=== PATIENT | male | born 1935 | race Caucasian/White ===

== ENCOUNTER → 2016-11-07 | Outpatient (CLI) | payer MEDICARE, OTHER ==
[~2016-11-07] MED LIST: APIX5TAB PO; CHOL5000 PO; CHRO1TAB7 PO; CINN500C2 PO; CINNAMON PO; COCO1000 PO; ESCT10T PO; FAMO-119 PO; FISH1CAP15 PO; FLUT10SP NS; FLUT1DIS26 IH; GABA600T2 PO; GARLIC PO; GBPN300C PO; GLUC500C2 PO; HYDR-757 PO; LEVO5TAB2 PO; LISI10TA PO; LORA0.5T PO; LUTE10TA PO; MELO-195 PO; MNTL10T PO; MULT-608 PO; NEBI5TAB8 PO; PARSLEY PO; ROYAL JELLY PO; TAMS0.4C2 PO
--- NOTE | 2016-11-07 18:15 | Diagnostic Imaging Report ---
PA and lateral views of the chest. INDICATION: Shortness of breath. FINDINGS: The lungs are clear. There is mild hyperinflation, however. No effusion or pneumothorax. The heart size is normal. The mediastinum and maritza appear unremarkable. IMPRESSION: Hyperinflated clear lungs. Dictated by: Dictated on workstation # [id number]
== END ==
LOC: RAD 11:17
PROVIDERS: ATTEND Internal Medicine Critical Care Medicine
DX: G47.30 Sleep apnea, unspecified (principal); J44.9 Chronic obstructive pulmonary disease, unspecified; F41.9 Anxiety disorder, unspecified; R06.00 Dyspnea, unspecified
CPT/HCPCS: 71020

== ENCOUNTER → 2016-11-15 | Outpatient (CLI) | payer MEDICARE, OTHER | LOC: RT 12:44 | PROVIDERS: ATTEND Internal Medicine Critical Care Medicine | DX: R06.00 Dyspnea, unspecified (principal); J44.9 Chronic obstructive pulmonary disease, unspecified; G47.30 Sleep apnea, unspecified; F41.9 Anxiety disorder, unspecified | CPT/HCPCS: 94060; 94726; 94729 ==

== ENCOUNTER 2016-11-20 20:00 | Outpatient (CLI) | payer MEDICARE, OTHER | END 2016-11-21 06:55 | disposition home or self-care (01) | LOC: SLEEP 20:00 | PROVIDERS: ATTEND Internal Medicine Critical Care Medicine | DX: G47.30 Sleep apnea, unspecified (principal); R06.00 Dyspnea, unspecified; J44.9 Chronic obstructive pulmonary disease, unspecified; F41.9 Anxiety disorder, unspecified | CPT/HCPCS: 95811 ==

== ENCOUNTER → 2017-01-01 | Outpatient (CLI) | payer MEDICARE, OTHER ==
--- NOTE | 2017-01-03 08:37 | ECHOCARDIOGRAPHY REPORT ---
DATE OF SERVICE: 01/01/2017 REFERRING PHYSICIAN: Dr. Quintero MEASUREMENT: LVID end diastolic 5.0. IVS thickness 1.0. LVPW thickness 1.0. Left atrial diameter 3.3. Ejection fraction 60%. FINDINGS: 1. Technical quality is good. 2. The left ventricle is normal in size with normal contractility, systolic function appears to be normal. Estimated ejection fraction is 60%. 3. The left atrium is normal in size. No clot or thrombus was seen within the left atrium. 4. The right atrium and right ventricle are normal in size. No clot or thrombus were seen within the right side. 5. Mitral valve is normal in morphology with mild mitral regurgitation noted by color Doppler flow. No mitral valve prolapse. No mitral valve stenosis. 6. Aortic valve is trileaflet with normal opening and closing pattern, no significant aortic stenosis or regurgitation was seen. 7. Tricuspid valve is normal in morphology with mild tricuspid regurgitation noted by color Doppler flow, Doppler across tricuspid valve estimated pulmonary artery pressure of 9 + right atrial pressure. 8. Pulmonic valve is functioning normally. 9. No pericardial effusion. CONCLUSION: 1. Normal left ventricular size and systolic function. Estimated ejection fraction 60%. 2. Mild mitral regurgitation. Mild tricuspid regurgitation. 3. Estimated pulmonary artery pressure of 15 mmHg. Job ID: [id number] DocumentID: [id number] Dictated Date: 01/02/2017 15:01:29 Baggage Inspector Date: 01/03/2017 07:09:24 Dictated By: PANTERA MCDUFFIE MD
== END ==
LOC: CARD 12:00
PROVIDERS: ATTEND Internal Medicine Cardiovascular Disease
DX: R07.9 Chest pain, unspecified (principal); R06.00 Dyspnea, unspecified; I63.9 Cerebral infarction, unspecified; I26.99 Other pulmonary embolism without acute cor pulmonale; J44.9 Chronic obstructive pulmonary disease, unspecified; F17.201 Nicotine dependence, unspecified, in remission
CPT/HCPCS: 93306

== ENCOUNTER → 2017-01-02 | Outpatient (CLI) | payer MEDICARE, OTHER ==
[2017-01-02 09:29] LABS: ALBUMIN 4.1 G/DL (3.2-4.5); BILIRUBIN,TOTAL 0.4 MG/DL (0.1-1.0); CALCIUM 9.3 MG/DL (8.5-10.1); CREATININE SERUM 1.22 MG/DL (0.60-1.30)
[2017-01-03 07:22] LABS: HOMOCYSTEINE 18.6 umol/L (<=10.3)
[2017-01-04 08:02] LABS: LUPUS ANTICOAGULANT PTT 36.1 Seconds (24.4-41.7)
[2017-01-04 08:03] LABS: DIL RUSSELL VIPER VENOM SCREEN 1.25 ratio (0.00-1.20)
[2017-01-04 08:04] LABS: DRVVT SCREEN 1:1 MIX 1.08 ratio (0.00-1.20)
[2017-01-04 08:12] LABS: INR REF RML 1.2 (0.7-1.3); PT REF RML 14.9 SEC (10.5-15.7)
[2017-01-04 08:13] LABS: PTT LUPUS 34.6 SEC (20.6-39.2)
[2017-01-05 08:06] LABS: FACTOR 8 (VIII) ASSAY C 331 % (60-150)
[2017-01-08 07:56] LABS: FACTOR II 20210 MUTATIONC HET MUT (NEG)
[2017-01-08 07:57] LABS: FACTOR II 20210 MUTATION INT SEE FOOTNOTE
[2017-01-09 10:16] LABS: CLIN PATHOLOGY REPORT FOOTNOTE
== END ==
LOC: LAB 08:15
PROVIDERS: ATTEND Internal Medicine Cardiovascular Disease
DX: R07.9 Chest pain, unspecified (principal); R06.00 Dyspnea, unspecified; I63.9 Cerebral infarction, unspecified; F17.201 Nicotine dependence, unspecified, in remission; I26.99 Other pulmonary embolism without acute cor pulmonale; J44.9 Chronic obstructive pulmonary disease, unspecified
CPT/HCPCS: 36415; 80053; 80061; 81240; 83090; 85240; 85307; 85610; 85613; 85705; 85730; 86146; 86147

== ENCOUNTER → 2017-01-03 | Outpatient (CLI) | payer MEDICARE, OTHER ==
[~2017-01-03] VITALS: Ht 172.7 cm; Wt 121.6 kg
[~2017-01-03] MED LIST changes: +CATHETER FLUSH 10 ML SYR IV PRN; +REGADENOSON 0.4 MG/5 ML SYR (LEXISCAN) IV ONE
[2017-01-03 09:22] VITALS: BP 130/61
[2017-01-03 09:28] VITALS: BP 151/56
[2017-01-03 09:41] VITALS: BP 130/58
[2017-01-03 09:43] VITALS: BP 129/68
--- NOTE | 2017-01-05 06:37 | STRESS TEST ---
DATE OF SERVICE: 01/03/2017 PROCEDURE: LEXISCAN MYOVIEW STRESS TEST REFERRING PHYSICIAN: Dr. Quintero FINDINGS: Baseline heart rate is 60. Baseline blood pressure 130/61. Baseline EKG is sinus rhythm with no ischemic changes. SUMMARY: The patient was injected with 10.31 millicurie of technetium-99 Myoview. The resting images were obtained. Then the patient started exercising with baseline heart rate, blood pressure and EKG as mentioned above. After 3 minutes and 35 seconds the patient was unable to exercise any further. Heart rate was 104. No ischemic changes were noted. There were nondiagnostic changes with [address] depression in lead II, [address] depression in aVF. Blood pressure was 161/56. The patient was given 0.4 mg of Lexiscan, followed by 29.6 millicurie of technetium-99 Myoview. Throughout the test there were no EKG changes. The resting and stress images were reviewed and compared in the short axis, horizontal long axis and vertical long axis views. Review of the images showed diaphragmatic attenuation which is affecting the quality of the images. There is mild decreased uptake at the mid to apical inferior wall and inferolateral wall with subtle reversibility. SSS is 8. SVS is 8. TID value 1.01. On the Gated images the left ventricle appeared to be normal size with normal contractility. Calculated ejection fraction 74%. CONCLUSIONS: 1. Poor exercise tolerance. The patient was able to exercise for 3 minutes 35 seconds on Terrence protocol. He did not achieve his target heart rate. Test was converted to Lexiscan Myoview stress test. 2. Nondiagnostic EKG changes with exercise returned to baseline during recovery. 3. No EKG changes with Lexiscan injection. 4. Diaphragmatic attenuation affecting the quality of the images with mild decreased uptake at the mid to apical inferior wall and inferolateral wall with subtle reversibility. No significant ischemia or infarction was noted. 5. Normal left ventricular size with normal contractility. Calculated ejection fraction 74%. Job ID: [id number] DocumentID: [id number] Dictated Date: 01/03/2017 14:04:49 Buggy Operator Date: 01/04/2017 02:07:39 Dictated By: PANTERA MCDUFFIE MD
== END ==
LOC: CARD 06:54
PROVIDERS: ATTEND Internal Medicine Cardiovascular Disease
DX: R07.9 Chest pain, unspecified (principal); R06.02 Shortness of breath; I63.9 Cerebral infarction, unspecified; I26.99 Other pulmonary embolism without acute cor pulmonale; J44.9 Chronic obstructive pulmonary disease, unspecified; F17.201 Nicotine dependence, unspecified, in remission
CPT/HCPCS: 78452; 93017

== ENCOUNTER → 2017-01-09 | Outpatient (CLI) | payer MEDICARE, OTHER ==
[~2017-01-09] MED LIST changes: -CATHETER FLUSH 10 ML SYR IV PRN; -REGADENOSON 0.4 MG/5 ML SYR (LEXISCAN) IV ONE
[2017-01-12 14:14] LABS: FACTOR 5 (LEIDEN) MUTATION Negative (Negative)
[2017-01-15 07:58] LABS: FACTOR 5 LEIDEN INTERP See Footnote
== END ==
LOC: LAB 10:47
PROVIDERS: ATTEND Internal Medicine Cardiovascular Disease
DX: I82.409 Acute embolism and thrombosis of unspecified deep veins of unspecified lower extremity (principal)
CPT/HCPCS: 36415; 81241

== ENCOUNTER 2017-01-31 19:50 | Outpatient (CLI) | payer MEDICARE, OTHER | END 2017-02-01 06:55 | disposition home or self-care (01) | LOC: SLEEP 19:50 | PROVIDERS: ATTEND Internal Medicine Critical Care Medicine | DX: G47.33 Obstructive sleep apnea (adult) (pediatric) (principal) | CPT/HCPCS: 95811 ==

== ENCOUNTER 2017-02-18 03:28 | Emergency (ER) | payer MEDICARE, OTHER ==
[~2017-02-18] VITALS: Ht 172.7 cm; Wt 116.1 kg
--- NOTE | 2017-02-18 04:20 | ED EENT ---
History of Present Illness General Chief Complaint: Oral/Throat Problems Stated Complaint: SORE THROAT Nursing Triage Note: PT AMBULATED TO ROOM. PT STATES HE HAS BEEN HAVING A SORE THROAT SINCE SUNDAY. COUGHING FOR ABOUT A WEEK. SPUTUM PRESENT SOMETIMES. Source: patient Exam Limitations: no limitations History of Present Illness Time seen by provider: 04:10 Initial Comments Here with report of sore throat, cough, runny nose and facial pain/congestion it 's been going on for a week. Does note sputum production. Denies fevers. He has had increasing steroid recently and is tapering and this has not helped. Cough medicines and cough drops are not helping. Denies chest pain. Main complaint is throat pain, facial fullness and ear pain. Timing/Duration: gradual, last week Severity: moderate Location: nose, throat, facial Prearrival Treatment: over the counter meds, prescription meds Modifying Factors: Worse With Coughing, Improves With Rest Associated Symptoms: cough, facial pain/swelling, No fever, nasal congestion/ drainage, sinus infection, sore throat, No tooth pain, No voice change Allergies and Home Medications Allergies Uncoded Allergies: ENVIRONMENTAL (Allergy, Unknown, 11/02/15) Home Medications Apixaban 5 Mg Tablet, 10 MG PO BID, #14 Ref 0 Prescribed by: SIMONE MILES on 10/30/15 0935 Cholecalciferol (Vitamin D3) 5,000 Unit Capsule, 5,000 UNIT PO DAILY, (Reported) Escitalopram Oxalate 10 Mg Tablet, 1 EACH PO DAILY, (Reported) Famotidine 20 Mg Tablet, 20 MG PO BID, #30 Ref 0 Prescribed by: CARMEL FELTON on 11/01/15 2336 Fluticasone Furoate 10 Gm [place].susp, 10 GM NS Q8 PRN, (Reported) USES FOR NASAL CONGESTION Fluticasone/Salmeterol 1 Each Blst.w.dev, 1 PUFF IH BID, (Reported) Gabapentin 600 Mg Tablet, 1,200 MG PO HS, (Reported) Hydrocodone/Acetaminophen 1 Each Tablet, 1 TAB PO DAILY, (Reported) Levocetirizine Dihydrochloride 5 Mg Tablet, 5 MG PO DAILY, (Reported) Levofloxacin 500 Mg Tablet, 500 MG PO DAILY, #7 Ref 0 Prescribed by: BRANDEN ROSAS on 02/18/17 0542 Lisinopril 10 Mg Tablet, 10 MG PO DAILY, (Reported) Lorazepam 0.5 Mg Tablet, 0.5 MG PO HS, (Reported) Meloxicam 15 Mg Tablet, 15 MG PO DAILY, (Reported) Montelukast Sodium 10 Mg Tablet, 1 TAB PO DAILY, (Reported) Tamsulosin HCl 0.4 Mg Cap.er.24h, 0.4 MG PO DAILY, (Reported) Review of Systems Constitutional: see HPI, No chills, No fever Eyes: No Symptoms Reported Ears: See HPI, Pain Nose: purulent discharge Mouth: no symptoms reported Throat: see HPI, pain, denies swelling, denies neck stiffness, denies aphonia Respiratory: see HPI, cough, No short of breath Cardiovascular: no symptoms reported Gastrointestinal: no symptoms reported All Other Systems Reviewed Negative Unless Noted: Yes Past Sononoy-Qkgqsw-Jfooes Hx Patient Social History Alcohol Use: Denies Use Recreational Drug Use: No Smoking Status: Former Smoker Type Used: Cigarettes Former Smoker/When Quit: Oct 29, 1989 2nd Hand Smoke Exposure: Yes Recent Foreign Travel: No Contact w/Someone Who Travel: No Recent Infectious Disease Expo: No Recent Hopitalizations: No Immunizations Up To Date Tetanus Booster (TDap): Less than 5yrs PED Vaccines UTD: Yes Date of Pneumonia Vaccine: Jun 28, 2009 Date of Influenza Vaccine: Jun 28, 2015 Seasonal Allergies Seasonal Allergies: Yes Surgeries HX Surgeries: Yes Surgeries: Appendectomy, Gallbladder Respiratory Hx Respiratory Disorders: Yes (WEARS CPAP AT NITE) Cardiovascular Hx Cardiac Disorders: No Neurological Hx Neurological Disorders: No Reproductive System Hx Reproductive Disorders: No Sexually Transmitted Disease: No Genitourinary Hx Genitourinary Disorders: Yes (KIDNEY STONE) Gastrointestinal Hx Gastrointestinal Disorders: Yes (POLYPS REMOVED FROM COLON) Musculoskeletal Hx Musculoskeletal Disorders: Yes (ARTHRITIS/BULGING DISC/SCIATIC NERVE PROBLEMS) Endocrine Hx Endocrine Disorders: No HEENT HX ENT Disorders: No HEENT Disorders: Cataract Cancer Hx Cancer: Yes Cancer: Skin Psychosocial Hx Psychiatric Problems: No Integumentary HX Skin/Integumentary Disorder: No Blood Transfusions Hx Blood Disorders: No Adverse Reaction to a Blood Tr: No Reviewed Nursing Assessment Reviewed/Agree w Nursing PMH: Yes Family Medical History Significant Family History: No Pertinent Family Hx Physical Exam Vital Signs Vital Sign - Last 12Hours 02/18/17 03:41 Temp 97.8 Pulse 62 Resp 20 B/P (MAP) 116/62 Pulse Ox 95 O2 Delivery Room Air General Appearance: WD/WN, no apparent distress Eyes: bilateral eye EOMI, bilateral eye PERRL, bilateral eye normal inspection Ears: bilateral ear TM normal, bilateral ear auricle normal, bilateral ear canal normal Nose: No active bleeding, discharge, sinus tenderness Mouth/Throat: pharynx tenderness, No trismus, No voice changes Neck: full range of motion, supple, normal inspection Cardiovascular: regular rate, rhythm, no murmur Respiratory: lungs clear, normal breath sounds Gastrointestinal: non tender, soft Neurologic/Psychiatric: alert, oriented x 3 Skin: normal color, warm/dry Progress/Results/Core Measures Results/Orders My Orders Orders - BRANDEN ROSAS MD Chest Pa/Lat (2 View) (02/18/17 04:19) Albuterol/Ipra Inhalation Soln (Duoneb I (02/18/17 04:30) Svn Sm Volume Nebulizer Rt-Rfs (02/18/17 04:19) Dexamethasone Pf Injection (Decadron Pf (02/18/17 05:29) Levofloxacin Tablet (Levaquin Tablet) (02/18/17 05:32) Medications Given in ED Current Medications Medications Dose Ordered Sig/Erica Route Start Time Stop Time Status Last Admin Dose Admin Albuterol/ Ipratropium 3 ml ONCE ONCE INH 02/18/17 04:30 02/18/17 04:31 DC 02/18/17 04:29 3 ML Vital Signs/I&O Vital Sign - Last 12Hours 02/18/17 02/18/17 03:41 04:30 Temp 97.8 Pulse 62 Resp 20 B/P (MAP) 116/62 Pulse Ox 95 95 O2 Delivery Room Air Room Air Blood Pressure Mean: 80 Progress Note : Progress Note Seen and evaluated. Chest x-ray ordered. Duo neb ordered. This did not significantly help. Patient does have anterior sinus tenderness with complaint of ear fullness and nasal congestion. He has persistent cough. No indication of pneumonia. Does have concerning findings for sinusitis. Decadron 10 mg IM. Levaquin 500 mg by mouth initiated. Discharged home with return precautions. Patient verbalize understanding instructions and agreement with plan. He is to follow-up with Dr. Quintero earlier this week for recheck and further evaluation. Departure Impression Impression: Primary Impression: Sinusitis Qualified Codes: J01.90 - Acute sinusitis, unspecified Disposition: HOME, SELF-CARE Condition: Stable Departure-Patient Inst. Decision time for Depature: 05:38 Referrals: JENNA QUINTERO MD (PCP/Family) Primary Care Physician Patient Instructions: Sinusitis, Adult (DC) Add. Discharge Instructions: All discharge instructions reviewed with patient and/or family. Voiced understanding. Take medications as directed. Follow-up with Dr. Quintero early this week for recheck and further evaluation. You may use Afrin nasal spray or the generic, 12 hour relief, 2 sprays to each nostril twice daily for 3 days only and then stop. Do not use more than 3 days. Scripts Levofloxacin (Levofloxacin) 500 Mg Tablet 500 MG PO DAILY, #7 TAB 0 Refills Prov: BRANDEN ROSAS MD 02/18/17 Copy Copies To 1: JENNA QUINTERO MD, TIMOTHY D MD Feb 18, 2017 04:20
[2017-02-18] MEDS ORDERED: RT-ALBUTEROL/IPRATROPIUM 3 ML (DUONEB) VIAL INH ONE (04:30)
[2017-02-18] MEDS ORDERED: DEXAMETHASONE PF 10 MG/ML (DECADRON) VIAL IM STA (05:29)
[2017-02-18] MEDS ORDERED: LEVOFLOXACIN 500 MG TAB (LEVAQUIN) PO STA (05:32)
[2017-02-18] MEDS ORDERED: LEVO500T80 PO (05:42)
[2017-02-18 05:50] VITALS: BP 116/62
--- NOTE | 2017-02-18 10:19 | Diagnostic Imaging Report ---
COMPARISON: 11/07/16 Pulmonary vasculature slightly prominent but stable from previous imaging. Heart unremarkable. No infiltrates, effusions or pneumothorax. IMPRESSION: 1. Stable chest with minimal prominence of the pulmonary vasculature. Dictated by: Dictated on workstation # [id number]
== END 2017-02-18 05:50 | disposition home or self-care (01) ==
LOC: EDUNIT# 03:28 → ER 03:31
DX: J32.9 Chronic sinusitis, unspecified (principal); Z79.01 Long term (current) use of anticoagulants; Z87.891 Personal history of nicotine dependence
CPT/HCPCS: 71020; 94640; 99282

== ENCOUNTER → 2017-04-04 | Outpatient (CLI) | payer MEDICARE, OTHER ==
[~2017-04-04] MED LIST changes: +LEVO500T80 PO
[2017-04-04 10:09] LABS: ALBUMIN 3.8 GM/DL (3.2-4.5); BILIRUBIN,DIRECT 0.3 MG/DL (0.0-0.3); BILIRUBIN,INDIRECT 0.3 MG/DL; BILIRUBIN,TOTAL 0.6 MG/DL (0.1-1.0); TOTAL PROTEIN 6.6 GM/DL (6.4-8.2)
== END ==
LOC: LAB 09:20
PROVIDERS: ATTEND Physician Assistant
DX: E78.2 Mixed hyperlipidemia (principal)
CPT/HCPCS: 36415; 80061; 80076

== ENCOUNTER → 2018-02-12 | Outpatient (CLI) | payer MEDICARE, OTHER ==
[2018-02-12 08:59] LABS: BILIRUBIN,TOTAL 0.6 MG/DL (0.1-1.0); CALCIUM 9.3 MG/DL (8.5-10.1); CREATININE SERUM 1.43 MG/DL (0.60-1.30); POTASSIUM 4.1 MMOL/L (3.6-5.0); TOTAL PROTEIN 7.1 GM/DL (6.4-8.2)
== END ==
LOC: LAB 08:18
PROVIDERS: ATTEND Internal Medicine Cardiovascular Disease
DX: R07.9 Chest pain, unspecified (principal); R06.00 Dyspnea, unspecified; I63.9 Cerebral infarction, unspecified; F17.201 Nicotine dependence, unspecified, in remission; M54.5 Low back pain; R09.89 Other specified symptoms and signs involving the circulatory and respiratory systems
CPT/HCPCS: 36415; 80053; 80061; 84443

== ENCOUNTER → 2018-02-12 | Outpatient (CLI) | payer MEDICARE, OTHER ==
[~2018-02-12] MED LIST changes: +IOHEXOL 350 MG/ML 100 ML (OMNIPAQUE 350) VIAL IV ONE; +NS 250 ML (IVPB) BAG IV ONE
[2018-02-12 09:31] LABS: CREATININE SERUM 1.43 MG/DL (0.60-1.30)
--- NOTE | 2018-02-12 09:46 | Diagnostic Imaging Report ---
PROCEDURE: CT angiography of the chest with contrast. TECHNIQUE: Multiple contiguous axial images were obtained through the chest after uneventful bolus administration of intravenous contrast. Reconstructed CTA MIP acquisitions were also performed. INDICATION: Shortness of breath and hypoxia. Comparison made with prior examination 11/01/2015. FINDINGS: There are no discrete pulmonary nodules, masses or infiltrates. There is some COPD with mild bibasilar interstitial scarring. There is no pathologically enlarged adenopathy in the chest. No pleural or pericardial fluid. There is no pneumothorax. Heart size is normal. Thoracic aorta is normal in caliber without evidence of dissection. There are no filling defects seen within the pulmonary arteries to suggest pulmonary embolism. The visualized intra-abdominal structures are unremarkable apart from a left renal cyst. There are mild degenerative changes in the spine. IMPRESSION: Unremarkable CTA chest. Specifically, there is no evidence of pulmonary embolism or aortic dissection. COPD with mild bibasilar interstitial scarring. Left renal cyst. Thoracic spondylosis. Dictated by: Dictated on workstation # [id number]
== END ==
LOC: RAD 08:14
PROVIDERS: ATTEND Nurse Practitioner Family
DX: J98.4 Other disorders of lung (principal); J30.9 Allergic rhinitis, unspecified; M79.89 Other specified soft tissue disorders
CPT/HCPCS: 36415; 71275; 82565; 84520

== ENCOUNTER → 2018-02-25 | Outpatient (CLI) | payer MEDICARE, OTHER ==
[~2018-02-25] MED LIST changes: -IOHEXOL 350 MG/ML 100 ML (OMNIPAQUE 350) VIAL IV ONE; -NS 250 ML (IVPB) BAG IV ONE
== END ==
LOC: CARD 12:45
PROVIDERS: ATTEND Internal Medicine Cardiovascular Disease
DX: R07.9 Chest pain, unspecified (principal); R06.00 Dyspnea, unspecified; I07.1 Rheumatic tricuspid insufficiency; I63.9 Cerebral infarction, unspecified; R09.89 Other specified symptoms and signs involving the circulatory and respiratory systems; M54.5 Low back pain; F17.201 Nicotine dependence, unspecified, in remission
CPT/HCPCS: 93306

== ENCOUNTER → 2018-08-21 | Outpatient (CLI) | payer MEDICARE, OTHER ==
[~2018-08-21] VITALS: Ht 172.7 cm; Wt 122.0 kg
[~2018-08-21] MED LIST changes: +CATHETER FLUSH 10 ML SYR IV PRN; +HYDR-4226 PO; -HYDR-757 PO; +REGADENOSON 0.4 MG/5 ML SYR (LEXISCAN) IV ONE
[2018-08-21 09:22] VITALS: BP 157/86
[2018-08-21 09:25] VITALS: BP 155/82
--- NOTE | 2018-08-21 11:43 | STRESS TEST ---
DATE OF SERVICE: 08/21/2018 LEXISCAN MYOVIEW STRESS TEST REPORT REFERRING PHYSICIAN: Dr. Quintero. Baseline heart rate 66, baseline blood pressure 137/70. Baseline EKG is sinus rhythm with no ischemic changes. In summary, the patient was injected with 10.55 mCi of technetium-99 Myoview and the resting images were obtained. Then, the patient received 0.4 mg of Lexiscan followed by 29.0 mCi of technetium-99 Myoview. Throughout the test, there were no EKG changes. The resting and stress images were reviewed and compared in the short axis, horizontal long axis, and vertical long axis views. Review of the images showed good radiotracer uptake with mild apical thinning, no significant ischemia or infarction was seen. SSS is 3, SDS 3, TID value 1.09. On the gated images, the left ventricle appeared to be normal size with normal contractility. Calculated ejection fraction 67%. CONCLUSION: 1. The patient tolerated Lexiscan well. 2. Diaphragmatic attenuation with no significant ischemia or infarction on SPECT images. 3. Normal left ventricular size with normal contractility. Calculated ejection fraction 67%. Job ID: [id number] DocumentID: [id number] Dictated Date: 08/21/2018 11:26:38 Bench Manager Date: 08/21/2018 11:43:07 Dictated By: PANTERA MCDUFFIE MD
== END ==
LOC: CARD 07:21
PROVIDERS: ATTEND Internal Medicine Cardiovascular Disease
DX: R07.9 Chest pain, unspecified (principal); E78.2 Mixed hyperlipidemia; R06.02 Shortness of breath; K21.9 Gastro-esophageal reflux disease without esophagitis; J44.9 Chronic obstructive pulmonary disease, unspecified
CPT/HCPCS: 78452; 93017

== ENCOUNTER → 2018-10-17 | Outpatient (CLI) | payer MEDICARE, OTHER ==
[~2018-10-17] MED LIST changes: -CATHETER FLUSH 10 ML SYR IV PRN; -GABA600T2 PO; +GBPN600T PO; -REGADENOSON 0.4 MG/5 ML SYR (LEXISCAN) IV ONE
--- NOTE | 2018-10-17 12:49 | Diagnostic Imaging Report ---
TIME OF EXAM: 10/17/2018 12:39 PM REASON FOR EXAM: Back pain with radiculopathy. TECHNIQUE: Three views of the lumbar spine. COMPARISON: 03/30/2014. FINDINGS: There is mild right convex curvature of the lumbar spine centered at L1-L2. There is mild rightward translation of L2 on L3. There is grade 1 anterolisthesis of L5 on S1. There is mild diffuse osteopenia. Mild height loss of the lumbar spine at multiple levels appears to be chronic. No acute compression deformity is seen. There is moderate multilevel degenerative change throughout the lumbar spine, and marked at L5-S1. There is facet arthropathy in the lower lumbar spine. There is aortic atherosclerosis. IMPRESSION: 1. Grade 1 anterolisthesis and marked degenerative change at L5-S1 moderate degenerative changes elsewhere in the lumbar spine. No acute fractures seen. Dictated by: Dictated on workstation # [id number]
== END ==
LOC: RAD 11:58
PROVIDERS: ATTEND Student in an Organized Health Care Education/Training Program
DX: M47.817 Spondylosis without myelopathy or radiculopathy, lumbosacral region (principal); M54.16 Radiculopathy, lumbar region; M47.816 Spondylosis without myelopathy or radiculopathy, lumbar region; M70.62 Trochanteric bursitis, left hip
CPT/HCPCS: 72100

== ENCOUNTER → 2019-03-28 | Outpatient (CLI) | payer MEDICARE, OTHER ==
[2019-03-28 12:14] LABS: CREATININE SERUM 1.48 MG/DL (0.60-1.30)
== END ==
LOC: LAB 11:30
PROVIDERS: ATTEND Internal Medicine Cardiovascular Disease
DX: I65.23 Occlusion and stenosis of bilateral carotid arteries (principal)
CPT/HCPCS: 36415; 82565; 84520

== ENCOUNTER → 2019-04-11 | Outpatient (CLI) | payer MEDICARE, OTHER ==
[2019-03-28 12:14] LABS: CREATININE SERUM 1.48 MG/DL (0.60-1.30)
[~2019-04-11] MED LIST changes: +HOLD METFORMIN - RECEIVED CONTRAST 20 ML VIAL IV SCH; +IOHEXOL 350 MG/ML 100 ML (OMNIPAQUE 350) VIAL IV ONE; +NS 100 ML (IVPB) BAG IV ONE
[2019-04-11 12:18] LABS: CREATININE SERUM 1.29 MG/DL (0.60-1.30)
--- NOTE | 2019-04-11 13:44 | Diagnostic Imaging Report ---
REASON FOR EXAM: Bilateral carotid artery stenosis. TIME OF EXAM: 04/11/2019 1:31 PM COMPARISON: CTA chest on 02/12/2018. TECHNIQUE: Contrast-enhanced thin section helical images were obtained from the mediastinum to the sella with the bolus of contrast timed for the optimal opacification of the arterial structures of the neck per departmental CTA protocol. Postprocessing and retro-reconstruction with coronal and sagittal reformatted images of the angiographic views of the vessels were obtained and were reviewed. 3D reformatted images were reviewed. FINDINGS: The visualized portions of the aortic arch demonstrate no evidence of aneurysm or dissection. The origin of the arch vessels is unremarkable. The brachiocephalic artery is normal in course and caliber. The left common carotid origin is unremarkable. The right subclavian artery is normal in course and caliber. Both common carotid arteries are normal in course and caliber. Atherosclerotic plaque is seen in the bilateral carotid bulbs and proximal internal carotid arteries. There is approximately 70% stenosis of the proximal left ICA based on NASCET criteria (image 150, series 601). The left vertebral artery is dominant. The origin of the right vertebral artery is seen and is unremarkable. The origin of the left vertebral artery is seen and is unremarkable. There is no focal stenosis seen within the neck. There is no dissection. The vertebral arteries are well visualized to up to the level of the basilar artery. The osseous structures of the cervical spine demonstrate degenerative changes without acute abnormality. Included views through the lung apices demonstrate no focal consolidation. Included views through the intracranial structures demonstrate no acute abnormalities. Left mastoidectomy changes are noted with left-sided cochlear implant. IMPRESSION: 1. Approximately 70% stenosis in the proximal left ICA secondary to atherosclerotic plaque. Dictated by: Dictated on workstation # [id number]
== END ==
LOC: RAD 03-28 11:33
PROVIDERS: ATTEND Internal Medicine Cardiovascular Disease
DX: I65.23 Occlusion and stenosis of bilateral carotid arteries (principal)
CPT/HCPCS: 36415; 70498; 82565; 84520

== ENCOUNTER → 2019-06-20 | Outpatient (CLI) | payer MEDICARE, OTHER ==
[~2019-06-20] MED LIST changes: -HOLD METFORMIN - RECEIVED CONTRAST 20 ML VIAL IV SCH; -IOHEXOL 350 MG/ML 100 ML (OMNIPAQUE 350) VIAL IV ONE; -NS 100 ML (IVPB) BAG IV ONE; +RT-ALBUTEROL SULF 2.5 MG/3 ML PRE-MIX VIAL INH ONE; +RT-ALBUTEROL SULF 2.5 MG/3 ML PRE-MIX VIAL ONE
== END ==
LOC: RT 07:36
PROVIDERS: ATTEND Nurse Practitioner Family
DX: J30.9 Allergic rhinitis, unspecified (principal); J98.4 Other disorders of lung; G47.33 Obstructive sleep apnea (adult) (pediatric); G47.36 Sleep related hypoventilation in conditions classified elsewhere
CPT/HCPCS: 94060; 94726; 94729

== ENCOUNTER → 2019-07-04 | Outpatient (CLI) | payer MEDICARE, OTHER ==
[~2019-07-04] MED LIST changes: -RT-ALBUTEROL SULF 2.5 MG/3 ML PRE-MIX VIAL INH ONE; -RT-ALBUTEROL SULF 2.5 MG/3 ML PRE-MIX VIAL ONE
--- NOTE | 2019-07-04 09:25 | Diagnostic Imaging Report ---
PROCEDURE: CT chest without contrast. TECHNIQUE: Multiple contiguous axial images were obtained through the chest without the use of intravenous contrast. Auto Exposure Controls were utilized during the CT exam to meet ALARA standards for radiation dose reduction. INDICATION: Shortness of breath. Patient with history of melanoma. COMPARISON: Multiple priors, most recently CT angiography chest performed on 02/12/2018. FINDINGS: TRACHEA AND MAIN BRONCHI: Patent without evidence of tracheal or endobronchial lesion. LUNGS AND PLEURA: Mild dependent subsegmental atelectasis. No consolidation or pulmonary mass. No pleural effusion or pneumothorax. MEDIASTINUM AND JACKLYN: Visualized thyroid gland is normal. No mediastinal or hilar lymphadenopathy. Esophagus is nondistended. HEART AND VESSELS: Heart is normal in size. No pericardial effusion. Atherosclerotic calcification involves the aorta and its branches, including the coronary arteries. Thoracic aorta is nonaneurysmal. DIAPHRAGM AND UPPER ABDOMEN: The gallbladder is surgically absent. There is an unchanged cyst in the left hepatic dome. Unchanged exophytic cyst in the upper pole left kidney. The diaphragm and visualized upper abdomen are otherwise unremarkable. CHEST WALL: Unremarkable. BONES: Mild degenerative changes involve the spine. No acute osseous abnormality. Fracture deformities involving the left 5th through 9th anterior and anterolateral ribs are new since the prior exam, however, demonstrate periosteal reaction and are subacute to chronic in nature. IMPRESSION: 1. No acute chest disease. 2. Fracture deformities involving the left 5th through 9th anterior and anterolateral ribs are new since the prior exam, however, demonstrate periosteal reaction and are subacute to chronic in nature. Recommend correlation with history and physical exam. 3. Other chronic and incidental findings are detailed above. Dictated by: Dictated on workstation # [id number]
== END ==
LOC: RAD 08:52
PROVIDERS: ATTEND Nurse Practitioner Family
DX: J98.11 Atelectasis (principal); N28.1 Cyst of kidney, acquired; S22.42XA Multiple fractures of ribs, left side, initial encounter for closed fracture; M47.9 Spondylosis, unspecified; Z90.49 Acquired absence of other specified parts of digestive tract; J30.9 Allergic rhinitis, unspecified; G47.33 Obstructive sleep apnea (adult) (pediatric); R09.02 Hypoxemia
CPT/HCPCS: 71250

== ENCOUNTER → 2019-10-22 | Outpatient (CLI) | payer MEDICARE, OTHER ==
[2019-10-22 11:20] LABS: ALBUMIN 3.9 GM/DL (3.2-4.5); BILIRUBIN,TOTAL 0.4 MG/DL (0.1-1.0); CALCIUM 9.4 MG/DL (8.5-10.1); CREATININE SERUM 1.49 MG/DL (0.60-1.30); POTASSIUM 3.9 MMOL/L (3.6-5.0); TOTAL PROTEIN 6.9 GM/DL (6.4-8.2)
== END ==
LOC: LAB 10:31
PROVIDERS: ATTEND Internal Medicine Cardiovascular Disease
DX: E78.2 Mixed hyperlipidemia (principal); I10 Essential (primary) hypertension; R07.9 Chest pain, unspecified; R06.09 Other forms of dyspnea
CPT/HCPCS: 36415; 80053; 80061

== ENCOUNTER 2019-11-18 05:45 | Outpatient (CLI) | payer MEDICARE, OTHER ==
[~2019-11-18] VITALS: Ht 172.7 cm; Wt 126.4 kg
[2019-11-18] MEDS ORDERED: LEVO5TAB12 PO (15:46)
[2019-11-18] MEDS ORDERED: CHOL500061 PO (15:46)
[2019-11-18] MEDS ORDERED: LORA-404 PO (15:46)
[2019-11-18] MEDS ORDERED: MONT10TA26 PO (15:46)
[2019-11-18] MEDS ORDERED: ESCI20TA45 PO (15:46)
[2019-11-18] MEDS ORDERED: MELO15TA39 PO (15:46)
[2019-11-18] MEDS ORDERED: RT-ALBUINH IH (15:51)
[2019-11-18] MEDS ORDERED: MELA1TAB15 PO (15:51)
[2019-11-18] MEDS ORDERED: ATOR20TA66 PO (15:51)
[2019-11-18] MEDS ORDERED: FAMO-119 PO (15:51)
[2019-11-18] MEDS ORDERED: APIX5TAB PO (15:51)
[2019-11-18] MEDS ORDERED: GLUC100016 PO (15:51)
[2019-11-18] MEDS ORDERED: MULT-1056 PO (15:51)
[2019-11-18] MEDS ORDERED: HYDR25TA4 PO (15:51)
[2019-11-18] MEDS ORDERED: PRAM1TAB5 PO (15:51)
[2019-11-18] MEDS ORDERED: CINN500C2 PO (15:51)
[2019-11-18] MEDS ORDERED: GARL500C11 PO (15:51)
== END 2019-11-18 15:52 | disposition home or self-care (01) ==
LOC: PREOP 05:45
PROVIDERS: ATTEND Internal Medicine
DX: Z01.818 Encounter for other preprocedural examination (principal)

== ENCOUNTER 2019-11-21 06:45 | Day surgery (SDC) | payer MEDICARE, OTHER ==
--- NOTE | 2019-11-18 10:41 | HISTORY AND PHYSICAL ---
DATE OF SERVICE: PANENDOSCOPY SUMMARY HISTORY OF PRESENT ILLNESS: The patient is an 83-year-old white male seen in the office on 11/13/2019 for followup of past pulmonary embolism and restless leg syndrome. The patient also has a history of allergic asthma and rhinitis with the rhinitis being much worse than the asthma. He states that he has been having increased problems with choking sensation with intermittent dysphagia over the past month or 2 predominantly to solids, but occasionally to liquids. Will get a brackish taste in the back of his throat and when he coughs and chokes. Bleeds to emesis at times. He has noted no hematemesis and denies melena or bright red blood per rectum. He is obese, has had difficulty with weight loss and his weight was up another 5.8 pounds over the past four months. It has been over 10 years since his last colonoscopy as well. He is not aware of any family history for GI tract malignancy. He is not aware of it but his states that his restless legs symptoms have still been significant throughout the night despite ropinirole 0.5 mg. He also takes gabapentin 1200 mg at bedtime. He reports he has not had as much energy, so he has not been walking as much. PHYSICAL EXAMINATION: GENERAL: Reveals a pleasant overweight white male who appears younger than his stated age. VITAL SIGNS: Weight 278.8 pounds, blood pressure 134/76. CHEST: Clear. CARDIOVASCULAR: Reveals regular rate and rhythm without murmur, S3 or S4. ABDOMEN: Soft, supple. Mild epigastric discomfort to palpation is present with no evidence for rebound or guarding. EXTREMITIES: Reveal no cyanosis, clubbing or edema. ASSESSMENT AND PLAN: 1. The patient was set up for screening colonoscopy and diagnostic EGD on 11/21/2019. Prep instructions with the Suprep kit were given and questions were answered. The patient was sent for a basic metabolic panel and a CBC as well as ferritin levels. This did not reveal any evidence for iron deficiency anemia. CBC was essentially normal with hemoglobin of 14.4 and a ferritin level of 137.7. We will double his ropinirole to 1 mg. 2. 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 Continue Eliquis, but hold it 48 hours prior to endoscopy. Job ID: [id number] DocumentID: [id number] Dictated Date: 11/13/2019 16:05:35 Apprentice Embalmer Date: 11/13/2019 16:25:30 Dictated By: JENNA SÁNCHEZ MD MTDD
[~2019-11-21] VITALS: Ht 172.7 cm; Wt 126.4 kg
[2019-11-21] VITALS (11 sets, daily range): BP systolic 111–146; BP diastolic 67–79
[~2019-11-21 06:45] MED LIST changes: +ATOR20TA66 PO; +CHOL500061 PO; +ESCI20TA45 PO; +GARL500C11 PO; +GLUC100016 PO; +HYDR25TA4 PO; +LEVO5TAB12 PO; +LORA-404 PO; +MELA1TAB15 PO; +MELO15TA39 PO; +MONT10TA26 PO; +MULT-1056 PO; +PRAM1TAB5 PO; +RT-ALBUINH IH
[2019-11-21] MEDS ORDERED: D5 LR IV SOLUTION 1,000 ML IV ONE (07:05)
[2019-11-21] MEDS ORDERED: D5 LR IV SOLUTION 1,000 ML IV STA (07:17)
[2019-11-21] MEDS ORDERED: LIDOCAINE JELLY 2% 6 ML SYRINGE MM PRN (07:30)
[2019-11-21] MEDS ORDERED: HURRICAINE EXT TUBE (BENZOCAINE) XX PRN (07:30)
[2019-11-21] MEDS ORDERED: fentaNYL INJECTION 100 MCG/2 ML AMP IVP ONE (07:30)
[2019-11-21] MEDS ORDERED: LIDOCAINE JELLY 2% 6 ML SYRINGE ONE (07:42)
[2019-11-21] MEDS ORDERED: HURRICAINE EXT TUBE (BENZOCAINE) ONE (07:43)
[2019-11-21] MEDS ORDERED: fentaNYL INJECTION 100 MCG/2 ML AMP ONE (07:43)
[2019-11-21] MEDS ORDERED: MIDAZOLAM 5 MG/5 ML (VERSED) VIAL ONE (07:43)
[2019-11-21] MEDS: MIDAZOLAM 5 MG/5 ML (VERSED) VIAL IV PRN ×3 (07:58→08:04)
--- NOTE | 2019-11-21 09:45 | NUR ---
PT C/O NAUSEA WITH SMALL AMT OF EMESIS, UP TO BR AND PASSED AIR, FEELING BETTER NOW.
--- NOTE | 2019-11-21 12:02 | Pre-Op Note & Conscious Sedat ---
Pre-Operative Progress Note H&P Reviewed The H&P was reviewed, patient examined and no changes noted. Date H&P Reviewed: Nov 21, 2019 Time H&P Reviewed: 07:40 Conscious Sedation Pre-Proced ASA Score 3 For ASA 3 and 4: Consider anesthesia and medical clearance. Also, for patients with a history of failed moderate sedation consider anesthesia. Airway Lungs Heart ASA score ASA 1: a normal healthy patient ASA 2: a patient with a mild systemic disease (mid diabetes, controlled hypertension, obesity ASA 3: a patient with a severe systemic disease that limits activity (angina, COPD, prior Myocardial infarction) ASA 4: a patient with an incapacitating disease that is a constant threat to life (CHF, renal failure) ASA 5: a moribund patient not expected to survive 24 hrs. (ruptured aneurysm) ASA 6: a declared brain- patient whose organs are being harvested. For emergent operations, add the letter E after the classification Mallampati Classification Grade 2 Sedation Plan Analgesia, Amnesia, Plan communicated to team members, Discussed options with patient/fam, Discussed risks with patient/fam The patient is an appropriate candidate to undergo the planned procedure, sedation, and anesthesia. The patient immediately re-assessed prior to indication. JENNA SÁNCHEZ MD Nov 21, 2019 12:01
--- NOTE | 2019-11-21 17:09 | OPERATIVE REPORT ---
DATE OF SERVICE: PANENDOSCOPY SUMMARY Colonoscopy is done for screening purposes. EGD was performed for evaluation of intermittent dysphagia. DESCRIPTION OF PROCEDURE: The patient was placed in the left lateral decubitus position. Prior to undergoing colonoscopy, digital rectal evaluation was performed. Anal sphincter tone was normal and the perianal reflexes intact. There is shallow depression with margins beginning just above the anal verge and extending about 2 cm proximally. The colonic wall was not fixed. There was some minimal induration noted. No other abnormalities were noted. Digital inspection of the anal canal overriding the prostate, which made it rather difficult to appreciate prostatic tissue. Clearly, there was no evidence for any significant BPH. The colonoscope was then inserted into the rectum under direct visualization advanced to the cecum. The cecum was identified by identification of ileocecal strap. Photographic documentation was obtained. Careful inspection was made as possible. It was withdrawn. The patient tolerated the procedure well. FINDINGS: Present just above the anal verge was a shallow area of polyp type tissue with some heaping of the border. There was a questionable small central area of ulceration. It was slightly indurated on biopsies which were obtained and highly suspicious for underlying adenocarcinoma, squamous cell would be much less likely, but as it appears to be just above the anal verge. The one diminutive 2 mm sessile rectal polyp was noted. Photographs were obtained. The patient had moderate to severe sigmoid and descending colonic diverticular disease without evidence for diverticulitis. No evidence for neoplasia were noted in these areas. The splenic flexure and transverse colon as well as hepatic flexure were unremarkable. There was a diminutive 5 mm sessile proximal ascending colonic polyp with adenomatous features without ulceration. It was biopsied and ablated and submitted for histopathology after a photograph was obtained. The cecum and the colon was unremarkable. ASSESSMENT: Small, approximately 2 cm area of depression with questionable small ulceration with heaped borders was noted in the distal rectum just above the anal verge along the anterior rectal wall suspicious for adenocarcinoma is present. Biopsies were obtained and pending. The patient had moderate to severe diverticular disease confined to the sigmoid and descending colon without evidence for diverticulitis. One diminutive adenomatous appearing polyp was removed from the proximal ascending colon via hot forceps with no blood loss. We then proceeded with EGD evaluation. The upper endoscope was inserted in the oral cavity and under direct visualization, the esophagus was intubated. The scope was passed down the esophagus through the stomach and the second portion of the duodenum. A careful inspection was made as the endoscope was withdrawn. The patient tolerated the procedure well. FINDINGS: The proximal, mid and distal esophagus was unremarkable. There was no evidence of rings, webs, strictures, Bravo's change or erosive esophagitis. The cardia of the stomach was unremarkable. There was hemosiderin stranding throughout the cardia and to a lesser extent the antrum of the stomach without evidence for ulceration. Findings were highly suggestive of hemorrhagic gastritis. Biopsies were obtained and submitted for histopathology and Helicobacter evaluation. There was some mild erythema in the duodenal bulb as well as the second portion of the duodenum without evidence for ulceration. Villous architecture was unremarkable otherwise. ASSESSMENT: No evidence for mechanical obstruction of the esophagus was noted. Findings present in the fundus and antrum of the stomach were suspicious for underlying hemorrhagic gastritis. There also appeared to be some mild duodenitis involving the first and second portion of the duodenum without evidence for peptic ulcer disease. We will await histopathology report. In regards to colonoscopic findings suggesting possibility of adenocarcinoma of the distal rectum, he would likely be a good candidate for transanal resection considering location. If there is evidence for carcinoma, we will be discussing with oncology the utility of an endoscopic ultrasound for staging purposes first and the obligate CT abdomen and pelvis. Job ID: [id number] DocumentID: [id number] Dictated Date: 11/21/2019 12:33:27 Political Science Professor Date: 11/21/2019 17:08:50 Dictated By: JENNA SÁNCHEZ MD MTDD
== END 2019-11-21 10:15 | disposition home or self-care (01) ==
LOC: ENDO 06:45
PROVIDERS: ATTEND Internal Medicine
DX: Z12.11 Encounter for screening for malignant neoplasm of colon (principal); C20 Malignant neoplasm of rectum; D12.2 Benign neoplasm of ascending colon; D12.8 Benign neoplasm of rectum; K57.30 Diverticulosis of large intestine without perforation or abscess without bleeding; K29.70 Gastritis, unspecified, without bleeding; K29.80 Duodenitis without bleeding; J45.909 Unspecified asthma, uncomplicated; G25.81 Restless legs syndrome; E66.9 Obesity, unspecified; Z86.711 Personal history of pulmonary embolism; Z86.718 Personal history of other venous thrombosis and embolism; Z79.01 Long term (current) use of anticoagulants

== ENCOUNTER → 2019-12-02 | Outpatient (CLI) | payer MEDICARE, OTHER ==
[~2019-12-02] MED LIST changes: +HOLD METFORMIN - RECEIVED CONTRAST 20 ML VIAL IV SCH; +IOHEXOL 350 MG/ML 100 ML (OMNIPAQUE 350) VIAL IV ONE; +NS 100 ML (IVPB) BAG IV ONE
--- NOTE | 2019-12-02 09:54 | Diagnostic Imaging Report ---
PROCEDURE: CT chest and abdomen with contrast. TECHNIQUE: Multiple contiguous axial images were obtained through the chest and abdomen after the administration of intravenous contrast. Auto Exposure Controls were utilized during the CT exam to meet ALARA standards for radiation dose reduction. INDICATION: Recent diagnosis of anal cancer. Dysphagia. COMPARISON: CT chest on 07/04/2019. FINDINGS: CT CHEST: The heart size is within normal limits. No pericardial effusion is present. There is calcified aortic and coronary atherosclerotic plaque without aneurysm. There is no mediastinal, hilar, or axillary lymphadenopathy. The lungs demonstrate no pulmonary nodules or masses. There are no focal areas of consolidation. Minimal dependent atelectasis is seen in the lungs bilaterally. No pneumothoraces are present. No central endobronchial obstructing lesions are identified. There are no pleural effusions. The osseous structures demonstrate degenerative changes without focal lytic or blastic lesions. Old left-sided rib fractures are noted. CT ABDOMEN: An exophytic cortical cyst is noted in the superior pole of the left kidney. No suspicious renal masses are seen. No evidence of hydronephrosis or obstructing calculi. There is hepatic steatosis. A small hypoattenuating focus is seen in the left hepatic lobe measuring 1.7 cm, likely a cyst. No suspicious hepatic lesions are seen. The portal vein is patent. The spleen, pancreas, and adrenal glands have a normal appearance. The gallbladder is surgically absent. There is no pathologically enlarged mesenteric or retroperitoneal adenopathy. The included bowel loops are nondistended. There is no free fluid or free air. Prior kyphoplasty changes are visualized at the L2 and L3 levels. No acute fracture or dislocation is seen in the included osseous structures. IMPRESSION: 1. No acute abnormalities are visualized in the chest. No focal consolidation or pulmonary mass. 2. Hepatic steatosis. No suspicious hepatic lesions. No ascites. 3. No pathologically enlarged lymphadenopathy in the chest or abdomen. No findings to suggest metastatic disease. Dictated by: Dictated on workstation # [id number]
== END ==
LOC: RAD 09:06
PROVIDERS: ATTEND Internal Medicine Hematology & Oncology
DX: C21.0 Malignant neoplasm of anus, unspecified (principal); K76.0 Fatty (change of) liver, not elsewhere classified; R13.10 Dysphagia, unspecified; Z90.49 Acquired absence of other specified parts of digestive tract
CPT/HCPCS: 71260; 74160

== ENCOUNTER → 2019-12-03 | Outpatient (CLI) | payer MEDICARE, OTHER ==
--- NOTE | 2019-12-03 08:37 | Diagnostic Imaging Report ---
EXAMINATION: CT Pelvis with intravenous contrast. TECHNIQUE: Multiple contiguous axial images were obtained through the pelvis after the uneventful administration of intravenous contrast. All CT scans use one or more of the following dose optimizing techniques: automated exposure control, MA and/or KvP adjustment based on a patient size and exam type, or iterative reconstruction. HISTORY: ANAL CA. COMPARISON: None available. FINDINGS: No CT correlate is seen for the history of anal cancer. Soft tissue contrast is quite poor on CT and reportedly the patient cannot receive MRI; however, no distinct measurable tumor can be seen on CT as the tumor is of the same attenuation as the surrounding soft tissues. It is difficult to separate the fascial planes of the external sphincter from the distal rectum and anus. Evaluation of local invasion is also not possible. No lymphadenopathy is seen in the pelvis. The prostate gland has a normal CT appearance with the exception of some calcifications within the transition zone. Visualized portions of the kidneys are normal. There is no hydronephrosis. Urinary bladder is normal. Visualized bowel is normal in caliber without obstruction or inflammation. No free fluid or air. No pelvic lymphadenopathy. Aorta is normal in caliber without aneurysm. There are no suspicious osseus lesions. IMPRESSION: 1. The known anal cancer cannot be visualized on CT due to intrinsic low contrast between the tumor and surrounding tissues. Evaluation for local extent is not possible. 2. No lymphadenopathy or metastatic disease identified in the pelvis. Dictated by: Dictated on workstation # [id number]
== END ==
LOC: RAD 07:23
PROVIDERS: ATTEND Nurse Practitioner Adult Health
DX: C21.1 Malignant neoplasm of anal canal (principal)
CPT/HCPCS: 72193

== ENCOUNTER → 2019-12-03 | Outpatient (CLI) | payer MEDICARE, OTHER ==
[~2019-12-03] MED LIST changes: -HOLD METFORMIN - RECEIVED CONTRAST 20 ML VIAL IV SCH; -IOHEXOL 350 MG/ML 100 ML (OMNIPAQUE 350) VIAL IV ONE; -NS 100 ML (IVPB) BAG IV ONE
== END | disposition home or self-care (01) ==
LOC: PREOP 05:28
PROVIDERS: ATTEND Surgery
DX: Z01.818 Encounter for other preprocedural examination (principal)

== ENCOUNTER 2019-12-04 07:10 | Day surgery (SDC) | payer MEDICARE, OTHER ==
[2019-12-04] VITALS (7 sets, daily range): BP systolic 104–143; BP diastolic 60–80
[~2019-12-04] VITALS: Ht 172 cm; Wt 125.5 kg
[2019-12-04] MEDS ORDERED: HEParin (CENTRAL IV FLUSH) 500 UNIT/5 ML SYR ONE (07:12)
[2019-12-04] MEDS ORDERED: 0.9% SODIUM CHLORIDE PF INJ 20 ML VIAL ONE (07:13)
[2019-12-04] MEDS ORDERED: BUP/EPI 0.5% 1:200,000 (SENSORCAINE) 30 ML VIAL ONE (07:13)
[2019-12-04] MEDS ORDERED: ceFAZolin 2 GM IV Premixed 50 ML IV ONE (07:30)
[2019-12-04] MEDS ORDERED: KETAMINE/NaCl 50 MG/5 ML SYRINGE (ED ONLY) ONE (08:09)
--- NOTE | 2019-12-04 08:14 | Progress Note-Pre Operative ---
Pre-Operative Progress Note H&P Reviewed The H&P was reviewed, patient examined and no changes noted. Time Seen by Provider: 08:11 Date H&P Reviewed: Dec 04, 2019 Time H&P Reviewed: 08:12 Pre-Operative Diagnosis: Anal CA, Venous Insufficiency ZEKE CARTWRIGHT DO Dec 04, 2019 08:14
[2019-12-04] MEDS ORDERED: proPOfol 200 MG/20 ML (DIPRIVAN) VIAL IV ONE (08:43)
[2019-12-04] MEDS ORDERED: ONDANSETRON 4 MG/2 ML (SDV) Z0FRAN IVP PRN (09:15)
[2019-12-04] MEDS ORDERED: morphine INJ 10 MG/ML 1ML (SYR OR VIAL) IVP ONE (09:15)
--- NOTE | 2019-12-04 09:20 | Progress Note-Post Operative ---
Post-Operative Progess Note Surgeon (s)/Lithograph Press Feeder (s) Surgeon ZEKE CARTWRIGHT DO Lithograph Press Feeder: none Pre-Operative Diagnosis Anal CA, Venous Insufficiency Post-Operative Diagnosis same Procedure & Operative Findings Date of Procedure 12/04/19 Procedure Performed/Findings PROCEDURE: [Right] subclavian port placement. COMPLICATIONS: None. INDICATIONS: The patient is a 84 year old male []. Patient understands the risks and benefits of port placement and wished to proceed with the procedure. Consent was signed on the chart. PROCEDURE: The patient was taken to the operating suite, was prepped and draped in the sterile fashion. A surgical pause was performed. Pt was placed slightly trendelenberg and then anesthetic was infiltrated towards the clavicle and the right anterior chest where the port would be placed. The subclavian vein was accessed. Dark nonpulsatile blood was withdrawn. The wire was inserted. Fluoroscopy assured proper placement. The needle was removed. The wire was then secured. Local anesthetic was used. A [#11] blade scalpel was used to make a stab incision at the guidewire insertion site and then over the [right anterior] chest for pocket creation. Cautery was used to dissect down to the pectoral fascia. A pocket was created with blunt dissection. The dilator sheath was then advanced over the wire under fluoroscopy and the dilator and wire were removed. The Groshong catheter was inserted through the sheath and the sheath was then removed. The Groshong wire was removed. The catheter was then tunneled to the right chest pocket. Fluoroscopy was used to cut to length and this was then attached to the port which was then placed within the pocket. The port was then accessed without difficulty. It was then flushed with saline and then heparin. The port was sutured down to the pectoralis fascia with 3-0 Prolene. The subcutaneous tissues were then reapproximated using 3-0 Vicryl. The areas were then washed and dried. Skin Affix was placed over incision. The insertion point of the guidewire also had Skin Affix placed over the incision. The patient tolerated the procedure well without complication and was taken to recovery room in stable condition. Anesthesia Type IV sedation by PERSONAL INJURY LEGAL ASSISTANT Estimated Blood Loss Estimated blood loss (mL): less than 5ml Specimens/Packing Specimens Removed none ZEKE CARTWRIGHT DO Dec 04, 2019 09:20
--- NOTE | 2019-12-04 09:43 | Anesthesia-General Post-Op ---
MAC Patient Condition Mental Status/LOC: Same as Preop Cardiovascular: Satisfactory Nausea/Vomiting: Absent Respiratory: Satisfactory Pain: Controlled Complications: Absent Post Op Complications Complications None Follow Up Care/Instructions Patient Instructions None needed. Anesthesiology Discharge Order Discharge Order Patient is doing well, no complaints, stable vital signs, no apparent adverse anesthesia problems. No complications reported per nursing. GARFIELD ROCHE CRNA Dec 04, 2019 09:43
--- NOTE | 2019-12-04 10:03 | Discharge Inst-Surgical ---
Discharge Inst-Surgical Depart Medication/Instructions New, Converted or Re-Newed RX: Other (Take home meds) Patient Instructions Follow up Appt: Make appointment for 2 weeks. [phone] Instructions: No lifting greater than 20 pounds. No strenuous activity. May shower in 24 hours, no tub bath or soaking. Use incentive spirometer at home as directed. No Smoking Skin/Wound Care: May remove bandages in am. You need to leave the Dermabond on incision it will fall off on it's own. Symptoms to Report: Appetite Changes, Extremity Discoloration, Numbness/Tingling, Swelling Increased, Bleeding Excessive, Eyesight Changes, Pain Increased, Urine Color Change, Constipation(Persistent), Fever over 101 degree F, Pain/Pressure in chest, Urinating Difficulty, Cough Up/Vomit Blood, Heart Beat Irreg/Pounding, Pain/Pressure in jaw, Cramps in feet or legs, Lightheadedness, Pain/Pressure in shoulder, Diarrhea(Persistent), Memory Changes Suddenly, Questions/Concerns, Weight gain consecutive days, Dizziness/Fainting, Nausea/Vomiting, Shortness of Breath, Weight gain over 2 pounds If questions or concerns contact your physician Or seek help at emergency department. Activity Activity as Tolerated: Yes Activity Instructions: Avoid Stress to Incision Driving Instructions: No Driving/Refer to Dr. Benitez Discharge Diet: No Restrictions Diet After 24 Hours: Clear Liquid if Nauseous If Any Problems/Questions/Issu: Contact Your Physician, Go to Emergency Room Skin/Wound Care Infection Signs and Symptoms: Increased Redness, Foul Odor of Wound, Increased Drainage, Skin Itchy or Has a Rash, Increased Swelling, Temperature Above 101 F Bathing Instructions: Shower Stitches/[place]/Dermabond Dis: Dermabond Ice Pack: Ice On and Off Site ZEKE CARTWRIGHT DO Dec 04, 2019 10:03
--- NOTE | 2019-12-04 13:47 | Diagnostic Imaging Report ---
INDICATION: Fluoroscopy for port placement. Fluoroscopy was provided in the OR during right chest wall port placement. 4 seconds of fluoroscopic time was utilized. A single image was obtained demonstrating a right chest wall port with tip overlying the SVC. IMPRESSION: Fluoroscopy for port placement. Dictated by: Dictated on workstation # [id number]
== END 2019-12-04 11:10 | disposition home or self-care (01) ==
LOC: SDC 07:10
PROVIDERS: ATTEND Surgery
DX: C21.1 Malignant neoplasm of anal canal (principal); I87.2 Venous insufficiency (chronic) (peripheral); Z11.2 Encounter for screening for other bacterial diseases; J44.9 Chronic obstructive pulmonary disease, unspecified; K21.9 Gastro-esophageal reflux disease without esophagitis; G47.33 Obstructive sleep apnea (adult) (pediatric); Z79.899 Other long term (current) drug therapy; Z88.8 Allergy status to other drugs, medicaments and biological substances; Z79.01 Long term (current) use of anticoagulants; F41.9 Anxiety disorder, unspecified; F32.9 Major depressive disorder, single episode, unspecified; M47.816 Spondylosis without myelopathy or radiculopathy, lumbar region; R09.02 Hypoxemia; I10 Essential (primary) hypertension; E78.2 Mixed hyperlipidemia; Z86.718 Personal history of other venous thrombosis and embolism; I65.23 Occlusion and stenosis of bilateral carotid arteries; Z87.891 Personal history of nicotine dependence; Z86.73 Personal history of transient ischemic attack (TIA), and cerebral infarction without residual deficits; E66.9 Obesity, unspecified; Z68.41 Body mass index [BMI] 40.0-44.9, adult
CPT/HCPCS: 82962; 87081

== ENCOUNTER → 2019-12-09 | Outpatient (CLI) | payer MEDICARE, OTHER ==
--- NOTE | 2019-12-09 13:30 | Diagnostic Imaging Report ---
INDICATION: Anal carcinoma, initial staging. Serum blood glucose level at time of injection was 95 mg/dL. The patient was administered 15.1 mCi F-18 FDG intravenously and PET imaging was performed from the top of skull to mid thighs. Noncontrast CT was also performed for attenuation correction and anatomic correlation. No prior PET studies are available for comparison. Comparison is made with prior CT from 12/02/2019 and 12/03/2019. There is normal symmetric activity throughout the brain. The soft tissues of the neck are unremarkable. No hypermetabolic mediastinal or hilar lymphadenopathy is detected. No hypermetabolic foci within the pulmonary parenchyma is identified. There is physiologic activity within the gastrointestinal and genitourinary tracts. No suspicious hypermetabolism in the abdomen or pelvis is identified. While there is some minimal uptake in the region of the anus, this could be owing to patient's known neoplasm versus physiologic activity. No hypermetabolic lymphadenopathy in the pelvis is identified. IMPRESSION: Essentially unremarkable PET/CT study, as described. Dictated by: Dictated on workstation # [id number]
== END ==
LOC: RAD 10:34
PROVIDERS: ATTEND Nurse Practitioner Adult Health
DX: C21.1 Malignant neoplasm of anal canal (principal)

== ENCOUNTER → 2020-02-23 | Outpatient (RCR) | payer MEDICARE, OTHER ==
[2019-12-01 11:33] LABS: BASOPHILS # (AUTO) 0.1 10^3/uL (0.0-0.1); BASOPHILS % (AUTO) 1 % (0-10); EOSINOPHILS # (AUTO) 0.4 10^3/uL (0.0-0.3); EOSINOPHILS % (AUTO) 4 % (0-10); HEMATOCRIT 44 % (40-54); HEMOGLOBIN 14.3 G/DL (13.3-17.7); LYMPHOCYTES # (AUTO) 2.5 X 10^3 (1.0-4.0); LYMPHOCYTES % (AUTO) 29 % (12-44); MEAN CORPUSCULAR HEMOGLOBIN 30 PG (25-34); MEAN CORPUSCULAR HGB CONC 32 G/DL (32-36); MEAN CORPUSCULAR VOLUME 93 FL (80-99); MEAN PLATELET VOLUME 9.8 FL (7.4-10.4); MONOCYTES # (AUTO) 1.3 X 10^3 (0.0-1.0); MONOCYTES % (AUTO) 15 % (0-12); NEUTROPHILS # (AUTO) 4.3 X 10^3 (1.8-7.8); NEUTROPHILS % (AUTO) 51 % (42-75); PLATELET COUNT 246 10^3/uL (130-400); RED CELL DISTRIBUTION WIDTH 13.3 % (10.0-14.5); WHITE BLOOD COUNT 8.5 10^3/uL (4.3-11.0)
[2019-12-01 11:58] LABS: BILIRUBIN,TOTAL 0.4 MG/DL (0.1-1.0); CALCIUM 9.1 MG/DL (8.5-10.1); CREATININE SERUM 1.38 MG/DL (0.60-1.30); TOTAL PROTEIN 6.9 GM/DL (6.4-8.2)
[2019-12-22 13:53] LABS: BASOPHILS # (AUTO) 0.1 10^3/uL (0.0-0.1); BASOPHILS % (AUTO) 1 % (0-10); EOSINOPHILS # (AUTO) 0.5 10^3/uL (0.0-0.3); EOSINOPHILS % (AUTO) 6 % (0-10); HEMATOCRIT 42 % (40-54); HEMOGLOBIN 13.8 G/DL (13.3-17.7); LYMPHOCYTES # (AUTO) 1.4 X 10^3 (1.0-4.0); LYMPHOCYTES % (AUTO) 19 % (12-44); MEAN CORPUSCULAR HEMOGLOBIN 30 PG (25-34); MEAN CORPUSCULAR HGB CONC 33 G/DL (32-36); MEAN CORPUSCULAR VOLUME 92 FL (80-99); MEAN PLATELET VOLUME 9.5 FL (7.4-10.4); MONOCYTES # (AUTO) 0.3 X 10^3 (0.0-1.0); MONOCYTES % (AUTO) 4 % (0-12); NEUTROPHILS # (AUTO) 5.4 X 10^3 (1.8-7.8); NEUTROPHILS % (AUTO) 70 % (42-75); PLATELET COUNT 182 10^3/uL (130-400); RED CELL DISTRIBUTION WIDTH 13.1 % (10.0-14.5); WHITE BLOOD COUNT 7.6 10^3/uL (4.3-11.0)
[2019-12-22 14:04] LABS: POTASSIUM 3.9 MMOL/L (3.6-5.0)
[2019-12-22 14:05] LABS: CALCIUM 8.9 MG/DL (8.5-10.1)
[2019-12-22 14:10] LABS: CREATININE SERUM 1.27 MG/DL (0.60-1.30)
[2020-01-07 13:45] LABS: BASOPHILS % (AUTO) 0 % (0-10); EOSINOPHILS # (AUTO) 0.1 10^3/uL (0.0-0.3); EOSINOPHILS % (AUTO) 1 % (0-10); HEMATOCRIT 38 % (40-54); HEMOGLOBIN 12.1 G/DL (13.3-17.7); LYMPHOCYTES # (AUTO) 0.5 X 10^3 (1.0-4.0); LYMPHOCYTES % (AUTO) 7 % (12-44); MEAN CORPUSCULAR HEMOGLOBIN 31 PG (25-34); MEAN CORPUSCULAR HGB CONC 32 G/DL (32-36); MEAN CORPUSCULAR VOLUME 96 FL (80-99); MEAN PLATELET VOLUME 9.4 FL (7.4-10.4); MONOCYTES # (AUTO) 1.5 X 10^3 (0.0-1.0); MONOCYTES % (AUTO) 21 % (0-12); NEUTROPHILS # (AUTO) 5.1 X 10^3 (1.8-7.8); NEUTROPHILS % (AUTO) 70 % (42-75); PLATELET COUNT 132 10^3/uL (130-400); RED CELL DISTRIBUTION WIDTH 14.1 % (10.0-14.5); WHITE BLOOD COUNT 7.3 10^3/uL (4.3-11.0)
[2020-01-07 14:07] LABS: ALBUMIN 3.6 GM/DL (3.2-4.5); BILIRUBIN,TOTAL 0.4 MG/DL (0.1-1.0); CALCIUM 8.9 MG/DL (8.5-10.1); CREATININE SERUM 1.39 MG/DL (0.60-1.30); POTASSIUM 3.7 MMOL/L (3.6-5.0); TOTAL PROTEIN 6.8 GM/DL (6.4-8.2)
[2020-01-12 13:28] LABS: BASOPHILS % (AUTO) 0 % (0-10); EOSINOPHILS # (AUTO) 0.1 10^3/uL (0.0-0.3); EOSINOPHILS % (AUTO) 1 % (0-10); HEMATOCRIT 37 % (40-54); HEMOGLOBIN 11.8 G/DL (13.3-17.7); LYMPHOCYTES # (AUTO) 0.5 X 10^3 (1.0-4.0); LYMPHOCYTES % (AUTO) 6 % (12-44); MEAN CORPUSCULAR HEMOGLOBIN 31 PG (25-34); MEAN CORPUSCULAR HGB CONC 32 G/DL (32-36); MEAN CORPUSCULAR VOLUME 95 FL (80-99); MEAN PLATELET VOLUME 9.9 FL (7.4-10.4); MONOCYTES # (AUTO) 1.4 X 10^3 (0.0-1.0); MONOCYTES % (AUTO) 15 % (0-12); NEUTROPHILS # (AUTO) 7.7 X 10^3 (1.8-7.8); NEUTROPHILS % (AUTO) 79 % (42-75); PLATELET COUNT 169 10^3/uL (130-400); RED CELL DISTRIBUTION WIDTH 14.3 % (10.0-14.5); WHITE BLOOD COUNT 9.9 10^3/uL (4.3-11.0)
[2020-01-12 13:47] LABS: ALBUMIN 3.5 GM/DL (3.2-4.5); BILIRUBIN,TOTAL 0.4 MG/DL (0.1-1.0); CALCIUM 8.6 MG/DL (8.5-10.1); CREATININE SERUM 1.37 MG/DL (0.60-1.30); POTASSIUM 4.1 MMOL/L (3.6-5.0); TOTAL PROTEIN 6.6 GM/DL (6.4-8.2)
[2020-01-19 11:20] LABS: BASOPHILS % (AUTO) 0 % (0-10); EOSINOPHILS # (AUTO) 0.3 10^3/uL (0.0-0.3); EOSINOPHILS % (AUTO) 6 % (0-10); HEMATOCRIT 37 % (40-54); HEMOGLOBIN 11.9 G/DL (13.3-17.7); LYMPHOCYTES # (AUTO) 0.2 X 10^3 (1.0-4.0); LYMPHOCYTES % (AUTO) 4 % (12-44); MEAN CORPUSCULAR HEMOGLOBIN 31 PG (25-34); MEAN CORPUSCULAR HGB CONC 33 G/DL (32-36); MEAN CORPUSCULAR VOLUME 96 FL (80-99); MEAN PLATELET VOLUME 9.4 FL (7.4-10.4); MONOCYTES # (AUTO) 0.2 X 10^3 (0.0-1.0); MONOCYTES % (AUTO) 4 % (0-12); NEUTROPHILS # (AUTO) 4.5 X 10^3 (1.8-7.8); NEUTROPHILS % (AUTO) 86 % (42-75); PLATELET COUNT 169 10^3/uL (130-400); RED CELL DISTRIBUTION WIDTH 14.5 % (10.0-14.5); WHITE BLOOD COUNT 5.2 10^3/uL (4.3-11.0)
[2020-01-19 11:45] LABS: CALCIUM 8.7 MG/DL (8.5-10.1); CREATININE SERUM 1.35 MG/DL (0.60-1.30); POTASSIUM 4.1 MMOL/L (3.6-5.0)
[2020-01-27 11:20] LABS: BASOPHILS % (AUTO) 0 % (0-10); EOSINOPHILS # (AUTO) 0.1 10^3/uL (0.0-0.3); EOSINOPHILS % (AUTO) 3 % (0-10); HEMATOCRIT 33 % (40-54); HEMOGLOBIN 10.8 G/DL (13.3-17.7); LYMPHOCYTES # (AUTO) 0.4 X 10^3 (1.0-4.0); LYMPHOCYTES % (AUTO) 10 % (12-44); MEAN CORPUSCULAR HEMOGLOBIN 31 PG (25-34); MEAN CORPUSCULAR HGB CONC 32 G/DL (32-36); MEAN CORPUSCULAR VOLUME 96 FL (80-99); MEAN PLATELET VOLUME 10.2 FL (7.4-10.4); MONOCYTES # (AUTO) 1.4 X 10^3 (0.0-1.0); MONOCYTES % (AUTO) 36 % (0-12); NEUTROPHILS % (AUTO) 52 % (42-75); PLATELET COUNT 147 10^3/uL (130-400); RED CELL DISTRIBUTION WIDTH 15.1 % (10.0-14.5); WHITE BLOOD COUNT 3.8 10^3/uL (4.3-11.0)
[2020-01-27 11:45] LABS: ALBUMIN 3.1 GM/DL (3.2-4.5); BILIRUBIN,TOTAL 0.7 MG/DL (0.1-1.0); CALCIUM 8.8 MG/DL (8.5-10.1); CREATININE SERUM 1.41 MG/DL (0.60-1.30); MAGNESIUM 2.3 MG/DL (1.6-2.4); POTASSIUM 3.5 MMOL/L (3.6-5.0); TOTAL PROTEIN 6.4 GM/DL (6.4-8.2)
[2020-02-04 10:14] LABS: BASOPHILS % (AUTO) 1 % (0-10); EOSINOPHILS % (AUTO) 1 % (0-10); HEMATOCRIT 35 % (40-54); LYMPHOCYTES # (AUTO) 0.7 X 10^3 (1.0-4.0); LYMPHOCYTES % (AUTO) 20 % (12-44); MEAN CORPUSCULAR HGB CONC 32 G/DL (32-36); MEAN CORPUSCULAR VOLUME 96 FL (80-99); MEAN PLATELET VOLUME 9.8 FL (7.4-10.4); MONOCYTES # (AUTO) 0.8 X 10^3 (0.0-1.0); MONOCYTES % (AUTO) 23 % (0-12); NEUTROPHILS # (AUTO) 1.9 X 10^3 (1.8-7.8); NEUTROPHILS % (AUTO) 55 % (42-75); PLATELET COUNT 160 10^3/uL (130-400); RED CELL DISTRIBUTION WIDTH 15.5 % (10.0-14.5); WHITE BLOOD COUNT 3.4 10^3/uL (4.3-11.0)
[2020-02-04 10:15] LABS: MEAN CORPUSCULAR HEMOGLOBIN 30 PG (25-34)
[2020-02-04 10:38] LABS: ALBUMIN 3.1 GM/DL (3.2-4.5); BILIRUBIN,TOTAL 0.6 MG/DL (0.1-1.0); CALCIUM 8.4 MG/DL (8.5-10.1); CREATININE SERUM 1.19 MG/DL (0.60-1.30); POTASSIUM 3.4 MMOL/L (3.6-5.0); TOTAL PROTEIN 6.4 GM/DL (6.4-8.2)
[2020-02-10 11:34] LABS: BILIRUBIN,URINE NEGATIVE (NEGATIVE); CLARITY,URINE CLEAR; COLOR,URINE YELLOW; GLUCOSE, URINE (UA) NEGATIVE (NEGATIVE); KETONES,URINE NEGATIVE (NEGATIVE); LEUKOCYTE ESTERASE ,URINE NEGATIVE (NEGATIVE); NITRITE,URINE NEGATIVE (NEGATIVE); PH,URINE 5.5 (5-9); PROTEIN,URINE TRACE (NEGATIVE)
[2020-02-10 11:44] LABS: AMORPHOUS SEDIMENT,UR MOD AMOR URATES /LPF; BACTERIA,URINE NEGATIVE /HPF
[2020-02-16 09:05] LABS: BASOPHILS % (AUTO) 1 % (0-10); EOSINOPHILS # (AUTO) 0.2 10^3/uL (0.0-0.3); EOSINOPHILS % (AUTO) 5 % (0-10); HEMATOCRIT 34 % (40-54); HEMOGLOBIN 10.7 G/DL (13.3-17.7); LYMPHOCYTES # (AUTO) 0.7 X 10^3 (1.0-4.0); LYMPHOCYTES % (AUTO) 18 % (12-44); MEAN CORPUSCULAR HEMOGLOBIN 31 PG (25-34); MEAN CORPUSCULAR HGB CONC 32 G/DL (32-36); MEAN CORPUSCULAR VOLUME 96 FL (80-99); MEAN PLATELET VOLUME 13.6 FL (7.4-10.4); MONOCYTES % (AUTO) 25 % (0-12); NEUTROPHILS % (AUTO) 52 % (42-75); RED CELL DISTRIBUTION WIDTH 15.1 % (10.0-14.5); WHITE BLOOD COUNT 3.9 10^3/uL (4.3-11.0)
[2020-02-16 09:15] LABS: PLATELET COUNT 10 10^3/uL (130-400)
[2020-02-16 09:31] LABS: ALANINE AMINOTRANSFERASE 28 U/L (0-55); ALBUMIN 3.2 GM/DL (3.2-4.5); ALKALINE PHOSPHATASE 78 U/L (40-136); BILIRUBIN,TOTAL 0.6 MG/DL (0.1-1.0); BUN/CREATININE RATIO 7; CALCIUM 8.9 MG/DL (8.5-10.1); CARBON DIOXIDE 24 MMOL/L (21-32); CHLORIDE 109 MMOL/L (98-107); CREATININE SERUM 1.15 MG/DL (0.60-1.30); GFR ESTIMATED > 60; GLUCOSE 104 MG/DL (70-105); MAGNESIUM 2.1 MG/DL (1.6-2.4); POTASSIUM 3.5 MMOL/L (3.6-5.0); SODIUM 141 MMOL/L (135-145); TOTAL PROTEIN 5.6 GM/DL (6.4-8.2)
[2020-02-16 09:49] LABS: BASOPHILS % (AUTO) 0 % (0-10); EOSINOPHILS # (AUTO) 0.3 10^3/uL (0.0-0.3); EOSINOPHILS % (AUTO) 7 % (0-10); HEMATOCRIT 33 % (40-54); HEMOGLOBIN 10.4 G/DL (13.3-17.7); LYMPHOCYTES # (AUTO) 0.6 X 10^3 (1.0-4.0); LYMPHOCYTES % (AUTO) 16 % (12-44); MEAN CORPUSCULAR HEMOGLOBIN 31 PG (25-34); MEAN CORPUSCULAR HGB CONC 32 G/DL (32-36); MEAN CORPUSCULAR VOLUME 96 FL (80-99); MONOCYTES # (AUTO) 0.8 X 10^3 (0.0-1.0); MONOCYTES % (AUTO) 23 % (0-12); NEUTROPHILS # (AUTO) 1.9 X 10^3 (1.8-7.8); NEUTROPHILS % (AUTO) 53 % (42-75); RED CELL DISTRIBUTION WIDTH 15.1 % (10.0-14.5); WHITE BLOOD COUNT 3.5 10^3/uL (4.3-11.0)
[2020-02-16 09:53] LABS: PLATELET COUNT 11 10^3/uL (130-400)
[2020-02-19 12:49] LABS: BASOPHILS % (AUTO) 0 % (0-10); EOSINOPHILS % (AUTO) 1 % (0-10); HEMATOCRIT 34 % (40-54); HEMOGLOBIN 10.9 G/DL (13.3-17.7); LYMPHOCYTES # (AUTO) 0.4 X 10^3 (1.0-4.0); LYMPHOCYTES % (AUTO) 9 % (12-44); MEAN CORPUSCULAR HEMOGLOBIN 31 PG (25-34); MEAN CORPUSCULAR HGB CONC 32 G/DL (32-36); MEAN CORPUSCULAR VOLUME 97 FL (80-99); MONOCYTES # (AUTO) 0.2 X 10^3 (0.0-1.0); MONOCYTES % (AUTO) 5 % (0-12); NEUTROPHILS # (AUTO) 3.4 X 10^3 (1.8-7.8); NEUTROPHILS % (AUTO) 85 % (42-75); RED CELL DISTRIBUTION WIDTH 15.4 % (10.0-14.5)
[2020-02-19 12:53] LABS: PLATELET COUNT 13 10^3/uL (130-400)
[~2020-02-23] VITALS: Ht 172.7 cm; Wt 125.6 kg
[~2020-02-23] MED LIST changes: +FLUOROURACIL IV SCH; -GARL500C11 PO; +GARL500C2 PO; +MITOMYCIN INJECTION 20 MG in NS (IVPB) CANCER CENTER 50 ML IV SCH; +NS IV 1000 ML (CANCER CTR) IV SCH; +NS IV SCH; +ONDANSETRON MDV (CANCER CENTER 16 MG, DEXAMETHASONE INJECTION 10 MG in NS (IVPB) CANCER... IV SCH
[2020-02-23 12:46] LABS: BASOPHILS % (AUTO) 0 % (0-10); EOSINOPHILS # (AUTO) 0.1 10^3/uL (0.0-0.3); EOSINOPHILS % (AUTO) 1 % (0-10); HEMATOCRIT 39 % (40-54); HEMOGLOBIN 12.6 G/DL (13.3-17.7); LYMPHOCYTES # (AUTO) 0.6 X 10^3 (1.0-4.0); LYMPHOCYTES % (AUTO) 7 % (12-44); MEAN CORPUSCULAR HEMOGLOBIN 31 PG (25-34); MEAN CORPUSCULAR HGB CONC 32 G/DL (32-36); MEAN CORPUSCULAR VOLUME 97 FL (80-99); MONOCYTES # (AUTO) 0.5 X 10^3 (0.0-1.0); MONOCYTES % (AUTO) 6 % (0-12); NEUTROPHILS # (AUTO) 6.8 X 10^3 (1.8-7.8); NEUTROPHILS % (AUTO) 86 % (42-75); PLATELET COUNT 44 10^3/uL (130-400); RED CELL DISTRIBUTION WIDTH 15.6 % (10.0-14.5)
[2020-02-23 13:13] LABS: CALCIUM 9.3 MG/DL (8.5-10.1); CREATININE SERUM 1.28 MG/DL (0.60-1.30); POTASSIUM 4.5 MMOL/L (3.6-5.0)
== END | disposition home or self-care (01) ==
LOC: ONC 11-25 10:45
PROVIDERS: ATTEND Internal Medicine Hematology & Oncology
DX: Z51.0 Encounter for antineoplastic radiation therapy (principal); C21.1 Malignant neoplasm of anal canal; E78.2 Mixed hyperlipidemia; I10 Essential (primary) hypertension; R07.9 Chest pain, unspecified; Z90.49 Acquired absence of other specified parts of digestive tract; Z98.890 Other specified postprocedural states
CPT/HCPCS: 36591; 77300; 77301; 77334; 77336; 77338; 77386; 77470; 80048; 80053; 81000; 83735; 85025; 87070; 87077; 87186; 87205; 87324; 87449; 96360; 96361; 96375; 96409; 96416; 99204; 99212; 99213; 99214; J9290

== ENCOUNTER → 2020-04-30 | Outpatient (CLI) | payer MEDICARE, OTHER ==
[~2020-04-30] MED LIST changes: +CATHETER FLUSH 10 ML SYR IV PRN; -FLUOROURACIL IV SCH; -MITOMYCIN INJECTION 20 MG in NS (IVPB) CANCER CENTER 50 ML IV SCH; -NS IV 1000 ML (CANCER CTR) IV SCH; -NS IV SCH; -ONDANSETRON MDV (CANCER CENTER 16 MG, DEXAMETHASONE INJECTION 10 MG in NS (IVPB) CANCER... IV SCH
--- NOTE | 2020-04-30 14:28 | Diagnostic Imaging Report ---
INDICATION: Right hip pain. Patient was administered 26.7 mCi technetium 99m MDP and dynamic blood flow, blood pool and delayed imaging over the pelvis and proximal femora was performed. There is some symmetric perfusion bilaterally. Blood pool images are unremarkable. Delayed images are without an area of focal tracer accumulation. There is physiologic activity in the urinary bladder. Bilateral hips are unremarkable. IMPRESSION: Unremarkable 3 phase bone scan of the pelvis and bilateral hips. Dictated by: Dictated on workstation # [id number]
== END ==
LOC: CARD 10:23
PROVIDERS: ATTEND Internal Medicine Hematology & Oncology
DX: C21.1 Malignant neoplasm of anal canal (principal); M25.551 Pain in right hip; Z92.241 Personal history of systemic steroid therapy
CPT/HCPCS: 78315; A9503

== ENCOUNTER 2020-05-24 13:13 | Outpatient (RCR) | payer MEDICARE, OTHER ==
[2020-02-26 09:54] LABS: BASOPHILS % (AUTO) 0 % (0-10); EOSINOPHILS # (AUTO) 0.1 10^3/uL (0.0-0.3); EOSINOPHILS % (AUTO) 1 % (0-10); HEMATOCRIT 39 % (40-54); HEMOGLOBIN 12.6 G/DL (13.3-17.7); LYMPHOCYTES # (AUTO) 0.9 X 10^3 (1.0-4.0); LYMPHOCYTES % (AUTO) 13 % (12-44); MEAN CORPUSCULAR HEMOGLOBIN 31 PG (25-34); MEAN CORPUSCULAR HGB CONC 32 G/DL (32-36); MEAN CORPUSCULAR VOLUME 97 FL (80-99); MONOCYTES # (AUTO) 1.1 X 10^3 (0.0-1.0); MONOCYTES % (AUTO) 15 % (0-12); NEUTROPHILS # (AUTO) 5.2 X 10^3 (1.8-7.8); NEUTROPHILS % (AUTO) 71 % (42-75); PLATELET COUNT 50 10^3/uL (130-400); WHITE BLOOD COUNT 7.3 10^3/uL (4.3-11.0)
[2020-02-26 10:09] LABS: CALCIUM 9.1 MG/DL (8.5-10.1); CREATININE SERUM 1.22 MG/DL (0.60-1.30); POTASSIUM 3.9 MMOL/L (3.6-5.0)
[2020-03-01 15:48] LABS: BASOPHILS % (AUTO) 0 % (0-10); EOSINOPHILS % (AUTO) 0 % (0-10); HEMATOCRIT 43 % (40-54); HEMOGLOBIN 13.7 G/DL (13.3-17.7); LYMPHOCYTES # (AUTO) 0.4 X 10^3 (1.0-4.0); LYMPHOCYTES % (AUTO) 4 % (12-44); MEAN CORPUSCULAR HEMOGLOBIN 31 PG (25-34); MEAN CORPUSCULAR HGB CONC 32 G/DL (32-36); MEAN CORPUSCULAR VOLUME 96 FL (80-99); MEAN PLATELET VOLUME 11.5 FL (7.4-10.4); MONOCYTES % (AUTO) 9 % (0-12); NEUTROPHILS # (AUTO) 10.1 X 10^3 (1.8-7.8); NEUTROPHILS % (AUTO) 88 % (42-75); PLATELET COUNT 95 10^3/uL (130-400); WHITE BLOOD COUNT 11.5 10^3/uL (4.3-11.0)
[2020-03-01 16:07] LABS: ALBUMIN 3.8 GM/DL (3.2-4.5); BILIRUBIN,TOTAL 0.4 MG/DL (0.1-1.0); CALCIUM 9.3 MG/DL (8.5-10.1); CREATININE SERUM 1.16 MG/DL (0.60-1.30); POTASSIUM 4.8 MMOL/L (3.6-5.0); TOTAL PROTEIN 6.9 GM/DL (6.4-8.2)
[2020-03-04 09:49] LABS: BASOPHILS % (AUTO) 0 % (0-10); EOSINOPHILS % (AUTO) 0 % (0-10); HEMATOCRIT 41 % (40-54); HEMOGLOBIN 13.1 G/DL (13.3-17.7); LYMPHOCYTES # (AUTO) 0.6 X 10^3 (1.0-4.0); LYMPHOCYTES % (AUTO) 7 % (12-44); MEAN CORPUSCULAR HEMOGLOBIN 31 PG (25-34); MEAN CORPUSCULAR HGB CONC 32 G/DL (32-36); MEAN CORPUSCULAR VOLUME 98 FL (80-99); MEAN PLATELET VOLUME 11.2 FL (7.4-10.4); MONOCYTES # (AUTO) 0.6 X 10^3 (0.0-1.0); MONOCYTES % (AUTO) 8 % (0-12); NEUTROPHILS # (AUTO) 6.8 X 10^3 (1.8-7.8); NEUTROPHILS % (AUTO) 85 % (42-75); PLATELET COUNT 89 10^3/uL (130-400)
[2020-03-10 13:23] LABS: BASOPHILS % (AUTO) 0 % (0-10); EOSINOPHILS % (AUTO) 0 % (0-10); HEMATOCRIT 42 % (40-54); HEMOGLOBIN 13.3 G/DL (13.3-17.7); LYMPHOCYTES # (AUTO) 0.4 X 10^3 (1.0-4.0); LYMPHOCYTES % (AUTO) 6 % (12-44); MEAN CORPUSCULAR HEMOGLOBIN 31 PG (25-34); MEAN CORPUSCULAR HGB CONC 32 G/DL (32-36); MEAN CORPUSCULAR VOLUME 97 FL (80-99); MEAN PLATELET VOLUME 10.3 FL (7.4-10.4); MONOCYTES # (AUTO) 0.1 X 10^3 (0.0-1.0); MONOCYTES % (AUTO) 1 % (0-12); NEUTROPHILS # (AUTO) 6.6 X 10^3 (1.8-7.8); NEUTROPHILS % (AUTO) 93 % (42-75); PLATELET COUNT 123 10^3/uL (130-400); WHITE BLOOD COUNT 7.2 10^3/uL (4.3-11.0)
[2020-03-10 13:41] LABS: ALBUMIN 3.8 GM/DL (3.2-4.5); BILIRUBIN,TOTAL 0.4 MG/DL (0.1-1.0); CALCIUM 9.2 MG/DL (8.5-10.1); CREATININE SERUM 1.3 MG/DL (0.60-1.30); POTASSIUM 4.4 MMOL/L (3.6-5.0); TOTAL PROTEIN 6.8 GM/DL (6.4-8.2)
[2020-03-15 12:01] LABS: BASOPHILS % (AUTO) 0 % (0-10); EOSINOPHILS % (AUTO) 0 % (0-10); HEMATOCRIT 41 % (40-54); HEMOGLOBIN 13.1 G/DL (13.3-17.7); LYMPHOCYTES # (AUTO) 0.5 X 10^3 (1.0-4.0); LYMPHOCYTES % (AUTO) 7 % (12-44); MEAN CORPUSCULAR HEMOGLOBIN 31 PG (25-34); MEAN CORPUSCULAR HGB CONC 32 G/DL (32-36); MEAN CORPUSCULAR VOLUME 97 FL (80-99); MONOCYTES # (AUTO) 0.4 X 10^3 (0.0-1.0); MONOCYTES % (AUTO) 6 % (0-12); NEUTROPHILS # (AUTO) 6.1 X 10^3 (1.8-7.8); NEUTROPHILS % (AUTO) 88 % (42-75); PLATELET COUNT 127 10^3/uL (130-400)
[2020-03-22 10:18] LABS: BASOPHILS % (AUTO) 0 % (0-10); EOSINOPHILS # (AUTO) 0.2 10^3/uL (0.0-0.3); EOSINOPHILS % (AUTO) 2 % (0-10); HEMATOCRIT 44 % (40-54); HEMOGLOBIN 14.4 G/DL (13.3-17.7); LYMPHOCYTES # (AUTO) 0.8 X 10^3 (1.0-4.0); LYMPHOCYTES % (AUTO) 9 % (12-44); MEAN CORPUSCULAR HEMOGLOBIN 31 PG (25-34); MEAN CORPUSCULAR HGB CONC 33 G/DL (32-36); MEAN CORPUSCULAR VOLUME 95 FL (80-99); MEAN PLATELET VOLUME 9.5 FL (7.4-10.4); MONOCYTES % (AUTO) 11 % (0-12); NEUTROPHILS # (AUTO) 7.1 X 10^3 (1.8-7.8); NEUTROPHILS % (AUTO) 78 % (42-75); PLATELET COUNT 209 10^3/uL (130-400); WHITE BLOOD COUNT 9.1 10^3/uL (4.3-11.0)
[2020-03-29 10:50] LABS: BASOPHILS % (AUTO) 0 % (0-10); EOSINOPHILS # (AUTO) 0.1 10^3/uL (0.0-0.3); EOSINOPHILS % (AUTO) 1 % (0-10); HEMATOCRIT 42 % (40-54); HEMOGLOBIN 13.8 G/DL (13.3-17.7); LYMPHOCYTES # (AUTO) 0.8 X 10^3 (1.0-4.0); LYMPHOCYTES % (AUTO) 9 % (12-44); MEAN CORPUSCULAR HEMOGLOBIN 31 PG (25-34); MEAN CORPUSCULAR HGB CONC 33 G/DL (32-36); MEAN CORPUSCULAR VOLUME 95 FL (80-99); MEAN PLATELET VOLUME 9.2 FL (7.4-10.4); MONOCYTES # (AUTO) 0.9 X 10^3 (0.0-1.0); MONOCYTES % (AUTO) 10 % (0-12); NEUTROPHILS # (AUTO) 7.2 X 10^3 (1.8-7.8); NEUTROPHILS % (AUTO) 80 % (42-75); PLATELET COUNT 175 10^3/uL (130-400)
[2020-04-05 12:23] LABS: BASOPHILS % (AUTO) 0 % (0-10); EOSINOPHILS % (AUTO) 0 % (0-10); HEMATOCRIT 43 % (40-54); HEMOGLOBIN 13.9 G/DL (13.3-17.7); LYMPHOCYTES # (AUTO) 0.7 X 10^3 (1.0-4.0); LYMPHOCYTES % (AUTO) 8 % (12-44); MEAN CORPUSCULAR HEMOGLOBIN 31 PG (25-34); MEAN CORPUSCULAR HGB CONC 32 G/DL (32-36); MEAN CORPUSCULAR VOLUME 95 FL (80-99); MEAN PLATELET VOLUME 9.1 FL (7.4-10.4); MONOCYTES # (AUTO) 0.8 X 10^3 (0.0-1.0); MONOCYTES % (AUTO) 10 % (0-12); NEUTROPHILS # (AUTO) 7.3 X 10^3 (1.8-7.8); NEUTROPHILS % (AUTO) 82 % (42-75); PLATELET COUNT 190 10^3/uL (130-400); WHITE BLOOD COUNT 8.9 10^3/uL (4.3-11.0)
[2020-04-16 13:58] LABS: BASOPHILS % (AUTO) 0 % (0-10); EOSINOPHILS # (AUTO) 0.1 10^3/uL (0.0-0.3); EOSINOPHILS % (AUTO) 1 % (0-10); HEMATOCRIT 40 % (40-54); LYMPHOCYTES % (AUTO) 12 % (12-44); MEAN CORPUSCULAR HEMOGLOBIN 31 PG (25-34); MEAN CORPUSCULAR HGB CONC 33 G/DL (32-36); MEAN CORPUSCULAR VOLUME 95 FL (80-99); MEAN PLATELET VOLUME 9.3 FL (7.4-10.4); MONOCYTES # (AUTO) 1.1 X 10^3 (0.0-1.0); MONOCYTES % (AUTO) 13 % (0-12); NEUTROPHILS # (AUTO) 6.4 X 10^3 (1.8-7.8); NEUTROPHILS % (AUTO) 74 % (42-75); PLATELET COUNT 221 10^3/uL (130-400); WHITE BLOOD COUNT 8.7 10^3/uL (4.3-11.0)
[2020-04-20 13:11] LABS: BASOPHILS % (AUTO) 0 % (0-10); EOSINOPHILS # (AUTO) 0.1 10^3/uL (0.0-0.3); EOSINOPHILS % (AUTO) 1 % (0-10); HEMATOCRIT 37 % (40-54); HEMOGLOBIN 12.3 G/DL (13.3-17.7); LYMPHOCYTES # (AUTO) 1.1 X 10^3 (1.0-4.0); LYMPHOCYTES % (AUTO) 16 % (12-44); MEAN CORPUSCULAR HEMOGLOBIN 31 PG (25-34); MEAN CORPUSCULAR HGB CONC 33 G/DL (32-36); MEAN CORPUSCULAR VOLUME 95 FL (80-99); MEAN PLATELET VOLUME 9.4 FL (7.4-10.4); MONOCYTES % (AUTO) 15 % (0-12); NEUTROPHILS # (AUTO) 4.8 X 10^3 (1.8-7.8); NEUTROPHILS % (AUTO) 68 % (42-75); PLATELET COUNT 210 10^3/uL (130-400); WHITE BLOOD COUNT 7.1 10^3/uL (4.3-11.0)
[2020-04-20 13:23] LABS: ALBUMIN 3.7 GM/DL (3.2-4.5); BILIRUBIN,TOTAL 0.3 MG/DL (0.1-1.0); CALCIUM 9.2 MG/DL (8.5-10.1); CREATININE SERUM 1.37 MG/DL (0.60-1.30); POTASSIUM 3.3 MMOL/L (3.6-5.0); TOTAL PROTEIN 6.7 GM/DL (6.4-8.2)
[~2020-05-24 13:13] MED LIST changes: -CATHETER FLUSH 10 ML SYR IV PRN
[2020-05-24 13:26] LABS: BASOPHILS % (AUTO) 1 % (0-10); EOSINOPHILS # (AUTO) 0.2 10^3/uL (0.0-0.3); EOSINOPHILS % (AUTO) 3 % (0-10); HEMATOCRIT 37 % (40-54); HEMOGLOBIN 12.1 G/DL (13.3-17.7); LYMPHOCYTES # (AUTO) 0.9 X 10^3 (1.0-4.0); LYMPHOCYTES % (AUTO) 15 % (12-44); MEAN CORPUSCULAR HEMOGLOBIN 32 PG (25-34); MEAN CORPUSCULAR HGB CONC 32 G/DL (32-36); MEAN CORPUSCULAR VOLUME 98 FL (80-99); MEAN PLATELET VOLUME 9.3 FL (7.4-10.4); MONOCYTES # (AUTO) 0.7 X 10^3 (0.0-1.0); MONOCYTES % (AUTO) 12 % (0-12); NEUTROPHILS % (AUTO) 70 % (42-75); PLATELET COUNT 192 10^3/uL (130-400); WHITE BLOOD COUNT 5.7 10^3/uL (4.3-11.0)
[2020-05-24 13:48] LABS: ALBUMIN 3.6 GM/DL (3.2-4.5); BILIRUBIN,TOTAL 0.3 MG/DL (0.1-1.0); CALCIUM 9.1 MG/DL (8.5-10.1); CREATININE SERUM 1.2 MG/DL (0.60-1.30); POTASSIUM 3.9 MMOL/L (3.6-5.0); TOTAL PROTEIN 6.4 GM/DL (6.4-8.2)
== END 2020-05-26 | disposition home or self-care (01) ==
LOC: ONC 13:13
PROVIDERS: ATTEND Internal Medicine Hematology & Oncology
DX: C21.1 Malignant neoplasm of anal canal (principal); E78.2 Mixed hyperlipidemia; I10 Essential (primary) hypertension; R07.9 Chest pain, unspecified; Z90.49 Acquired absence of other specified parts of digestive tract; Z98.890 Other specified postprocedural states; Z45.2 Encounter for adjustment and management of vascular access device
CPT/HCPCS: 80048; 80053; 85025; 96523; 99213

== ENCOUNTER 2020-07-13 05:36 | Outpatient (RCR) | payer MEDICARE, OTHER ==
[~2020-07-13] VITALS: Ht 172 cm; Wt 114.1 kg
== END 2020-07-13 10:06 | disposition home or self-care (01) ==
LOC: PREOP 05:36
PROVIDERS: ATTEND Internal Medicine
DX: Z01.812 Encounter for preprocedural laboratory examination (principal); Z20.828 Contact with and (suspected) exposure to other viral communicable diseases
CPT/HCPCS: 87635

== ENCOUNTER 2020-07-16 08:04 | Day surgery (SDC) | payer MEDICARE, OTHER ==
--- NOTE | 2020-07-09 06:31 | HISTORY AND PHYSICAL ---
DATE OF SERVICE: FLEXIBLE SIGMOIDOSCOPY HISTORY AND PHYSICAL DATE OF ADMISSION: . 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 He reports that he still has numbness in his hands and feet and is little less stable than he used to be. He still has some occasional fecal incontinence with urgency. Generally, his stools are formed, but during periods of urgency, they will be looser. He denies rectal pain and has noted no bleeding. He has had no chest pain or shortness of breath at rest with stable dyspnea on exertion. 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 PAST SURGICAL HISTORY: Significant for traumatic related kyphoplasty of L2 and L3. He has had left cochlear implant. Also significant for asthma controlled well on Advair; he has a predominant allergic component. PHYSICAL EXAMINATION: GENERAL: Reveals an overweight white male in no acute distress. Weight was up 13.8 pounds over the past two months. VITAL SIGNS: Blood pressure 148/80 at the beginning of the interview and 142/80 at the end. NECK: Revealed no JVD, adenopathy or bruits. CHEST: Clear. CARDIOVASCULAR: Revealed irregular rate and rhythm without significant murmur, S3 or S4. ABDOMEN: Soft, supple without mass, organomegaly or tenderness. EXTREMITIES: Reveal 1+ edema to the mid tibia bilaterally. Last oncology notes medical and radiation reviewed. The patient now four months out from his last radiation therapy. He is being set up for flexible sigmoidoscopy with anoscopy next Sunday. He was counseled to hold Eliquis for 48 hours prior. He will self-administer Fleet's enema the morning of flexible sigmoidoscopy. Job ID: [id number] DocumentID: [id number] Dictated Date: 07/07/2020 16:05:22 Tin Recovery Worker Date: 07/07/2020 17:22:16 Dictated By: JENNA SÁNCHEZ MD
[2020-07-16] VITALS (7 sets, daily range): BP systolic 129–146; BP diastolic 67–83
[~2020-07-16] VITALS: Ht 172 cm; Wt 114.1 kg
[2020-07-16] MEDS ORDERED: D5 LR IV SOLUTION 1,000 ML IV STA (08:07)
[2020-07-16] MEDS ORDERED: D5 LR IV SOLUTION 1,000 ML IV ONE (08:07)
[2020-07-16] MEDS ORDERED: MIDAZOLAM 5 MG/5 ML (VERSED) VIAL IV ONE (08:15)
[2020-07-16] MEDS ORDERED: fentaNYL INJECTION 100 MCG/2 ML AMP IVP ONE (08:15)
[2020-07-16] MEDS ORDERED: LIDOCAINE JELLY 2% 6 ML SYRINGE MM PRN (08:15)
[2020-07-16] MEDS ORDERED: MIDAZOLAM 5 MG/5 ML (VERSED) VIAL ONE (08:27)
[2020-07-16] MEDS ORDERED: LIDOCAINE JELLY 2% 6 ML SYRINGE ONE (08:27)
[2020-07-16] MEDS ORDERED: fentaNYL INJECTION 100 MCG/2 ML AMP ONE (08:28)
--- NOTE | 2020-07-16 08:38 | Pre-Op Note & Conscious Sedat ---
Pre-Operative Progress Note H&P Reviewed The H&P was reviewed, patient examined and no changes noted. Date H&P Reviewed: Jul 16, 2020 Time H&P Reviewed: 08:10 Conscious Sedation Pre-Proced ASA Score 2 For ASA 3 and 4: Consider anesthesia and medical clearance. Also, for patients with a history of failed moderate sedation consider anesthesia. Airway Lungs Heart ASA score ASA 1: a normal healthy patient ASA 2: a patient with a mild systemic disease (mid diabetes, controlled hypertension, obesity ASA 3: a patient with a severe systemic disease that limits activity (angina, COPD, prior Myocardial infarction) ASA 4: a patient with an incapacitating disease that is a constant threat to life (CHF, renal failure) ASA 5: a moribund patient not expected to survive 24 hrs. (ruptured aneurysm) ASA 6: a declared brain- patient whose organs are being harvested. For emergent operations, add the letter E after the classification Mallampati Classification Grade 3 Sedation Plan Analgesia, Amnesia, Plan communicated to team members, Discussed options with patient/fam, Discussed risks with patient/fam The patient is an appropriate candidate to undergo the planned procedure, sedation, and anesthesia. The patient immediately re-assessed prior to indication. JENNA SÁNCHEZ MD Jul 16, 2020 08:38
--- NOTE | 2020-07-16 21:15 | OPERATIVE REPORT ---
DATE OF SERVICE: 07/16/2020 FLEXIBLE SIGMOIDOSCOPY SUMMARY INDICATION FOR THE PROCEDURE: Surveillance, status post radiation and chemotherapy for squamous cell carcinoma of the anal canal. DESCRIPTION OF PROCEDURE: The patient was placed in the left lateral decubitus position. Prior to doing colonoscopy, digital rectal evaluation was performed. Anal sphincter tone was normal and the perianal reflexes intact. Prostate is anodular, nontender and not significantly enlarged in size. No palpable abnormalities of the anal canal or distal rectal vault were noted and nothing to suggest with no induration being appreciated and nothing on digital examination to suggest any recurrent anal squamous cell carcinoma. Flexible sigmoidoscopy was performed with an unremarkable anal canal. There was some mild erythema of the rectum compatible with mild radiation proctitis without evidence for ulceration. No other rectal abnormalities were noted. The sigmoid colon was unremarkable. ASSESSMENT: No endoscopic evidence for residual squamous cell carcinoma of the anal canal or rectum with mild rectal erythema. No ulceration was noted findings compatible with mild residual radiation proctitis. Job ID: [id number] DocumentID: [id number] Dictated Date: 07/16/2020 11:11:16 [facility] Office Supervisor Date: 07/16/2020 21:14:02 Dictated By: JENNA SÁNCHEZ MD [facility] [place]
== END 2020-07-16 09:25 | disposition home or self-care (01) ==
LOC: ENDO 08:04
PROVIDERS: ATTEND Internal Medicine
DX: Z12.11 Encounter for screening for malignant neoplasm of colon (principal); I82.409 Acute embolism and thrombosis of unspecified deep veins of unspecified lower extremity; I26.99 Other pulmonary embolism without acute cor pulmonale; I65.22 Occlusion and stenosis of left carotid artery; E66.9 Obesity, unspecified; Z68.38 Body mass index [BMI] 38.0-38.9, adult; Z79.01 Long term (current) use of anticoagulants; Z88.8 Allergy status to other drugs, medicaments and biological substances; Z92.3 Personal history of irradiation; Z92.21 Personal history of antineoplastic chemotherapy; Z85.048 Personal history of other malignant neoplasm of rectum, rectosigmoid junction, and anus

== ENCOUNTER 2020-08-30 13:10 | Outpatient (RCR) | payer MEDICARE, OTHER ==
[~2020-08-30 13:10] MED LIST changes: -ESCI20TA45 PO; +ESCI20TA56 PO; -MONT10TA26 PO; +MONT10TA97 PO
[2020-08-30 13:24] LABS: BASOPHILS # (AUTO) 0.1 10^3/uL (0.0-0.1); BASOPHILS % (AUTO) 1 % (0-10); EOSINOPHILS # (AUTO) 0.2 10^3/uL (0.0-0.3); EOSINOPHILS % (AUTO) 4 % (0-10); HEMATOCRIT 41 % (40-54); LYMPHOCYTES % (AUTO) 16 % (12-44); MEAN CORPUSCULAR HEMOGLOBIN 31 pg (25-34); MEAN CORPUSCULAR HGB CONC 32 g/dL (32-36); MEAN CORPUSCULAR VOLUME 97 fL (80-99); MEAN PLATELET VOLUME 9.6 fL (9.0-12.2); MONOCYTES % (AUTO) 16 % (0-12); NEUTROPHILS # (AUTO) 3.8 10^3/uL (1.8-7.8); NEUTROPHILS % (AUTO) 63 % (42-75); PLATELET COUNT 197 10^3/uL (130-400); WHITE BLOOD COUNT 6.1 10^3/uL (4.3-11.0)
[2020-08-30 13:51] LABS: ALBUMIN 3.9 GM/DL (3.2-4.5); BILIRUBIN,TOTAL 0.3 MG/DL (0.1-1.0); CALCIUM 9.1 MG/DL (8.5-10.1); CREATININE SERUM 1.26 MG/DL (0.60-1.30); POTASSIUM 3.8 MMOL/L (3.6-5.0); TOTAL PROTEIN 6.7 GM/DL (6.4-8.2)
== END 2020-10-14 13:50 | disposition home or self-care (01) ==
LOC: ONC 13:10
PROVIDERS: ATTEND Internal Medicine Hematology & Oncology
DX: C21.1 Malignant neoplasm of anal canal (principal); E78.2 Mixed hyperlipidemia; D69.3 Immune thrombocytopenic purpura; I10 Essential (primary) hypertension; R07.9 Chest pain, unspecified; Z90.49 Acquired absence of other specified parts of digestive tract; Z98.890 Other specified postprocedural states
CPT/HCPCS: 80053; 85025; G0463; 36591

== ENCOUNTER → 2020-11-25 | Outpatient (CLI) | payer MEDICARE, OTHER ==
[~2020-11-25] MED LIST changes: +BARIUM SUSPENSION 2.1% (VANILLA SILQ) 450 ML PO ONE; +CATHETER FLUSH 10 ML SYR IV PRN; +ESCI20TA39 PO; -ESCI20TA56 PO; +HOLD METFORMIN - RECEIVED CONTRAST 20 ML VIAL IV SCH; +IOHEXOL 350 MG/ML 100 ML (OMNIPAQUE 350) VIAL IV ONE; +MONT10TA32 PO; -MONT10TA97 PO; +NS 100 ML (IVPB) BAG IV ONE
[2020-11-25] MEDS: CATHETER FLUSH 10 ML SYR IV PRN ×2 (10:00→10:59)
--- NOTE | 2020-11-25 12:37 | Diagnostic Imaging Report ---
PROCEDURE: CT chest with contrast, CT abdomen and pelvis with and without contrast. TECHNIQUE: Pre and post intravenous contrast axial imaging of the abdomen and pelvis and post contrast axial imaging of the chest were performed. Auto Exposure Controls were utilized during the CT exam to meet ALARA standards for radiation dose reduction. INDICATION: Malignant neoplasm of the anus. Correlation is made with prior CT from 12/02/2019 and 12/03/2019. CT CHEST: A right chest wall port has tip at the SVC right atrial junction. No axillary lymphadenopathy is identified. No mediastinal or hilar lymphadenopathy is detected. No pericardial or pleural fluid is identified. No pulmonary infiltrates, nodules or masses are seen. The bony structures are nonacute. IMPRESSION: Stable CT chest. No thoracic lymphadenopathy or evidence of pulmonary metastatic disease is detected. CT abdomen and pelvis: Low-density lesion left lobe of liver appears to be stable. No new liver mass is detected. Gallbladder is surgically absent. There is no biliary ductal dilatation. Pancreas and spleen are unremarkable. No adrenal mass is detected. Kidneys appear stable. Exophytic cortical low attenuation lesion upper pole left kidney appears stable. Aorta is calcified but nonaneurysmal. No central retroperitoneal or mesenteric lymphadenopathy is seen. Small and large bowel loops are normal caliber. There is diverticulosis of the descending colon and sigmoid but no evidence of acute diverticulitis. Bladder is unremarkable. No definite pelvic lymphadenopathy is seen. Prostate is unremarkable. The bony structures are nonacute. IMPRESSION: Stable CT abdomen and pelvis since exam from 12/02/2019. No abdominal or pelvic lymphadenopathy or evidence of metastatic disease is detected. Dictated by: Dictated on workstation # [id number]
--- NOTE | 2020-11-25 14:27 | Diagnostic Imaging Report ---
INDICATION: Malignant neoplasm of the anus.. TECHNIQUE: The patient was administered 27.3 mCi technetium 99m MDP intravenously. Anterior and posterior whole-body planar images are obtained. CORRELATION STUDY: None FINDINGS: There is no abnormal areas of radiotracer accumulation that would suggest osseous blastic metastasis. There is multifocal areas of uptake along the lateral aspect of the left mid to lower ribs. There does appear to be very mild degenerative-type uptake about the the lower lumbar spine, bilateral shoulder girdles as well as knees. There is physiologic uptake by the kidneys with excretion into the urinary bladder. IMPRESSION: 1. Multifocal uptake about mid to lower left ribs. Given the distribution favors likely posttraumatic change. Correlation with patient's clinical history is recommended. 2. Otherwise no abnormal areas of uptake suggest presence of osseous metastatic disease. Dictated by: Dictated on workstation # [id number]
== END ==
LOC: CARD 09:43
PROVIDERS: ATTEND Nurse Practitioner Adult Health
DX: C21.0 Malignant neoplasm of anus, unspecified (principal)
CPT/HCPCS: 71260; 74178; 78306; A9503

== ENCOUNTER 2020-11-29 10:24 | Outpatient (RCR) | payer MEDICARE, OTHER ==
[2020-11-25 09:48] LABS: BASOPHILS # (AUTO) 0.1 10^3/uL (0.0-0.1); BASOPHILS % (AUTO) 1 % (0-10); EOSINOPHILS # (AUTO) 0.3 10^3/uL (0.0-0.3); EOSINOPHILS % (AUTO) 4 % (0-10); HEMATOCRIT 42 % (40-54); HEMOGLOBIN 13.5 g/dL (13.3-17.7); LYMPHOCYTES # (AUTO) 0.9 10^3/uL (1.0-4.0); LYMPHOCYTES % (AUTO) 14 % (12-44); MEAN CORPUSCULAR HEMOGLOBIN 30 pg (25-34); MEAN CORPUSCULAR HGB CONC 32 g/dL (32-36); MEAN CORPUSCULAR VOLUME 95 fL (80-99); MEAN PLATELET VOLUME 9.6 fL (9.0-12.2); MONOCYTES # (AUTO) 1.1 10^3/uL (0.0-1.0); MONOCYTES % (AUTO) 17 % (0-12); NEUTROPHILS # (AUTO) 4.1 10^3/uL (1.8-7.8); NEUTROPHILS % (AUTO) 63 % (42-75); PLATELET COUNT 203 10^3/uL (130-400); WHITE BLOOD COUNT 6.5 10^3/uL (4.3-11.0)
[2020-11-25 10:09] LABS: ALBUMIN 3.9 GM/DL (3.2-4.5); BILIRUBIN,TOTAL 0.4 MG/DL (0.1-1.0); CALCIUM 9.1 MG/DL (8.5-10.1); CREATININE SERUM 1.25 MG/DL (0.60-1.30); POTASSIUM 4.2 MMOL/L (3.6-5.0); TOTAL PROTEIN 6.8 GM/DL (6.4-8.2)
[~2020-11-29 10:24] MED LIST changes: -BARIUM SUSPENSION 2.1% (VANILLA SILQ) 450 ML PO ONE; -CATHETER FLUSH 10 ML SYR IV PRN; -HOLD METFORMIN - RECEIVED CONTRAST 20 ML VIAL IV SCH; -IOHEXOL 350 MG/ML 100 ML (OMNIPAQUE 350) VIAL IV ONE; -NS 100 ML (IVPB) BAG IV ONE
== END 2021-01-12 | disposition home or self-care (01) ==
LOC: ONC 10:24
PROVIDERS: ATTEND Internal Medicine Hematology & Oncology
DX: C21.1 Malignant neoplasm of anal canal (principal); D69.3 Immune thrombocytopenic purpura; E78.2 Mixed hyperlipidemia; I10 Essential (primary) hypertension; J44.9 Chronic obstructive pulmonary disease, unspecified; Z90.49 Acquired absence of other specified parts of digestive tract; Z98.890 Other specified postprocedural states; Z92.21 Personal history of antineoplastic chemotherapy; Z92.3 Personal history of irradiation
CPT/HCPCS: 36591; 80053; 85025; 99213

== ENCOUNTER 2021-02-14 13:15 | Outpatient (RCR) | payer MEDICARE, OTHER ==
[2021-02-17] MEDS ORDERED: GABA-490 PO (09:08)
== END 2021-05-11 | disposition home or self-care (01) ==
LOC: ONC 13:15
PROVIDERS: ATTEND Internal Medicine Hematology & Oncology
DX: C21.1 Malignant neoplasm of anal canal (principal); D69.3 Immune thrombocytopenic purpura; E78.2 Mixed hyperlipidemia; I10 Essential (primary) hypertension; J44.9 Chronic obstructive pulmonary disease, unspecified; F41.8 Other specified anxiety disorders; Z90.49 Acquired absence of other specified parts of digestive tract; Z98.890 Other specified postprocedural states; Z92.21 Personal history of antineoplastic chemotherapy; Z92.3 Personal history of irradiation
CPT/HCPCS: 99213

== ENCOUNTER 2021-02-17 05:39 | Outpatient (CLI) | payer MEDICARE, OTHER ==
[~2021-02-17] VITALS: Ht 172.7 cm; Wt 114.1 kg
[2021-02-17] MEDS ORDERED: GABA-490 PO (09:08)
== END 2021-02-17 13:32 | disposition home or self-care (01) ==
LOC: PREOP 05:39
PROVIDERS: ATTEND Internal Medicine
DX: Z01.818 Encounter for other preprocedural examination (principal)

== ENCOUNTER 2021-02-25 07:02 | Day surgery (SDC) | payer MEDICARE, OTHER ==
--- NOTE | 2021-02-14 07:14 | HISTORY AND PHYSICAL ---
DATE OF SERVICE: COLONOSCOPY HISTORY AND PHYSICAL HISTORY OF PRESENT ILLNESS: The patient is an 85-year-old white male being referred by Dr. Otero for surveillance colonoscopy. 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 He reports he is still having intermittent diarrhea with intermittent fecal incontinence for which he wears adult undergarments. It is unpredictable. He will have a mild sense of urgency when it happens and then will have a slightly loose stool, but he cannot control. He has noted no blood, bright red or melena, goes on average several times per day, reporting stools typically soft, slightly loose. He denies any associated pain. He does have a history of lumbar radiculopathy, right worse than left, which has been relatively stable. Lastly, he has past history of pulmonary embolism and is on anticoagulant therapy with no reported bleeding problems. PHYSICAL EXAMINATION: GENERAL: Reveals a white male, appears to be in no acute distress. VITAL SIGNS: His weight was up 11 pounds from 6 months ago, blood pressure 130/74. CHEST: Clear to auscultation. CARDIOVASCULAR: Reveals a regular rate and rhythm with soft 1 to 2/6 systolic ejection murmur heard best at left lower sternal border without evidence for pulsus, parvus or tardus. No S3 or S4 noted. ABDOMEN: Soft, supple without mass, organomegaly or tenderness. EXTREMITIES: Reveal no cyanosis or clubbing with trace edema. ASSESSMENT AND PLAN: 1. Squamous cell carcinoma of the anal canal. The patient is set up for surveillance colonoscopy. Prep instructions with Suprep kit were given and questions were answered. 2. Fecal incontinence, history suggesting a component of anal sphincter laxity, but will also need to be evaluating for more chronic radiation proctitis. Advised fiber supplementation daily in the form of Metamucil. 3. Past history of pulmonary embolism, no recurrence on Eliquis, continue. I will have the patient hold Eliquis for 24 hours prior to colonoscopy. Job ID: [id number] DocumentID: [id number] Dictated Date: 01/27/2021 17:00:13 Career Technical Education Teacher Date: 01/27/2021 17:17:39 Dictated By: JENNA SÁNCHEZ MD [facility], [place]
[~2021-02-25] VITALS: Ht 172.7 cm; Wt 114.1 kg
[2021-02-25] VITALS (7 sets, daily range): BP systolic 104–138; BP diastolic 58–88
[~2021-02-25 07:02] MED LIST changes: +GABA-490 PO
[2021-02-25] MEDS ORDERED: LACTATED RINGERS 1,000 ML IV STA (07:29)
[2021-02-25] MEDS ORDERED: LIDOCAINE JELLY 2% 6 ML SYRINGE MM PRN (07:30)
[2021-02-25] MEDS ORDERED: LACTATED RINGERS 1,000 ML IV ONE (07:33)
[2021-02-25] MEDS ORDERED: PROPOFOL INJECTION 50 ML IV ONE (07:39)
--- NOTE | 2021-02-25 07:57 | Pre-Op Note & Conscious Sedat ---
Pre-Operative Progress Note H&P Reviewed The H&P was reviewed, patient examined and no changes noted. Date H&P Reviewed: Feb 25, 2021 Time H&P Reviewed: 07:56 Conscious Sedation Pre-Proced ASA Score 3 For ASA 3 and 4: Consider anesthesia and medical clearance. Also, for patients with a history of failed moderate sedation consider anesthesia. Airway Lungs Heart ASA score ASA 1: a normal healthy patient ASA 2: a patient with a mild systemic disease (mid diabetes, controlled hypertension, obesity ASA 3: a patient with a severe systemic disease that limits activity (angina, COPD, prior Myocardial infarction) ASA 4: a patient with an incapacitating disease that is a constant threat to life (CHF, renal failure) ASA 5: a moribund patient not expected to survive 24 hrs. (ruptured aneurysm) ASA 6: a declared brain- patient whose organs are being harvested. For emergent operations, add the letter E after the classification Mallampati Classification Grade 3 Sedation Plan Analgesia, Amnesia, Plan communicated to team members, Discussed options with patient/fam, Discussed risks with patient/fam The patient is an appropriate candidate to undergo the planned procedure, sedation, and anesthesia. The patient immediately re-assessed prior to indication. JENNA SÁNCHEZ MD Feb 25, 2021 07:57
--- NOTE | 2021-02-25 14:47 | OPERATIVE REPORT ---
DATE OF SERVICE: COLONOSCOPY SUMMARY INDICATION FOR THE PROCEDURE: Fecal incontinence and surveillance for squamous cell carcinoma of the anal canal. DESCRIPTION OF PROCEDURE: The patient was placed in the left lateral decubitus position. Prior to undergoing colonoscopy, digital rectal evaluation was performed. Anal sphincter tone was normal and no abnormalities were noted on digital inspection of the anal canal or distal rectal vault. Prostate is small in size and anodular. The colonoscope was then inserted into the rectum and under direct visualization advanced to the cecum. The cecum was identified by identification of the ileocecal valve and cecal strap. Photographic documentation was obtained. Quality of prep was good. FINDINGS: There were some telangiectatic blood vessels in the anal canal as well as distal rectum. No other rectal abnormalities were appreciated. No evidence for recurrence of squamous cell was noted. 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 No other sigmoid colonic abnormalities were appreciated other than one distal sigmoid area of previous Eileen ink tattoo. No evidence for polyposis was noted in this area or elsewhere throughout the remainder of the colon. The descending colon, splenic flexure, transverse colon, hepatic flexure and ascending colon and cecum was unremarkable. IMPRESSION: No evidence for recurrence of squamous cell carcinoma of the anal canal was present and no evidence for neoplasia was identified on today's procedure. 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 Anal sphincter tone was normal and the prostate was small and anodular on digital inspection. Job ID: [id number] DocumentID: [id number] Dictated Date: 02/25/2021 08:57:58 Lumber Carrier Date: 02/25/2021 14:46:54 Dictated By: JENNA SÁNCHEZ MD
--- NOTE | 2021-02-25 15:05 | Anesthesia-General Post-Op ---
MAC Patient Condition Mental Status/LOC: Same as Preop Cardiovascular: Satisfactory Nausea/Vomiting: Absent Respiratory: Satisfactory Pain: Controlled Complications: Absent Post Op Complications Complications None Follow Up Care/Instructions Patient Instructions None needed. Anesthesiology Discharge Order Discharge Order Patient is doing well, no complaints, stable vital signs, no apparent adverse anesthesia problems. No complications reported per nursing. EMILIA WHYTE CRNA Feb 25, 2021 15:05
== END 2021-02-25 09:40 | disposition home or self-care (01) ==
LOC: ENDO 07:02
PROVIDERS: ATTEND Internal Medicine
DX: R15.9 Full incontinence of feces (principal); C21.0 Malignant neoplasm of anus, unspecified; K57.30 Diverticulosis of large intestine without perforation or abscess without bleeding; I10 Essential (primary) hypertension; J44.9 Chronic obstructive pulmonary disease, unspecified; G47.33 Obstructive sleep apnea (adult) (pediatric); Z79.01 Long term (current) use of anticoagulants; Z79.51 Long term (current) use of inhaled steroids; Z79.899 Other long term (current) drug therapy

== ENCOUNTER 2021-03-07 10:30 | Outpatient (RCR) | payer MEDICARE, OTHER | END 2021-03-30 16:07 | disposition home or self-care (01) | PROVIDERS: ATTEND Pain Medicine Interventional Pain Medicine | DX: M25.551 Pain in right hip (principal); M54.9 Dorsalgia, unspecified ==

== ENCOUNTER 2021-05-27 14:05 | Outpatient (RCR) | payer MEDICARE, OTHER | END 2021-05-27 16:01 | disposition home or self-care (01) | PROVIDERS: ATTEND Orthopaedic Surgery | DX: M70.61 Trochanteric bursitis, right hip (principal); M76.31 Iliotibial band syndrome, right leg; Z98.890 Other specified postprocedural states; Z85.038 Personal history of other malignant neoplasm of large intestine; Z92.3 Personal history of irradiation; Z92.21 Personal history of antineoplastic chemotherapy ==

== ENCOUNTER → 2021-08-03 | Outpatient (CLI) | payer MEDICARE, OTHER ==
[~2021-08-03] VITALS: Ht 172 cm; Wt 126.0 kg
[~2021-08-03] MED LIST changes: +CATHETER FLUSH 10 ML SYR IV PRN; -LEVO500T80 PO; +LEVO500T81 PO; +MONT-40 PO; -MONT10TA32 PO; +REGADENOSON 0.4 MG/5 ML SYR (LEXISCAN) IV ONE
[2021-08-03 13:12] VITALS: BP 144/77
--- NOTE | 2021-08-03 14:34 | Cardiology Stress Test Report ---
Stress Test Report Date of Procedure/Referring: Date of Procedure: Aug 03, 2021 PCP Pantera Bhatt MD Admitting Physician Holland Reich III, MD Indications: HTN Baseline Heart Rate: 62 Baseline Blood Pressure: Blood Pressure Systolic: 144 Blood Pressure Diastolic: 77 Baseline Vitals Vital Signs Date Time Temp Pulse Resp B/P (MAP) Pulse Ox O2 Delivery O2 Flow Rate FiO2 08/03/21 13:12 62 144/77 (99) 96 Baseline EKG: Baseline EKG: NSR Summary After explaining the procedure to the patient, he signed a consent and then brought to the stress nuclear laboratory. Patient received 0.4 mg Lexiscan for stress test, ECG, heart rate and blood pressure were monitored continuously. Resting and stress dose of radio tracer were injected, imaging was acquired and reviewed in short axis, horizontal long axis and vertical long axis views. TID: 1.05 SSS: 6 SDS: 4 EF: 60 1. Patient tolerated Lexiscan well 2. Diaphragmatic attenuation with mild reversible ischemia involving the mid to apical inferior wall and inferolateral wall 3. Normal left ventricular size, EF 60% PANTERA BHATT MD Aug 03, 2021 14:34
== END ==
LOC: CARD 11:50
PROVIDERS: ATTEND Internal Medicine Cardiovascular Disease
DX: I11.9 Hypertensive heart disease without heart failure (principal); I34.0 Nonrheumatic mitral (valve) insufficiency; I25.10 Atherosclerotic heart disease of native coronary artery without angina pectoris
CPT/HCPCS: 78452; 93017; 93306; A9502

== ENCOUNTER 2021-08-11 12:59 | Outpatient (RCR) | payer MEDICARE, OTHER ==
[2021-05-25 13:32] LABS: BASOPHILS # (AUTO) 0.1 10^3/uL (0.0-0.1); BASOPHILS % (AUTO) 1 % (0-10); EOSINOPHILS # (AUTO) 0.3 10^3/uL (0.0-0.3); EOSINOPHILS % (AUTO) 4 % (0-10); HEMATOCRIT 39 % (40-54); HEMOGLOBIN 12.2 g/dL (13.3-17.7); LYMPHOCYTES # (AUTO) 1.3 10^3/uL (1.0-4.0); LYMPHOCYTES % (AUTO) 19 % (12-44); MEAN CORPUSCULAR HEMOGLOBIN 31 pg (25-34); MEAN CORPUSCULAR HGB CONC 31 g/dL (32-36); MEAN CORPUSCULAR VOLUME 98 fL (80-99); MEAN PLATELET VOLUME 9.5 fL (9.0-12.2); MONOCYTES % (AUTO) 15 % (0-12); NEUTROPHILS # (AUTO) 4.1 10^3/uL (1.8-7.8); NEUTROPHILS % (AUTO) 60 % (42-75); PLATELET COUNT 205 10^3/uL (130-400); WHITE BLOOD COUNT 6.8 10^3/uL (4.3-11.0)
[2021-05-25 13:52] LABS: ALBUMIN 3.8 GM/DL (3.2-4.5); BILIRUBIN,TOTAL 0.3 MG/DL (0.1-1.0); CALCIUM 9.6 MG/DL (8.5-10.1); CREATININE SERUM 1.3 MG/DL (0.60-1.30); TOTAL PROTEIN 6.7 GM/DL (6.4-8.2)
[~2021-08-11 12:59] MED LIST changes: -CATHETER FLUSH 10 ML SYR IV PRN; -REGADENOSON 0.4 MG/5 ML SYR (LEXISCAN) IV ONE
[2021-08-24] MEDS ORDERED: APIX5TAB PO (10:58)
[2021-08-24] MEDS ORDERED: TMSL.4C PO (10:58)
[2021-08-24] MEDS ORDERED: MELO15TA39 PO (10:58)
[2021-08-24] MEDS ORDERED: GARL1TAB2 PO (10:58)
[2021-08-24] MEDS ORDERED: ESCI10TA PO (10:58)
[2021-08-24] MEDS ORDERED: PRAM1TAB2 PO (10:58)
[2021-08-24] MEDS ORDERED: HYDR25TA4 PO (10:58)
[2021-08-24] MEDS ORDERED: ACET-3075 PO (10:58)
[2021-08-24] MEDS ORDERED: FLUT9.9S NS (10:58)
[2021-08-24] MEDS ORDERED: MONT-40 PO (10:58)
[2021-08-24] MEDS ORDERED: ACET-2267 PO (10:58)
[2021-08-24] MEDS ORDERED: GABA300C PO (10:58)
[2021-08-24] MEDS ORDERED: RT-ALBUINH IH (10:58)
[2021-08-24] MEDS ORDERED: CETI10TA17 PO (10:58)
[2021-08-24] MEDS ORDERED: MTP25TSR PO (10:58)
[2021-08-24] MEDS ORDERED: FLUT1DIS26 IH (10:58)
[2021-08-24] MEDS ORDERED: ATOR10TA66 PO (10:58)
[2021-08-24] MEDS ORDERED: MELA10TA2 PO (10:58)
[2021-08-24] MEDS ORDERED: LORA-405 PO (11:02)
== END 2021-08-23 | disposition home or self-care (01) ==
LOC: ONC 12:59
PROVIDERS: ATTEND Internal Medicine Hematology & Oncology
DX: C21.1 Malignant neoplasm of anal canal (principal); D69.3 Immune thrombocytopenic purpura; E78.2 Mixed hyperlipidemia; I10 Essential (primary) hypertension; Z90.49 Acquired absence of other specified parts of digestive tract; Z98.890 Other specified postprocedural states; Z92.21 Personal history of antineoplastic chemotherapy; Z92.3 Personal history of irradiation
CPT/HCPCS: 80053; 85025; G0463; 36591

== ENCOUNTER 2021-08-24 11:00 | Day surgery (SDC) | payer MEDICARE, OTHER ==
[2021-08-24] VITALS (10 sets, daily range): BP systolic 96–162; BP diastolic 59–83
[~2021-08-24] VITALS: Ht 172.7 cm; Wt 128.0 kg
[2021-08-24 09:27] LABS: HEMATOCRIT 40 % (40-54); HEMOGLOBIN 12.6 g/dL (13.3-17.7); MEAN CORPUSCULAR HEMOGLOBIN 30 pg (25-34); MEAN CORPUSCULAR HGB CONC 32 g/dL (32-36); MEAN CORPUSCULAR VOLUME 95 fL (80-99); MEAN PLATELET VOLUME 9.5 fL (9.0-12.2); PLATELET COUNT 196 10^3/uL (130-400); WHITE BLOOD COUNT 7.6 10^3/uL (4.3-11.0)
[2021-08-24] MEDS: NS IV 1000 ML 1,000 ML IV SCH ×4 (09:30→22:33)
[2021-08-24 09:39] LABS: INR 1.1 (0.8-1.4); PROTHROMBIN TIME PATIENT 14.6 SEC (12.2-14.7)
[2021-08-24 09:51] LABS: ALBUMIN 3.5 GM/DL (3.2-4.5); BILIRUBIN,TOTAL 0.5 MG/DL (0.1-1.0); CALCIUM 8.4 MG/DL (8.5-10.1); CREATININE SERUM 1.39 MG/DL (0.60-1.30); POTASSIUM 3.7 MMOL/L (3.6-5.0); TOTAL PROTEIN 6.1 GM/DL (6.4-8.2)
--- NOTE | 2021-08-24 09:53 | Diagnostic Imaging Report ---
INDICATION: Preop for heart catheterization. TIME OF EXAM: 9:29 AM. COMPARISON: Correlation is made with the prior chest of 11/01/2015. FINDINGS: The heart size is normal. The lungs are clear. No infiltrates are seen. There is no effusion or pneumothorax. There is a right chest wall port with the tip overlying the SVC. IMPRESSION: No acute cardiopulmonary process is detected. Dictated by: Dictated on workstation # [id number]
--- NOTE | 2021-08-24 10:50 | Conscious Sedation/ASA ---
Conscious Sedation Pre-Proced Time 10:49 ASA Score 3 For ASA 3 and 4: Consider anesthesia and medical clearance. Also, for patients with a history of failed moderate sedation consider anesthesia. Airway Lungs Heart ASA score ASA 1: a normal healthy patient ASA 2: a patient with a mild systemic disease (mid diabetes, controlled hypertension, obesity x ASA 3: a patient with a severe systemic disease that limits activity (angina, COPD, prior Myocardial infarction) ASA 4: a patient with an incapacitating disease that is a constant threat to life (CHF, renal failure) ASA 5: a moribund patient not expected to survive 24 hrs. (ruptured aneurysm) ASA 6: a declared brain- patient whose organs are being harvested. For emergent operations, add the letter E after the classification Mallampati Classification Grade 3 Sedation Plan Analgesia, Amnesia, Plan communicated to team members, Discussed options with patient/fam, Discussed risks with patient/fam The patient is an appropriate candidate to undergo the planned procedure, sedation, and anesthesia. The patient immediately re-assessed prior to indication. PANTERA MCDUFFIE MD Aug 24, 2021 10:50
[~2021-08-24 11:00] MED LIST changes: +ACET-2267 PO; +ACET-3075 PO; +ATOR10TA66 PO; +CETI10TA17 PO; +ESCI10TA PO; +FLUT9.9S NS; +GABA300C PO; +GARL1TAB2 PO; +HEParin (CATH LAB) 2,000 ML IV ONE; +LIDOCAINE 1% INJ 20 ML 20 ML VIAL ONE; +MELA10TA2 PO; +MIDAZOLAM 5 MG/5 ML (VERSED) VIAL ONE; +MTP25TSR PO; +NS IV 1000 ML 1,000 ML ONE; +PRAM1TAB2 PO; +TMSL.4C PO; +fentaNYL INJ 100 MCG/2 ML AMP ONE
[2021-08-24] MEDS ORDERED: LORA-405 PO (11:02)
[2021-08-24] MEDS ORDERED: NITRO DRIP 25000 MCG/D5W 250 ML IV ONE (11:22)
[2021-08-24] MEDS ORDERED: HEParin 1000 UNIT/ML (10ML VIAL) FOR BOLUS ONE (11:22)
[2021-08-24] MEDS ORDERED: CLOPIDOGREL 300 MG (PLAVIX) TABLET PO ONE (12:22)
[2021-08-24] MEDS ORDERED: ASPIRIN 325 MG (5 GR) TABLET ONE (12:22)
[2021-08-24] MEDS ORDERED: PATIENT MAY USE OWN MEDS, ALL PO SCH (12:30)
[2021-08-24] MEDS ORDERED: RT-ALBUTEROL SULF 2.5 MG/3 ML PRE-MIX VIAL IH PRN (12:30)
--- NOTE | 2021-08-24 13:16 | Cardiac Cath Report ---
Cardiac Cath Report Physician (s)/Penal Officer (s) Physician PANTERA MCDUFFIE MD Pre-Procedure Diagnosis Pre-Procedure Diagnosis: Coronary artery disease Post-Procedure Note Procedure Start Date: Aug 24, 2021 Name of Procedure: Left heart catheterization Stenting to the circumflex artery Stenting to the LAD Findings/Procedure Note PROCEDURE NOTE: 85-year-old gentleman with history of peripheral arterial disease, carotid stenosis, has been having chest pain, had an abnormal stress test, scheduled for cardiac catheterization possible PTCA. After explaining the procedure to the patient, all pros and cons were explained, all questions were answered. The patient signed the consent and then he was placed on the cardiac catheterization laboratory. Groin was prepped SL fashion local anesthesia was used. Sheath placed in the right femoral artery. Kendall right and left catheter were used to access the coronary system. Pigtail was used to access the left ventricular cavity. Left ventriculogram was not done, pressure was measured Patient had severe stenosis at the proximal and mid LAD and severe stenosis at the mid circumflex artery. Received 6000 units of heparin, BMW wire was advanced and parked in the distal circumflex artery. I attempted primary stenting using aditya point stent 2.5 x 23 and was unable to advance the stent subsequently I advanced 2.5 mm balloon and did multiple inflation then I advanced the stent and positioned it carefully deployed at under 15 jd up to 2.7 mm with excellent results. At that point I decided to attempt intervention on the LAD The BMW wire was advanced and parked in the distal LAD. I attempted to advance a stent in the LAD without success and I lost the position of the stent and wire subsequently I was unable to advance the wire in the LAD I parked it in the diagonal artery and used whisper extra-support wire and advanced it in the LAD then I advanced 2.5 x 20 mm balloon and did multiple inflation then I proceeded with deployment of Xience skypoint 2.5 x 15 mm in the mid LAD, then I attempted to advance a 3.0 stent to the proximal LAD and I was a unable to make it overlap with the previous stent subsequently I used 3.0 balloon and dilated the proximal portion of the first stent then deployed aditya point 3.0 x 18 mm at the ostial LAD overlapping with the mid stent. Angiogram showed dissection at the distal LAD subsequently I advanced a third stent 2.5 x 15 mm and deployed it without difficulties. Angiogram showed excellent results At the end of the procedure the sheath was removed. Closure device was deployed FINDINGS: Hemodynamics LV 125/16, end-diastolic pressure of 16 Aorta 147/62 mean of 94 ANATOMY: Left Main has mild to moderate stenosis Left Anterior Descending has severe stenosis at the proximal and midportion calcified and tortuous artery, complex intervention requiring multiple wires and predilatation with balloon then deployment of 3 overlapping skypoint stents starting proximally with 3 x 18 mm followed by 2.5 x 15 mm and 2.5 x 15 mm expanded proximally to 3.1 mm and distally 2.5 mm. Excellent results Left Circumflex has severe stenosis at the midportion, complex intervention with balloon angioplasty then deployment of skypoint stent 2.5 x 18 mm expanded to 2.7 mm with excellent results Right Coronary Artery has moderate stenosis at the midportion LV Gram was not done, pressure was measured CONCLUSION: 1. Severe stenosis at the proximal and mid LAD with complex intervention and deployment of 3 overlapping stent using aditya point stents proximally 3 x 18 mm followed by 2.5 x 15 mm and 2.5 x 50 mm with excellent results 2. Severe stenosis at the mid circumflex artery with successful deployment of aditya point stent 2.5 x 18 mm with excellent results 3. Moderate stenosis in the mid right coronary artery 4. Normal left ventricular end-diastolic pressure DISCUSSION AND RECOMMENDATION: Patient received large amount of dye due to to the complexity of the lesion and difficult anatomy. Requiring multiple stenting. He has been on Eliquis as an outpatient, currently loaded with aspirin and Plavix in addition to the Eliquis. I will continue monitoring him and educated him about aggressive hydration. Anesthesia Type: Conscious Sedation Estimated blood loss (mL): 30 ml Contrast Amount: 240 ml Total Radiation Dose: 3305 mGy Post-Procedure Diagnosis Post-operative diagnosis: Chest pain Coronary artery disease Peripheral arterial disease Hypertension PANTERA MCDUFFIE MD Aug 24, 2021 13:16
[2021-08-24] MEDS ORDERED: ACETAMINOPHEN 500 MG TAB (TYLENOL) ONE (13:28)
[2021-08-24] MEDS ORDERED: ACETAMINOPHEN 500 MG TAB (TYLENOL) PO ONE (13:30)
[2021-08-24] MEDS ORDERED: FLUTICASONE NASAL SPRAY (FLONASE) 16 GM BTL NS PRN (18:00)
[2021-08-24] MEDS ORDERED: PRAMIPEXOLE 0.5 MG TAB (MIRAPEX) PO SCH (21:00)
[2021-08-24] MEDS ORDERED: AtorvaSTATin TABLET 10 MG TABLET PO SCH (21:00)
[2021-08-24] MEDS ORDERED: GABAPENTIN 300 MG (NEURONTIN) CAP PO SCH (21:00)
[2021-08-24] MEDS ORDERED: LORazepam 1 MG (ATIVAN) TAB PO SCH (21:00)
[2021-08-24] MEDS ORDERED: MONTELUKAST 10 MG (SINGULAIR) TAB PO SCH (21:00)
[2021-08-24] MEDS ORDERED: MELATONIN 10 MG TABLET PO SCH (21:00)
[2021-08-24] MEDS: RT--FLUTICASONE/SALMETEROL 113-14 (AIRDUO RespiCLICK) IH SCH (21:57)
[2021-08-25 00:23] VITALS: BP 137/56
[2021-08-25 04:51] VITALS: BP 145/80
[2021-08-25 05:13] LABS: HEMATOCRIT 40 % (40-54); HEMOGLOBIN 12.6 g/dL (13.3-17.7); MEAN CORPUSCULAR HEMOGLOBIN 30 pg (25-34); MEAN CORPUSCULAR HGB CONC 32 g/dL (32-36); MEAN CORPUSCULAR VOLUME 95 fL (80-99); MEAN PLATELET VOLUME 9.8 fL (9.0-12.2); PLATELET COUNT 184 10^3/uL (130-400); WHITE BLOOD COUNT 8.3 10^3/uL (4.3-11.0)
[2021-08-25 05:16] LABS: POTASSIUM 4.3 MMOL/L (3.6-5.0)
[2021-08-25 05:17] LABS: CALCIUM 8.9 MG/DL (8.5-10.1)
[2021-08-25 05:22] LABS: CREATININE SERUM 1.44 MG/DL (0.60-1.30)
[2021-08-25] MEDS: NS IV 1000 ML 1,000 ML IV SCH ×2 (05:26→09:03)
[2021-08-25] MEDS ORDERED: ASPI-1238 PO (06:03)
[2021-08-25] MEDS ORDERED: CLOP75TA28 PO (06:03)
[2021-08-25] MEDS ORDERED: PANT40TA2 PO (06:03)
--- NOTE | 2021-08-25 06:04 | Discharge Inst-Post CATH ---
Discharge Inst-CATH/EP Problems Reviewed?: Yes Post Cardiac Cath/EP D/C Inst Follow Up/Plan Appointment with Dr Bhatt in 2-4 weeks <b>CARDIAC CATH/EP PROCEDURE DISCHARGE INSTRUCTIONS</b> ACTIVITY * Go Home directly and rest. * Limit activity of the leg (or wrist if it was used) for 7 days including aerobics, swimming, jogging, bicycling, etc. * Restrict stair-climbing for 7 days if possible, if not, climb up with your non-cath leg, then bring together on the same step. * Avoid lifting, pushing, pulling or excessive movement of the affected extremity for 7 days. * Customary sexual activity may be resumed after 2 days-use caution not to use a position that strains or causes pain to the affected extremity. * No driving for 24 hours. * NO SMOKING. * Avoid straining for bowel movements for 7 days. * Gentle walking on level ground is allowed. * Returning to work will depend on the type of procedure and the results. Your doctor will discuss this with you. CALL YOUR DOCTOR FOR ANY OF THE FOLLOWING: *If bleeding from the puncture site occurs- Apply gentle pressure to site with clean cloth and call your doctor or EMS. * If a knot or lump forms under the skin, increases in size, or causes pain. * If bruising appears to be worsening or moving further down your leg instead of disappearing. * Temperature above 101 F. CARE OF YOUR GROIN INCISION; * Bruising or purple discoloration of the skin near the puncture site is common. * You may shower only, no bathtub bathing for 5 days. Be careful to avoid slipping as your leg may feel stiff. * If a closure device was used on your femoral artery, please see the attached guide regarding care of the device and your leg. * Leave dressing on FOR 24 hours. CARE OF YOUR WRIST INCISION; * Bruising or purple discoloration of the skin near the puncture site is common. * You may shower. * DO NOT submerge wrist. * Leave dressing on FOR 24 hours. PANTERA BHATT MD Aug 25, 2021 06:04
[2021-08-25 07:46] VITALS: BP 123/81
--- NOTE | 2021-08-25 08:22 | Cardiology Progress Note ---
Subjective Date Seen by Provider: Aug 25, 2021 Time Seen by Provider: 08:21 Subjective/Events-last exam Patient was seen at bedside, laying down in bed, feeling better. No complication Review of Systems General: No Chills, No Night Sweats, No Fatigue, No Malaise, No Appetite, No Other HEENT: No Head Aches, No Visual Changes, No Eye Pain, No Ear Pain, No Dysphasia, No Sinus Congestion, No Post Nasal Drip, No Sore Throat, No Other Pulmonary: No Dyspnea, No Cough, No Pleuritic Chest Pain, No Other Cardiovascular: No: Chest Pain, Palpitations, Orthopnea, Paroxysmal Noc. Dyspnea, Edema, Lt Headedness, Other Objective-Cardiology Exam Last Set of Vital Signs Vital Signs 08/25/21 07:46 Temp 36.2 Pulse 62 Resp 15 B/P (MAP) 123/81 (95) Pulse Ox 94 O2 Delivery Room Air I&O Intake and Output 08/25/21 00:00 Intake Total 700 ml Output Total 325 ml Balance 375 ml Intake Oral 700 ml Output Urine Total 325 ml General: Alert, Oriented X3, Cooperative HEENT: Atraumatic, PERRLA Neck: Supple, No JVD, No Thyromegaly Lungs: Clear to Auscultation, Normal Air Movement Heart: Regular Rate, Normal S1, Normal S2, No Murmurs Abdomen: Normal Bowel Sounds, Soft, No Tenderness, No Hepatosplenomegaly, No Masses Extremities: No Clubbing, No Cyanosis, No Edema, Normal Pulses, No Tenderness/Swelling Skin: No Rashes, No Breakdown, No Significant Lesion Neuro: Normal Gait, Normal Speech, Strength at 5/5 X4 Ext, Normal Tone, Sensation Intact Psych/Mental Status: Mental Status NL, Mood NL Results Lab Laboratory Tests 08/24/21 09:20 08/25/21 04:54 A/P-Cardiology Admission Diagnosis Coronary artery disease Hypertension Hyperlipidemia Chronic renal insufficiency Assessment/Plan Coronary artery disease, extensive disease, complex intervention with deployment of a stent in the circumflex artery and 3 stents in the LAD as described below. 1. Severe stenosis at the proximal and mid LAD with complex intervention and deployment of 3 overlapping stent using aditya point stents proximally 3 x 18 mm followed by 2.5 x 15 mm and 2.5 x 50 mm with excellent results 2. Severe stenosis at the mid circumflex artery with successful deployment of aditya point stent 2.5 x 18 mm with excellent results 3. Moderate stenosis in the mid right coronary artery 4. Normal left ventricular end-diastolic pressure Hypertension, continue current medication monitor blood pressure Hyperlipidemia, monitor lipids Chronic renal insufficiency, patient received a large amount of contrast due to the complex anatom, educated and instructed on drinking large amount of fluid PANTERA MCDUFFIE MD Aug 25, 2021 08:22
[2021-08-25] MEDS ORDERED: ACETAMINOPHEN 500 MG TAB (TYLENOL) PO SCH (09:00)
[2021-08-25] MEDS ORDERED: ASPIRIN E.C. 81 MG (ECOTRIN) TAB PO SCH (09:00)
[2021-08-25] MEDS ORDERED: TAMSULOSIN 0.4 MG (FLOMAX) CAP PO SCH (09:00)
[2021-08-25] MEDS ORDERED: LORATADINE (CLARITIN) 10 MG TAB PO SCH (09:00)
[2021-08-25] MEDS ORDERED: GARLIC PO SCH (09:00)
[2021-08-25] MEDS ORDERED: CLOPIDOGREL 75 MG (PLAVIX) TABLET PO SCH (09:00)
[2021-08-25] MEDS: RT--FLUTICASONE/SALMETEROL 113-14 (AIRDUO RespiCLICK) IH SCH (10:10)
== END 2021-08-25 10:45 ==
LOC: CSD 12:45 → CATH 08-25 10:45
PROVIDERS: ATTEND Internal Medicine Cardiovascular Disease
DX: I25.10 Atherosclerotic heart disease of native coronary artery without angina pectoris (principal); I73.9 Peripheral vascular disease, unspecified; I12.9 Hypertensive chronic kidney disease with stage 1 through stage 4 chronic kidney disease, or unspecified chronic kidney disease; N18.9 Chronic kidney disease, unspecified; I34.0 Nonrheumatic mitral (valve) insufficiency; I25.89 Other forms of chronic ischemic heart disease; G47.33 Obstructive sleep apnea (adult) (pediatric); R60.0 Localized edema; K21.9 Gastro-esophageal reflux disease without esophagitis; E66.9 Obesity, unspecified; E78.2 Mixed hyperlipidemia; I65.23 Occlusion and stenosis of bilateral carotid arteries; Z68.41 Body mass index [BMI] 40.0-44.9, adult; Z79.899 Other long term (current) drug therapy; Z79.01 Long term (current) use of anticoagulants; Z79.891 Long term (current) use of opiate analgesic; Z79.1 Long term (current) use of non-steroidal anti-inflammatories (NSAID); Z99.81 Dependence on supplemental oxygen; Z87.891 Personal history of nicotine dependence; Z86.711 Personal history of pulmonary embolism; Z86.718 Personal history of other venous thrombosis and embolism
CPT/HCPCS: 71045; 80048; 80053; 80061; 85027 ×2; 85610; 85730; 87081; 93005; 93458; 94640; C1725 ×2; C1760; C1769 ×2; C1874 ×4; C1887; C1894; C9600; C9601; 36415

== ENCOUNTER 2021-08-25 10:47 | Outpatient (RCR) | payer MEDICARE, OTHER ==
[~2021-08-25 10:47] MED LIST changes: +ASPI-1238 PO; +CLOP75TA28 PO; -HEParin (CATH LAB) 2,000 ML IV ONE; -LIDOCAINE 1% INJ 20 ML 20 ML VIAL ONE; +LORA-405 PO; -MIDAZOLAM 5 MG/5 ML (VERSED) VIAL ONE; -NS IV 1000 ML 1,000 ML ONE; +PANT40TA2 PO; -fentaNYL INJ 100 MCG/2 ML AMP ONE
== END 2021-09-09 | disposition still patient (30) ==
LOC: ONC 10:47
PROVIDERS: ATTEND Internal Medicine Hematology & Oncology
DX: Z45.2 Encounter for adjustment and management of vascular access device (principal); C21.1 Malignant neoplasm of anal canal; D69.3 Immune thrombocytopenic purpura; E78.2 Mixed hyperlipidemia; I10 Essential (primary) hypertension; M25.551 Pain in right hip; E66.9 Obesity, unspecified; Z90.49 Acquired absence of other specified parts of digestive tract; Z98.890 Other specified postprocedural states; Z92.21 Personal history of antineoplastic chemotherapy; Z92.3 Personal history of irradiation; Z68.38 Body mass index [BMI] 38.0-38.9, adult
CPT/HCPCS: 96523; G0463; 99213

== ENCOUNTER 2021-11-23 12:50 | Outpatient (RCR) | payer MEDICARE, OTHER ==
[2021-11-23 13:42] LABS: BASOPHILS # (AUTO) 0.1 10^3/uL (0.0-0.1); BASOPHILS % (AUTO) 1 % (0-10); EOSINOPHILS # (AUTO) 0.3 10^3/uL (0.0-0.3); EOSINOPHILS % (AUTO) 4 % (0-10); HEMATOCRIT 41 % (40-54); HEMOGLOBIN 12.9 g/dL (13.3-17.7); LYMPHOCYTES # (AUTO) 0.9 10^3/uL (1.0-4.0); LYMPHOCYTES % (AUTO) 13 % (12-44); MEAN CORPUSCULAR HEMOGLOBIN 31 pg (25-34); MEAN CORPUSCULAR HGB CONC 32 g/dL (32-36); MEAN CORPUSCULAR VOLUME 96 fL (80-99); MONOCYTES % (AUTO) 13 % (0-12); NEUTROPHILS % (AUTO) 68 % (42-75); PLATELET COUNT 189 10^3/uL (130-400); WHITE BLOOD COUNT 7.3 10^3/uL (4.3-11.0)
[2021-11-23 14:01] LABS: ALBUMIN 3.8 GM/DL (3.2-4.5); BILIRUBIN,TOTAL 0.3 MG/DL (0.1-1.0); CALCIUM 8.9 MG/DL (8.5-10.1); CREATININE SERUM 1.53 MG/DL (0.60-1.30); POTASSIUM 3.9 MMOL/L (3.6-5.0); TOTAL PROTEIN 6.8 GM/DL (6.4-8.2)
== END 2021-12-08 | disposition home or self-care (01) ==
LOC: ONC 12:50
PROVIDERS: ATTEND Internal Medicine Hematology & Oncology
DX: Z45.2 Encounter for adjustment and management of vascular access device (principal); C21.0 Malignant neoplasm of anus, unspecified; D69.3 Immune thrombocytopenic purpura; I10 Essential (primary) hypertension; J44.9 Chronic obstructive pulmonary disease, unspecified; K21.9 Gastro-esophageal reflux disease without esophagitis; F41.8 Other specified anxiety disorders; E78.2 Mixed hyperlipidemia; E66.9 Obesity, unspecified; Z92.21 Personal history of antineoplastic chemotherapy; Z92.3 Personal history of irradiation
CPT/HCPCS: 80053; 85025; G0463; 36591; 99213

== ENCOUNTER → 2022-02-23 | Outpatient (CLI) | payer MEDICARE, OTHER ==
[~2022-02-23] MED LIST changes: +IOHEXOL 350 MG/ML 100 ML (OMNIPAQUE 350) VIAL IV ONE; +NS 100 ML (IVPB) BAG IV ONE
--- NOTE | 2022-02-23 11:24 | Diagnostic Imaging Report ---
EXAMINATION: CT chest with intravenous contrast, CT abdomen and pelvis without and with intravenous contrast. TECHNIQUE: Pre and post intravenous contrast axial imaging of the abdomen and pelvis and post contrast axial imaging of the chest were performed. All CT scans use one or more of the following dose optimizing techniques: automated exposure control, MA and/or KvP adjustment based on patient size and exam type or iterative reconstruction. HISTORY: Anal cancer COMPARISON: 11/26/2019 FINDINGS: There is no edema or pneumonia. No pleural effusion. No pneumothorax. No suspicious nodules. There is mild dependent atelectasis. There is no axillary or supraclavicular lymphadenopathy. There is no mediastinal lymphadenopathy. Heart size is normal. There are severe coronary artery calcifications. No pericardial effusion. Aorta is normal in caliber. A right-sided central venous catheter is present. There is a simple cyst in segment two of the liver. No suspicious liver lesions. There is a slightly lobular contour of the caudate lobe of liver. There is no biliary ductal dilation. Gallbladder is surgically absent. Pancreas is normal. Spleen is normal. Adrenal glands are normal. There are cysts in both kidneys. No suspicious renal lesions. There is no hydronephrosis. Urinary bladder is normal. Bowel is normal in caliber without obstruction or inflammation. There is diverticulosis without diverticulitis. No free fluid or air. No abdominal or pelvic lymphadenopathy. Aorta is normal in caliber without aneurysm. There are no suspicious osseus lesions. There has been vertebroplasty of L2 and L3 compression fractures. IMPRESSION: 1. No metastatic disease seen in the chest, abdomen or pelvis. Dictated by: Dictated on workstation # [id number]
== END ==
LOC: RAD 09:15
PROVIDERS: ATTEND Internal Medicine Hematology & Oncology
DX: C21.1 Malignant neoplasm of anal canal (principal)
CPT/HCPCS: 71260; 74178

== ENCOUNTER 2022-02-28 09:56 | Outpatient (RCR) | payer MEDICARE, OTHER ==
[2022-02-23 08:22] LABS: BASOPHILS # (AUTO) 0.1 10^3/uL (0.0-0.1); BASOPHILS % (AUTO) 1 % (0-10); EOSINOPHILS # (AUTO) 0.3 10^3/uL (0.0-0.3); EOSINOPHILS % (AUTO) 4 % (0-10); HEMATOCRIT 40 % (40-54); HEMOGLOBIN 12.7 g/dL (13.3-17.7); LYMPHOCYTES # (AUTO) 1.2 10^3/uL (1.0-4.0); LYMPHOCYTES % (AUTO) 14 % (12-44); MEAN CORPUSCULAR HEMOGLOBIN 31 pg (25-34); MEAN CORPUSCULAR HGB CONC 32 g/dL (32-36); MEAN CORPUSCULAR VOLUME 95 fL (80-99); MEAN PLATELET VOLUME 9.7 fL (9.0-12.2); MONOCYTES # (AUTO) 1.3 10^3/uL (0.0-1.0); MONOCYTES % (AUTO) 16 % (0-12); NEUTROPHILS # (AUTO) 5.2 10^3/uL (1.8-7.8); NEUTROPHILS % (AUTO) 63 % (42-75); PLATELET COUNT 223 10^3/uL (130-400); WHITE BLOOD COUNT 8.2 10^3/uL (4.3-11.0)
[2022-02-23 08:43] LABS: BILIRUBIN,TOTAL 0.5 MG/DL (0.1-1.0); CALCIUM 9.7 MG/DL (8.5-10.1); CREATININE SERUM 1.71 MG/DL (0.60-1.30); POTASSIUM 4.1 MMOL/L (3.6-5.0); TOTAL PROTEIN 7.2 GM/DL (6.4-8.2)
[~2022-02-28 09:56] MED LIST changes: -IOHEXOL 350 MG/ML 100 ML (OMNIPAQUE 350) VIAL IV ONE; -NS 100 ML (IVPB) BAG IV ONE
== END 2022-03-09 | disposition home or self-care (01) ==
LOC: ONC 09:56
PROVIDERS: ATTEND Internal Medicine Hematology & Oncology
DX: C21.0 Malignant neoplasm of anus, unspecified (principal); D69.3 Immune thrombocytopenic purpura; E66.9 Obesity, unspecified; I10 Essential (primary) hypertension; F41.8 Other specified anxiety disorders; E78.2 Mixed hyperlipidemia; K21.9 Gastro-esophageal reflux disease without esophagitis; J44.9 Chronic obstructive pulmonary disease, unspecified; Z92.21 Personal history of antineoplastic chemotherapy; Z92.3 Personal history of irradiation
CPT/HCPCS: 36591; 80053; 85025; 99213

== ENCOUNTER 2022-05-30 13:28 | Outpatient (RCR) | payer MEDICARE, OTHER ==
[~2022-05-30 13:28] MED LIST changes: +LEVO-55 PO; -LEVO500T81 PO
[2022-05-30 13:48] LABS: BASOPHILS # (AUTO) 0.1 10^3/uL (0.0-0.1); BASOPHILS % (AUTO) 1 % (0-10); EOSINOPHILS # (AUTO) 0.4 10^3/uL (0.0-0.3); EOSINOPHILS % (AUTO) 4 % (0-10); HEMATOCRIT 39 % (40-54); HEMOGLOBIN 12.7 g/dL (13.3-17.7); LYMPHOCYTES # (AUTO) 1.2 10^3/uL (1.0-4.0); LYMPHOCYTES % (AUTO) 13 % (12-44); MEAN CORPUSCULAR HEMOGLOBIN 31 pg (25-34); MEAN CORPUSCULAR HGB CONC 32 g/dL (32-36); MEAN CORPUSCULAR VOLUME 96 fL (80-99); MEAN PLATELET VOLUME 9.7 fL (9.0-12.2); MONOCYTES # (AUTO) 1.2 10^3/uL (0.0-1.0); MONOCYTES % (AUTO) 12 % (0-12); NEUTROPHILS # (AUTO) 6.8 10^3/uL (1.8-7.8); NEUTROPHILS % (AUTO) 70 % (42-75); PLATELET COUNT 193 10^3/uL (130-400); WHITE BLOOD COUNT 9.8 10^3/uL (4.3-11.0)
[2022-05-30 14:15] LABS: ALBUMIN 3.7 GM/DL (3.2-4.5); BILIRUBIN,TOTAL 0.4 MG/DL (0.1-1.0); CALCIUM 9.4 MG/DL (8.5-10.1); CREATININE SERUM 1.49 MG/DL (0.60-1.30); TOTAL PROTEIN 6.7 GM/DL (6.4-8.2)
== END 2022-06-09 | disposition home or self-care (01) ==
LOC: ONC 13:28
PROVIDERS: ATTEND Internal Medicine Hematology & Oncology
DX: Z45.2 Encounter for adjustment and management of vascular access device (principal); C21.0 Malignant neoplasm of anus, unspecified; E66.9 Obesity, unspecified; I10 Essential (primary) hypertension; E78.2 Mixed hyperlipidemia; K21.9 Gastro-esophageal reflux disease without esophagitis; J44.9 Chronic obstructive pulmonary disease, unspecified; Z92.21 Personal history of antineoplastic chemotherapy; Z92.3 Personal history of irradiation
CPT/HCPCS: 80053; 85025; G0463; 36591

== ENCOUNTER 2022-08-29 12:40 | Outpatient (RCR) | payer MEDICARE, OTHER ==
[~2022-08-29 12:40] MED LIST changes: +ALBU8.5H6 IH; -RT-ALBUINH IH
== END 2022-09-09 | disposition home or self-care (01) ==
LOC: ONC 12:40
PROVIDERS: ATTEND Internal Medicine Hematology & Oncology
DX: Z45.2 Encounter for adjustment and management of vascular access device (principal); C21.0 Malignant neoplasm of anus, unspecified; E66.9 Obesity, unspecified; I10 Essential (primary) hypertension; E78.2 Mixed hyperlipidemia; K21.9 Gastro-esophageal reflux disease without esophagitis; J44.9 Chronic obstructive pulmonary disease, unspecified; F17.208 Nicotine dependence, unspecified, with other nicotine-induced disorders
CPT/HCPCS: 96523

== ENCOUNTER 2022-09-21 09:15 | Outpatient (RCR) | payer MEDICARE, OTHER | END 2022-10-10 | disposition home or self-care (01) | LOC: ONC 09:15 | PROVIDERS: ATTEND Internal Medicine Hematology & Oncology | DX: C21.0 Malignant neoplasm of anus, unspecified (principal); E66.9 Obesity, unspecified; J44.9 Chronic obstructive pulmonary disease, unspecified; I10 Essential (primary) hypertension; E78.2 Mixed hyperlipidemia; K21.9 Gastro-esophageal reflux disease without esophagitis; F17.208 Nicotine dependence, unspecified, with other nicotine-induced disorders | CPT/HCPCS: 99213 ==

== ENCOUNTER → 2022-10-09 | Outpatient (CLI) | payer MEDICARE, OTHER | LOC: CARD 12:00 | PROVIDERS: ATTEND Internal Medicine Cardiovascular Disease | DX: I35.0 Nonrheumatic aortic (valve) stenosis (principal) | CPT/HCPCS: 93306 ==

== ENCOUNTER → 2022-10-25 | Outpatient (CLI) | payer MEDICARE, OTHER ==
[~2022-10-25] VITALS: Ht 172 cm; Wt 121.0 kg
[~2022-10-25] MED LIST changes: +CATHETER FLUSH 10 ML SYR IVP PRN; +REGADENOSON 0.4 MG/5 ML SYR (LEXISCAN) IV ONE
[2022-10-25 13:26] VITALS: BP 135/73
--- NOTE | 2022-10-25 16:50 | Cardiology Stress Test Report ---
Stress Test Report Date of Procedure/Referring: Date of Procedure: Oct 25, 2022 PCP Holland Reich III, MD Admitting Physician Admitting Physician: Attending Physician: Pantera Bhatt MD Indications: CP Baseline Heart Rate: 71 Baseline Blood Pressure: Blood Pressure Systolic: 135 Blood Pressure Diastolic: 73 Baseline Vitals Vital Signs Date Time Temp Pulse Resp B/P (MAP) Pulse Ox O2 Delivery O2 Flow Rate FiO2 10/25/22 13:26 68 135/73 (93) Baseline EKG: Baseline EKG: NSR Summary After explaining the procedure to the patient, he signed a consent and then brought to the stress nuclear laboratory. Patient received 0.4 mg Lexiscan for stress test, ECG, heart rate and blood pressure were monitored continuously. Resting and stress dose of radio tracer were injected, imaging was acquired and reviewed in short axis, horizontal long axis and vertical long axis views. TID: 0.97 SSS: 5 SDS: 5 EF: 67 Patient tolerated Lexiscan well Reversible ischemia involving the mid to apical inferior wall Normal left ventricular size, EF 67% PANTERA BHATT MD Oct 25, 2022 16:50
== END ==
LOC: CARD 11:40
PROVIDERS: ATTEND Internal Medicine Cardiovascular Disease
DX: I10 Essential (primary) hypertension (principal); I25.10 Atherosclerotic heart disease of native coronary artery without angina pectoris
CPT/HCPCS: 78452; 93017; A9502

== ENCOUNTER 2022-11-01 14:00 | Day surgery (SDC) | payer MEDICARE, OTHER ==
[2022-11-01] VITALS (8 sets, daily range): BP systolic 72–149; BP diastolic 58–80
[~2022-11-01] VITALS: Ht 172 cm; Wt 121.5 kg
[2022-11-01 12:41] LABS: HEMATOCRIT 42 % (40-54); HEMOGLOBIN 13.8 g/dL (13.3-17.7); MEAN CORPUSCULAR HEMOGLOBIN 30 pg (25-34); MEAN CORPUSCULAR HGB CONC 33 g/dL (32-36); MEAN CORPUSCULAR VOLUME 92 fL (80-99); MEAN PLATELET VOLUME 9.8 fL (9.0-12.2); PLATELET COUNT 255 10^3/uL (130-400); WHITE BLOOD COUNT 11.1 10^3/uL (4.3-11.0)
--- NOTE | 2022-11-01 12:41 | Diagnostic Imaging Report ---
EXAM: CHEST 1 VIEW, AP/PA ONLY. INDICATION: Coronary artery disease. Abnormal stress test. COMPARISON: Chest radiograph of 08/24/2021. FINDINGS: Normal heart size and central pulmonary vascularity. No focal pulmonary opacity. No pleural effusion or pneumothorax. Right tunneled port CVC tip in the mid SVC. No significant change. IMPRESSION: No acute cardiopulmonary findings. Dictated by: Dictated on workstation # [id number]
[2022-11-01 12:43] LABS: BILIRUBIN,URINE NEGATIVE (NEGATIVE); CLARITY,URINE CLEAR; COLOR,URINE YELLOW; GLUCOSE, URINE (UA) NEGATIVE (NEGATIVE); KETONES,URINE NEGATIVE (NEGATIVE); LEUKOCYTE ESTERASE ,URINE NEGATIVE (NEGATIVE); NITRITE,URINE NEGATIVE (NEGATIVE); PROTEIN,URINE NEGATIVE (NEGATIVE)
[2022-11-01 12:52] LABS: BACTERIA,URINE NEGATIVE /HPF; SQUAMOUS EPITHELIAL CELL,UR RARE /HPF
[2022-11-01 12:54] LABS: ALBUMIN 4.1 GM/DL (3.2-4.5)
[2022-11-01 12:55] LABS: CALCIUM 9.8 MG/DL (8.5-10.1)
[2022-11-01 12:57] LABS: TOTAL PROTEIN 7.7 GM/DL (6.4-8.2)
[2022-11-01 12:58] LABS: BILIRUBIN,TOTAL 0.5 MG/DL (0.1-1.0)
[2022-11-01 13:00] LABS: CREATININE SERUM 1.6 MG/DL (0.60-1.30)
[2022-11-01 13:02] LABS: INR 1.1 (0.8-1.4); PROTHROMBIN TIME PATIENT 14.2 SEC (12.2-14.7)
--- NOTE | 2022-11-01 13:26 | Cardiac Procedure Note-CS/ASA ---
Pre-Procedure Note Pre-Op Procedure Note Date of Available H&P: Oct 26, 2022 Date H&P Reviewed: Nov 01, 2022 Time H&P Reviewed: : History & Physical: H&P Reviewed, Patient Examed, No changes noted Pre-Operative Diagnosis: Coronary artery disease Conscious Sedation Pre-Proced Time 13: ASA Score 3 For ASA 3 and 4: Consider anesthesia and medical clearance. Also, for patients with a history of failed moderate sedation consider anesthesia. Airway Lungs Heart ASA score ASA 1: a normal healthy patient ASA 2: a patient with a mild systemic disease (mid diabetes, controlled hypertension, obesity ASA 3: a patient with a severe systemic disease that limits activity (angina, COPD, prior Myocardial infarction) ASA 4: a patient with an incapacitating disease that is a constant threat to life (CHF, renal failure) ASA 5: a moribund patient not expected to survive 24 hrs. (ruptured aneurysm) ASA 6: a declared brain- patient whose organs are being harvested. For emergent operations, add the letter E after the classification Mallampati Classification Grade 3 Sedation Plan Analgesia, Amnesia, Plan communicated to team members, Discussed options with patient/fam, Discussed risks with patient/fam The patient is an appropriate candidate to undergo the planned procedure, sedation, and anesthesia. The patient immediately re-assessed prior to indication. PANTERA MCDUFFIE MD Nov 01, 2022 13:26
[~2022-11-01 14:00] MED LIST changes: -CATHETER FLUSH 10 ML SYR IVP PRN; +CINN500T PO; +HEParin (CATH LAB) 2,000 ML IV ONE; +HEParin 1000 UNIT/ML (10ML VIAL) FOR BOLUS ONE; +LIDOCAINE 1% INJ 20 ML VIAL ONE; +LUTE20CA2 PO; +MIDAZOLAM 5 MG/5 ML (VERSED) VIAL ONE; +NITRO DRIP 25000 MCG/D5W 250 ML IV ONE; +NS IV 1000 ML 1,000 ML IV ONE; +NS IV 1000 ML 1,000 ML IV SCH; +NS IV 1000 ML 1,000 ML ONE; -REGADENOSON 0.4 MG/5 ML SYR (LEXISCAN) IV ONE; +VERAPAMIL 5 MG/2 ML (CALAN) VIAL IV ONE; +fentaNYL INJ 100 MCG/2 ML AMP ONE
[2022-11-01] MEDS ORDERED: CLOPIDOGREL 300 MG (PLAVIX) TABLET PO ONE (14:28)
[2022-11-01] MEDS ORDERED: ASPIRIN 325 MG (5 GR) TABLET ONE (14:28)
[2022-11-01] MEDS ORDERED: ASPI-1238 PO (14:40)
--- NOTE | 2022-11-01 14:40 | Discharge Inst-Post CATH ---
Discharge Inst-CATH/EP Problems Reviewed?: Yes Post Cardiac Cath/EP D/C Inst Follow Up/Plan Appointment with Dr. Bhatt's office in 2 to 4 weeks <b>CARDIAC CATH/EP PROCEDURE DISCHARGE INSTRUCTIONS</b> ACTIVITY * Go Home directly and rest. * Limit activity of the leg (or wrist if it was used) for 7 days including aer obics, swimming, jogging, bicycling, etc. * Restrict stair-climbing for 7 days if possible, if not, climb up with your non-cath leg, then bring together on the same step. * Avoid lifting, pushing, pulling or excessive movement of the affected extremi ty for 7 days. * Customary sexual activity may be resumed after 2 days-use caution not to use a position that strains or causes pain to the affected extremity. * No driving for 24 hours. * NO SMOKING. * Avoid straining for bowel movements for 7 days. * Gentle walking on level ground is allowed. * Returning to work will depend on the type of procedure and the results. Your doctor will discuss this with you. CALL YOUR DOCTOR FOR ANY OF THE FOLLOWING: *If bleeding from the puncture site occurs- Apply gentle pressure to site with clean cloth and call your doctor or EMS. * If a knot or lump forms under the skin, increases in size, or causes pain. * If bruising appears to be worsening or moving further down your leg instead of disappearing. * Temperature above 101 F. CARE OF YOUR GROIN INCISION; * Bruising or purple discoloration of the skin near the puncture site is common. * You may shower only, no bathtub bathing for 5 days. Be careful to avoid slipping as your leg may feel stiff. * If a closure device was used on your femoral artery, please see the attached guide regarding care of the device and your leg. * Leave dressing on FOR 24 hours. CARE OF YOUR WRIST INCISION; * Bruising or purple discoloration of the skin near the puncture site is common. * You may shower. * DO NOT submerge wrist. * Leave dressing on FOR 24 hours. PANTERA BHATT MD Nov 01, 2022 14:40
[2022-11-01] MEDS ORDERED: NS IV 1000 ML 1,000 ML IV SCH (14:45)
--- NOTE | 2022-11-01 14:46 | Cardiac Cath Report ---
Cardiac Cath Report Physician (s)/Manufacturer Representative (s) Physician PANTERA MCDUFFIE MD Pre-Procedure Diagnosis Pre-Procedure Diagnosis: Coronary artery disease Post-Procedure Note Procedure Start Date: Nov 01, 2022 Name of Procedure: Left heart catheterization Stent to the right coronary artery Findings/Procedure Note PROCEDURE NOTE: 86 years old gentleman with extensive history of coronary artery disease, multiple intervention, had an abnormal stress test, scheduled for cardiac catheterization possible PTCA. After explaining the procedure to the patient, all pros and cons were explained, all questions were answered. The patient signed the consent and then he was placed in the cardiac catheterization laboratory. Groin was prepped in SL fashion local anesthesia was used. Sheath placed in the right radial artery, [place] catheter was advanced to the left ventricular cavity, pressure was measured, pullback LV to aorta was done, engage the right and left coronary sy stem. Patient had 80% stenosis in the mid right coronary artery, [place] right guide was advanced, BMW wire was placed distally, predilatation with 3.5 balloon then proceeded with deployment of aditya point stent 3.5 x 18 mm expanded to 3.55 mm with excellent results. 0% residual stenosis. FITZ-3 flow. At the end of the procedure the sheath was removed. Vascular band was used FINDINGS: Hemodynamics LV 109/22, end-diastolic pressure of 22 Aorta 95/57 mean of 72 ANATOMY: Left Main is free of obstructive disease Left Anterior Descending has 40% stenosis at the ostium, the stent in the proximal mid LAD are patent with good flow distally no other obstructive disease Left Circumflex has a patent stent with no significant obstructive disease Right Coronary Artery is large dominant artery with 80% stenosis in the mid right coronary artery, successful stenting using 3.5 x 18 mm with excellent results. No residual stenosis LV Gram was not done, pressure was measured PERCUTANEOUS INTERVENTION: Pre stenosis 80% Post Stenosis 0% Pre FITZ flow 3 Post FITZ flow 3 Dominance right coronary artery CONCLUSION: 80% stenosis in the mid right coronary artery successful stenting using 3.5 x 18 mm aditya point stent expanded to 3.55 with excellent result Patent stent in the proximal and mid LAD, there is a 40% ostial LAD stenosis nonobstructive disease will be treated conservatively Patent stent in the mid circumflex artery with no obstructive disease DISCUSSION AND RECOMMENDATION: Continue on medical therapy and planning to repeat stress test to evaluate for any further ischemia Anesthesia Type: Conscious Sedation Estimated blood loss (mL): 15 ml Contrast Amount: 33 ml Total Radiation Dose: 702 mGy Post-Procedure Diagnosis Post-operative diagnosis: Chest pain Coronary artery disease Hypertension Hyperlipidemia PANTERA MCDUFFIE MD Nov 01, 2022 14:46
[2022-11-02] MEDS ORDERED: ASPIRIN E.C. 81 MG (ECOTRIN) TAB PO SCH (09:00)
[2022-11-02] MEDS ORDERED: CLOPIDOGREL 75 MG (PLAVIX) TABLET PO SCH (09:00)
== END 2022-11-01 18:55 | disposition home or self-care (01) ==
LOC: CATH 14:00 → ICU 14:51 → CATH 18:55
PROVIDERS: ATTEND Internal Medicine Cardiovascular Disease
DX: I25.10 Atherosclerotic heart disease of native coronary artery without angina pectoris (principal); I10 Essential (primary) hypertension; E78.5 Hyperlipidemia, unspecified; K21.9 Gastro-esophageal reflux disease without esophagitis; E66.9 Obesity, unspecified; I82.409 Acute embolism and thrombosis of unspecified deep veins of unspecified lower extremity; E78.2 Mixed hyperlipidemia; I65.23 Occlusion and stenosis of bilateral carotid arteries; Z79.01 Long term (current) use of anticoagulants; Z79.02 Long term (current) use of antithrombotics/antiplatelets; Z68.41 Body mass index [BMI] 40.0-44.9, adult; Z87.891 Personal history of nicotine dependence; Z86.711 Personal history of pulmonary embolism
CPT/HCPCS: 71045; 80053; 80061; 81000; 85027; 85610; 85730; 87081; 93005; 93458; C1725; C1769; C1874; C1887; C1894; C9600; 36415

== ENCOUNTER 2022-11-28 12:35 | Outpatient (RCR) | payer MEDICARE, OTHER ==
[2022-11-20 10:47] LABS: BASOPHILS # (AUTO) 0.1 10^3/uL (0.0-0.1); BASOPHILS % (AUTO) 1 % (0-10); EOSINOPHILS # (AUTO) 0.4 10^3/uL (0.0-0.3); EOSINOPHILS % (AUTO) 4 % (0-10); HEMATOCRIT 41 % (40-54); LYMPHOCYTES # (AUTO) 1.1 10^3/uL (1.0-4.0); LYMPHOCYTES % (AUTO) 12 % (12-44); MEAN CORPUSCULAR HEMOGLOBIN 30 pg (25-34); MEAN CORPUSCULAR HGB CONC 32 g/dL (32-36); MEAN CORPUSCULAR VOLUME 95 fL (80-99); MEAN PLATELET VOLUME 9.9 fL (9.0-12.2); MONOCYTES # (AUTO) 1.2 10^3/uL (0.0-1.0); MONOCYTES % (AUTO) 13 % (0-12); NEUTROPHILS # (AUTO) 6.4 10^3/uL (1.8-7.8); NEUTROPHILS % (AUTO) 70 % (42-75); PLATELET COUNT 217 10^3/uL (130-400); WHITE BLOOD COUNT 9.2 10^3/uL (4.3-11.0)
[2022-11-20 11:06] LABS: ALBUMIN 3.8 GM/DL (3.2-4.5); BILIRUBIN,TOTAL 0.5 MG/DL (0.1-1.0); CALCIUM 9.6 MG/DL (8.5-10.1); CREATININE SERUM 1.46 MG/DL (0.60-1.30); TOTAL PROTEIN 7.1 GM/DL (6.4-8.2)
[~2022-11-28 12:35] MED LIST changes: -HEParin (CATH LAB) 2,000 ML IV ONE; -HEParin 1000 UNIT/ML (10ML VIAL) FOR BOLUS ONE; -LIDOCAINE 1% INJ 20 ML VIAL ONE; -MIDAZOLAM 5 MG/5 ML (VERSED) VIAL ONE; -NITRO DRIP 25000 MCG/D5W 250 ML IV ONE; -NS IV 1000 ML 1,000 ML IV ONE; -NS IV 1000 ML 1,000 ML IV SCH; -NS IV 1000 ML 1,000 ML ONE; -VERAPAMIL 5 MG/2 ML (CALAN) VIAL IV ONE; -fentaNYL INJ 100 MCG/2 ML AMP ONE
[2022-12-09] MEDS ORDERED: ACHD5005 PO (20:34)
== END 2022-12-08 | disposition home or self-care (01) ==
LOC: ONC 12:35
PROVIDERS: ATTEND Internal Medicine Hematology & Oncology
DX: C21.0 Malignant neoplasm of anus, unspecified (principal); E66.9 Obesity, unspecified; J44.9 Chronic obstructive pulmonary disease, unspecified; I10 Essential (primary) hypertension; E78.2 Mixed hyperlipidemia; K21.9 Gastro-esophageal reflux disease without esophagitis; F17.208 Nicotine dependence, unspecified, with other nicotine-induced disorders
CPT/HCPCS: 36591; 80053; 85025

== ENCOUNTER 2022-12-09 16:27 | Emergency (ER) | payer MEDICARE, OTHER ==
[~2022-12-09] VITALS: Ht 172 cm; Wt 121.0 kg
[2022-12-09] MEDS ORDERED: LACTATED RINGERS 1,000 ML IV ONE (18:00)
[2022-12-09] MEDS ORDERED: TETANUS,DIPTH,PERTUSS P/F (BOOSTRIX) 0.5 ML VIAL IM ONE (18:00)
[2022-12-09] MEDS ORDERED: ONDANSETRON 4 MG/2 ML (SDV) Z0FRAN IVP ONE (18:00)
[2022-12-09 18:15] LABS: BASOPHILS # (AUTO) 0.1 10^3/uL (0.0-0.1); BASOPHILS % (AUTO) 1 % (0-10); EOSINOPHILS # (AUTO) 0.2 10^3/uL (0.0-0.3); EOSINOPHILS % (AUTO) 2 % (0-10); HEMATOCRIT 39 % (40-54); HEMOGLOBIN 12.6 g/dL (13.3-17.7); LYMPHOCYTES # (AUTO) 1.3 10^3/uL (1.0-4.0); LYMPHOCYTES % (AUTO) 11 % (12-44); MEAN CORPUSCULAR HEMOGLOBIN 30 pg (25-34); MEAN CORPUSCULAR HGB CONC 32 g/dL (32-36); MEAN CORPUSCULAR VOLUME 94 fL (80-99); MEAN PLATELET VOLUME 9.8 fL (9.0-12.2); MONOCYTES # (AUTO) 1.4 10^3/uL (0.0-1.0); MONOCYTES % (AUTO) 11 % (0-12); NEUTROPHILS # (AUTO) 9.4 10^3/uL (1.8-7.8); NEUTROPHILS % (AUTO) 75 % (42-75); PLATELET COUNT 233 10^3/uL (130-400); WHITE BLOOD COUNT 12.4 10^3/uL (4.3-11.0)
[2022-12-09 18:30] LABS: ERYTHROCYTE SEDIMENTATION RATE 45 MM/HR (0-30)
--- NOTE | 2022-12-09 18:34 | ED Fall/Injury ---
General Chief Complaint: Trauma-Non Activation Stated Complaint: LEFT SHOLDER PAIN Nursing Triage Note: SEE TRIAGE Source: patient History of Present Illness Date Seen by Provider: Dec 09, 2022 Time Seen by Provider: 17:47 Initial Comments PT ARRIVES VIA POV FROM HOME WITH -- PUT A GAIT BELT ON HIM PRIOR TO ARRIVAL PT STATES THAT AROUND 1515 TODAY, HE WAS WORKING OUTSIDE AND FELL FACE FIRST ONTO THE STREET / PAVEMENT HE C/O PAIN TO HIS LEFT SHOULDER AND UPPER ARM C/O PAIN ALL ACROSS HIS CHEST AND RIBS HE FEELS A LITTLE SHORT OF BREATH C/O PAIN TO CHIN/JAW AREA AND THE LEFT SIDE OF HIS FACE. --HAS AN ABRASION TO HIS CHIN HE HAS ABRASIONS TO BOTH OF HIS KNEES AND HIS LEFT KNEE HURTS A LITTLE C/O NAUSEA, NO VOMITING NO NECK OR BACK PAIN NO PARESTHESIAS OR MOTOR DEFICITS HE DENIES LOSS OF CONSCIOUSNESS NO HEADACHE DENIES DIZZINESS DENIES ANY NEW VISION CHANGES--HE LOST THE RIGHT LENS OUT OF HIS GLASSES EARLIER THIS WEEK, SO HAS BEEN GOING AROUND WITH ONLY ONE LENS IN HIS GLASSES. HE HAS MACULAR DEGENERATION AND IS SCHEDULED TO HAVE INJECTIONS IN HIS EYE THIS WEEK. HE IS ON ASPIRIN AND ELIQUIS HE HAS HISTORY OF CAD WITH 5 STENTS HE HAS HISTORY OF ANAL CANCER--NO LONGER RECEIVING TREATMENT. Location Injury Occurred: HOME ON STREET PCP: DR. SÁNCHEZ SOUND EFFECTS PERSON: DR. MCDUFFIE Allergies and Home Medications Allergies Coded Allergies: lisinopril (Verified Allergy, Unknown, 12/02/19) Uncoded Allergies: ENVIRONMENTAL (Allergy, Unknown, 11/02/15) Patient Home Medication List Acetaminophen (Tylenol Extra Strength) 500 Mg Tablet, 1,000 MG PO DAILY, (Reported) Entered as Reported by: ORTIZ ALEXANDRE on 08/24/21 1058 Acetaminophen/Diphenhydramine (Tylenol Pm Ex-Strength Caplet) 1 Each Tablet, 2 EACH PO HS, (Reported) Entered as Reported by: ORTIZ ALEXANDRE on 08/24/21 1058 Albuterol Sulfate (Ventolin Hfa) 1 Puff Puff, 2 PUFF IH Q4H PRN for SHORTNESS OF BREATH, (Reported) Entered as Reported by: ORTIZ ALEXANDRE on 08/24/21 1058 Apixaban (Eliquis) 5 Mg Tablet, 5 MG PO BID, (Reported) Entered as Reported by: ORTIZ ALEXANDRE on 08/24/21 1058 Aspirin (Aspirin EC) 81 Mg Tablet.dr, 81 MG PO DAILY Prescribed by: PANTERA MCDUFFIE on 11/01/22 1440 Atorvastatin Calcium (Atorvastatin Calcium) 10 Mg Tablet, 10 MG PO HS, (Reported) Entered as Reported by: ORTIZ ALEXANDRE on 08/24/21 1058 Cetirizine HCl (Cetirizine HCl) 10 Mg Tablet, 10 MG PO DAILY, (Reported) Entered as Reported by: ORTIZ ALEXANDRE on 08/24/21 1058 Cinnamon Bark Extract (Cinnamon Extract) 500 Mg Tablet, 500 MG PO DAILY, (Reported) Entered as Reported by: ZEKE PHIPPS on 11/01/22 1254 Clopidogrel Bisulfate (Clopidogrel) 75 Mg Tablet, 75 MG PO DAILY Prescribed by: PANTERA MCDUFFIE on 08/25/21 0603 Escitalopram Oxalate (Lexapro) 10 Mg Tablet, 10 MG PO HS, (Reported) Entered as Reported by: ORTIZ ALEXANDRE on 08/24/21 1058 Fluticasone Propionate (Flonase Allergy Relief) 9.9 Ml [place].susp, 1 SPRAY NS DAILY PRN for ALLERGIES, (Reported) Entered as Reported by: ORTIZ ALEXANDRE on 08/24/21 1058 Fluticasone/Salmeterol (Advair 250-50 Diskus) 1 Each Blst.w.dev, 1 EACH IH BID, (Reported) Entered as Reported by: ORTIZ ALEXANDRE on 08/24/21 105 Garlic (Garlic) 1 Each Tablet, 2 EACH PO DAILY, (Reported) Entered as Reported by: ORTIZ ALEXANDRE on 08/24/21 1058 Hydrochlorothiazide (Hydrochlorothiazide) 25 Mg Tablet, 25 MG PO DAILY, (Reported) Entered as Reported by: ORTIZ ALEXANDRE on 08/24/21 1058 Lorazepam (Ativan) 1 Mg Tablet, 1 MG PO HS, (Reported) Entered as Reported by: ORTIZ ALEXANDRE on 08/24/21 1102 Lutein (Lutein) 20 Mg Capsule, 20 MG PO DAILY, (Reported) Entered as Reported by: ZEKE PHIPPS on 11/01/22 1254 Melatonin (Melatonin) 10 Mg Tablet, 10 MG PO HS, (Reported) Entered as Reported by: ORTIZ ALEXANDRE on 08/24/21 105 Metoprolol Succinate (Metoprolol Succinate) 25 Mg Tab.er.24h, 25 MG PO DAILY, (Reported) Entered as Reported by: ORTIZ ALEXANDRE on 08/24/21 105 Montelukast Sodium (Montelukast Sodium) 10 Mg Tablet, 10 MG PO DAILY, (Reported) Entered as Reported by: ORTIZ ALEXANDRE on 08/24/21 105 Pantoprazole Sodium (Protonix) 40 Mg Tablet.dr, 40 MG PO DAILY Prescribed by: PANTERA MCDUFFIE on 08/25/21 0603 Pramipexole Di-HCl (Mirapex) 1 Mg Tablet, 1 MG PO HS, (Reported) Entered as Reported by: ORTIZ ALEXANDRE on 08/24/21 105 Tamsulosin HCl (Flomax) 0.4 Mg Cap, 0.4 MG PO DAILY, (Reported) Entered as Reported by: ORTIZ ALEXANDRE on 08/24/21 105 Review of Systems Review of Systems Constitutional: no symptoms reported Eyes: See HPI Ears, Nose, Mouth, Throat: no symptoms reported Respiratory: see HPI, short of breath Cardiovascular: see HPI Gastrointestinal: see HPI, abdominal pain, nausea Genitourinary: no symptoms reported Musculoskeletal: see HPI Skin: see HPI Psychiatric/Neurological: No Symptoms Reported Past Bhqgbwo-Xpbkkh-Zrvmuy Hx Patient Social History Tobacco Use?: No Substance use?: No Alcohol Use?: No Pt feels they are or have been: No Immunizations Up To Date Tetanus Booster (TDap): Less than 5yrs PED Vaccines UTD: Yes Influenza Vaccine Up-to-Date: Yes; Up-to-Date First/Initial COVID19 Vaccinat: YES Second COVID19 Vaccination Dev: YES Third COVID19 Vaccination Date: YES Seasonal Allergies Seasonal Allergies: Yes Past Medical History Surgery/Hospitalization HX: 5 STENTS, LENS IMPLANTS,GALL BLADDER, APPY, CHOLEAR IMPLANT, CAROTID SURG L SIDE. BACK SURG. ANAL CANCER. HTN, Surgeries: Yes (CARPAL TUNNEL, back sx, cochlear implant, thumb sx,port) Appendectomy, Bowel Surgery, Cardiac, Coronary Stent, Ear Surgery, Eye Surgery, Gallbladder, Orthopedic, Vascular Surgery Respiratory: Yes (cough) Pulmonary Embolism, Sleep Apnea, COPD Currently Using CPAP: Yes Currently Using BIPAP: No Cardiac: Yes Chronic Edema/Swelling, Coronary Artery Disease, High Cholesterol, Hypertension, Irregular Heartbeat Neurological: Yes Stroke Reproductive Disorders: No Sexually Transmitted Disease: No HIV/AIDS: No Genitourinary: No Gastrointestinal: Yes (dysphagia, anal squamous cell ca) Gastroesophageal Reflux, Polyps Musculoskeletal: Yes (ARTHRITIS/BULGING DISC/SCIATIC NERVE PROBLEMS;BACK SURGERY) Degenerate Disk Disease, Arthritis, Chronic Back Pain Endocrine: No HEENT: Yes (COCHLEAR IMPLANT) Cataract, Macular Degeneration Loss of Vision: Bilateral Hearing Impairment: Hard of Hearing, Bilateral Hearing Aide Cancer: Yes Rectal, Skin Did You Recieve Any Treatments: Yes What Type of Treatment Did You: Chemotherapy, Radiation, Surgical Intervention Psychosocial: No Integumentary: No Blood Disorders: No Adverse Reaction/Blood Tranf: No Family Medical History No Pertinent Family Hx Physical Exam Vital Signs Vital Signs - First Documented 12/09/22 16:40 Temp 36.6 Pulse 67 Resp 16 B/P (MAP) 126/66 (86) Pulse Ox 94 Capillary Refill : Less Than 3 Seconds Height, Weight, BMI Height: 5'8.00" Weight: 269lbs. 0.0oz. 122.970807ds; 40.00 BMI Method:Stated General Appearance: WD/WN, no apparent distress, obese, other (HOLDING LEFT ARM WITH HIS RIGHT) HEENT: PERRL/EOMI, other (COCHLEAR IMPLANT ON LEFT. ABRASION NOTED TO CHIN / FL DLINE, WITH MILD MANDIBULAR TENDERNESS. NO TRISMUS) Neck: non-tender Cardiovascular: normal peripheral pulses, regular rate, rhythm, no murmur Respiratory: normal breath sounds, no respiratory distress, no accessory muscle use, other (DIFFUSE ANTERIOR AND LATERAL CHEST TENDERNESS) Gastrointestinal: soft; No guarding, No rebound; tenderness (EPIGASTRIC AND RUQ TENDERNESS) Back: no vertebral tenderness, CVA tenderness (R), CVA tenderness (L) Extremities: normal capillary refill, pedal edema (1+ BILATERALLY), other (DIFFUSE TENDERNESS TO LEFT SHOULDER AND HUMERUS. DISTAL MOTOR/SENSORY/VASCULAR INTACT. 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, no motor/sensory deficits, alert, normal mood/affect, oriented x 3 Skin: normal color, warm/dry, other ( ABOVE) Brittany Coma Score Best Eye Response: (4) Open Spontaneously Best Verbal Response: (5) Oriented Best Motor Response: (6) Obeys Commands [place] Total: 15 Progress/Results/Core Measures Results/Orders Lab Results Laboratory Tests Test 12/09/22 18:08 Range/Units White Blood Count 12.4 H 4.3-11.0 10^3/uL Red Blood Count 4.18 L 4.30-5.52 10^6/uL Hemoglobin 12.6 L 13.3-17.7 g/dL Hematocrit 39 L 40-54 % Mean Corpuscular Volume 94 80-99 fL Mean Corpuscular Hemoglobin 30 25-34 pg Mean Corpuscular Hemoglobin Concent 32 32-36 g/dL Red Cell Distribution Width 13.7 10.0-14.5 % Platelet Count 233 130-400 10^3/uL Mean Platelet Volume 9.8 9.0-12.2 fL Immature Granulocyte % (Auto) 1 % Neutrophils (%) (Auto) 75 42-75 % Lymphocytes (%) (Auto) 11 L 12-44 % Monocytes (%) (Auto) 11 0-12 % Eosinophils (%) (Auto) 2 0-10 % Basophils (%) (Auto) 1 0-10 % Neutrophils # (Auto) 9.4 H 1.8-7.8 10^3/uL Lymphocytes # (Auto) 1.3 1.0-4.0 10^3/uL Monocytes # (Auto) 1.4 H 0.0-1.0 10^3/uL Eosinophils # (Auto) 0.2 0.0-0.3 10^3/uL Basophils # (Auto) 0.1 0.0-0.1 10^3/uL Immature Granulocyte # (Auto) 0.1 0.0-0.1 10^3/uL Erythrocyte Sedimentation Rate 45 H 0-30 MM/HR Prothrombin Time 16.1 H 12.2-14.7 SEC INR Comment 1.2 0.8-1.4 Activated Partial Thromboplast Time 35 24-35 SEC D-Dimer 4.53 H 0.00-0.49 UG/ML Sodium Level 142 135-145 MMOL/L Potassium Level 4.1 3.6-5.0 MMOL/L Chloride Level 105 98-107 MMOL/L Carbon Dioxide Level 25 21-32 MMOL/L Anion Gap 12 5-14 MMOL/L Blood Urea Nitrogen 26 H 7-18 MG/DL Creatinine 1.76 H 0.60-1.30 MG/DL Estimat Glomerular Filtration Rate 37 BUN/Creatinine Ratio 15 Glucose Level 123 H 70-105 MG/DL Calcium Level 9.7 8.5-10.1 MG/DL Corrected Calcium 9.7 8.5-10.1 MG/DL Magnesium Level 2.2 1.6-2.4 MG/DL Total Bilirubin 0.4 0.1-1.0 MG/DL Aspartate Amino Transf (AST/SGOT) 25 5-34 U/L Alanine Aminotransferase (ALT/SGPT) 28 0-55 U/L Alkaline Phosphatase 67 40-136 U/L Total Creatine Kinase 139 30-200 U/L Creatine Kinase MB 4.1 <6.6 NG/ML Myoglobin 184.1 H 10.0-92.0 NG/ML Troponin I < 0.028 <0.028 NG/ML C-Reactive Protein High Sensitivity 4.74 H 0.00-0.50 MG/DL Total Protein 7.2 6.4-8.2 GM/DL Albumin 4.0 3.2-4.5 GM/DL Amylase Level 47 25-125 U/L Lipase 30 8-78 U/L My Orders Orders - ALVERTO ROE DO Ct Head/Face/Cervical Wo (12/09/22 17:53) Ct Thoracic/Lumbar Spine Wo (12/09/22 17:53) Ekg Tracing (12/09/22 17:53) O2 (12/09/22 17:53) Monitor-Rhythm Ecg Trace Only (12/09/22 17:53) Chest 1 View, Ap/Pa Only (12/09/22 17:53) Shoulder, Left, 3 Views (12/09/22 17:53) Humerus, Left, 2 Views (12/09/22 17:53) Pelvis 1 To 2 Views (12/09/22 17:53) Amylase (12/09/22 17:53) Cbc With Automated Diff (12/09/22 17:53) Comprehensive Metabolic Panel (12/09/22 17:53) Creatine Kinase (12/09/22 17:53) Creatine Kinase Mb (12/09/22 17:53) Hs C Reactive Protein (12/09/22 17:53) Fibrin Degradation Products (12/09/22 17:53) Drug Screen Stat (Urine) (12/09/22 17:53) Lipase (12/09/22 17:53) Magnesium (12/09/22 17:53) Protime With Inr (12/09/22 17:53) Partial Thromboplastin Time (12/09/22 17:53) Ua Culture If Indicated (12/09/22 17:53) Erythrocyte Sedimentation Rate (12/09/22 17:53) Myoglobin Serum (12/09/22 17:53) Troponin I En (12/09/22 17:53) Ed Iv/Invasive Line Start (12/09/22 17:53) Lactated Ringers (Lr 1000 Ml Iv Solution (12/09/22 18:00) Cervical Collar (12/09/22 17:53) Ct Chest/Abdomen/Pelvis W (12/09/22 18:00) Ondansetron Injection (Zofran Injectio (12/09/22 18:00) Knee, Bilateral, W/[place] 4v. (12/09/22 18:00) Dipht,Pertuss(Acell),Tet Adult (Boostrix (12/09/22 18:00) Iohexol Injection (Omnipaque 350 Mg/Ml 1 (12/09/22 18:45) Received Contrast (Hold Metformin- Contr (12/09/22 18:45) Sodium Chloride Flush (Catheter Flush Sy (12/09/22 18:45) Ns (Ivpb) (Sodium Chloride 0.9% Ivpb Bag (12/09/22 18:45) Fentanyl Inj (Sublimaze Injection) (12/09/22 20:15) Shoulder Immoblizer (12/09/22 20:26) Fentanyl Inj (Sublimaze Injection) (12/09/22 20:30) Rx-Hydrocodone/Apap 5-325 Mg (Rx-Vicodin (12/09/22 20:30) Medications Given in ED Current Medications Medications Dose Ordered Sig/Erica Route Start Time Stop Time Status Last Admin Dose Admin Diphtheria/ Tetanus/Acell Pertussis 0.5 ml ONCE ONCE IM 12/09/22 18:00 12/09/22 18:03 DC 12/09/22 18:13 0.5 ML Fentanyl Citrate 50 mcg ONCE ONCE IVP 12/09/22 20:15 12/09/22 20:16 DC 12/09/22 20:09 50 MCG Iohexol 100 ml ONCE ONCE IV 12/09/22 18:45 12/09/22 18:58 DC 12/09/22 19:00 100 ML Lactated Ringer's 1,000 ml @ 0 mls/hr Q0M ONCE IV 12/09/22 18:00 12/09/22 18:01 DC 12/09/22 18:13 0 MLS/HR Ondansetron HCl 4 mg ONCE ONCE IVP 12/09/22 18:00 12/09/22 18:03 DC 12/09/22 18:13 4 MG Sodium Chloride 10 ml NEEDED PRN IV 12/09/22 18:45 12/09/22 19:00 10 ML Sodium Chloride 100 ml ONCE ONCE IV 12/09/22 18:45 12/09/22 18:58 DC 12/09/22 19:00 100 ML Vital Signs/I&O 12/09/22 16:40 Temp 36.6 Pulse 67 Resp 16 B/P (MAP) 126/66 (86) Pulse Ox 94 Blood Pressure Mean: 86 Progress Progress Note : Progress Note PLACED IN CERVICAL COLLAR AND MOVED TO A ROOM WITH A BED PT DISROBED AND LAID FLAT. GIVEN: -IV FLUIDS -ZOFRAN -DPT VACCINE. Initial ECG Impression Date: Dec 09, 2022 Initial ECG Impression Time: 18:12 Initial ECG Rate: 56 Initial ECG Rhythm: Normal Sinus Comment INTERPRETED BY ME Diagnostic Imaging Comments CT SCANS--ALL PER RADIOLOGIST REPORTS AT [address] CT HEAD / MAXILLOFACIALS / CERVICAL SPINE--- FINDINGS: Head: There is streak artifact in the lower left aspect of the skull from cochlear implant. No hyperdense hemorrhage or space-occupying mass. No hydrocephalus or midline shift. No evidence of territorial infarct. Global atrophy is present. Basilar cisterns are patent. No focal scalp swelling. No skull fracture. Left mastoidectomy with associated cochlear implant. Face: No fracture of the nasal bones, osseous nasal septum or anterior nasal spine. The orbits, zygomatic arches, maxillary sinus barrientos, alveolar ridge of the maxilla and pterygoid plates are all intact. Normal alignment of the temporal mandibular joints. No acute mandibular fracture. Paranasal sinuses are clear. 1 bilateral lens surgery. No globe rupture. Cervical spine: No acute fracture or traumatic malalignment. No high-grade spinal canal narrowing. Airway is patent. No cervical lymphadenopathy. Visualized thyroid is normal. IMPRESSION: 1. No acute intracranial process or skull fracture. 2. No acute fracture in the mid face or mandible. 3. No acute fracture or traumatic malalignment of the cervical spine. CT THORACIC / LUMBAR SPINE-- FINDINGS: Thoracic:No acute fracture. Alignment is normal. No high-grade spinal canal stenosis. Visualized aspects of posterior ribs are intact. Please see CT chest report for more complete details of the visualized lungs. Lumbar:No acute fracture within the lumbar spine or sacrum. Prior vertebral augmentation of L2 and L3 with kyphoplasty. No sites of high-grade spinal canal stenosis. Grade 1 anterolisthesis is chronic in nature and due to pars defects. Please see CT abdomen and pelvis report for details of the visualized portions of the abdomen. IMPRESSION: 1. No acute fracture in the thoracic or lumbar spine. 2. 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 3. Old fractures of L1-L2 and L3 have undergone kyphoplasties. CT CHEST / ABDOMEN / PELVIS---COMPARISON: None available. FINDINGS: Chest: Normal thyroid. No subclavicular axillary lymphadenopathy. No evidence of mediastinal hemorrhage. No mediastinal or hilar lymphadenopathy. Normal heart size without pericardial effusion. Normal caliber thoracic aorta without evidence of acute traumatic injury. No pleural effusion or pneumothorax. No pulmonary consolidations to indicate laceration or contusion. Partially imaged surgical neck fracture in the proximal left humerus. No acute fracture within the ribs. No sternal fracture. Right IJ Port-A-Cath. Abdomen and pelvis: No free intraperitoneal air or fluid. The liver and spleen enhance normally without evidence of subcapsular hematoma or laceration. Cholecystectomy. The adrenals and pancreas are normal. The kidneys enhance symmetrically without evidence of traumatic injury. Delayed phase imaging demonstrates opacification of normal caliber ureters and the urinary bladder without evidence of ureteral injury or bladder rupture. No dilated loops of bowel. Normal caliber abdominal aorta without evidence of retroperitoneal hemorrhage. No abdominal or pelvic lymphadenopathy. No acute fracture of the pelvis or proximal femurs. IMPRESSION: CT CHEST 1. No acute intrathoracic injury. 2. Incompletely imaged comminuted fracturing of the proximal left humerus. Left shoulder radiographs are recommended for further assessment. CT ABDOMEN and PELVIS 1. No acute traumatic injury in the abdomen and pelvis. XRAYS--PER RADIOLOGIST REPORTS AT 2024 Reviewed: Reviewed by Me Departure Impression Primary Impression: Fall from standing Additional Impressions: Minor head injury without loss of consciousness Facial contusion CERVICAL SPINE STRAIN CLOSED COMMINUTED LEFT PROXIMAL HUMERUS FRACTURE BILATERAL KNEE CONTUSIONS Abrasions of multiple sites Disposition: HOME, SELF-CARE Condition: Stable Departure-Patient Inst. Decision time for Depature: 20:30 Referrals: JENNA SÁNCHEZ MD NO,LOCAL PHYSICIAN (PCP) Primary Care Physician EMILIA ALEJO MD, MICHAEL P MD Patient Instructions: CHEST CONTUSION, General Trauma, Adult ED, Minor Head Injury, Adult ED, Preventing Falls ED, Upper Arm Fracture ED Add. Discharge Instructions: WEAR SHOULDER IMMOBILIZER AT ALL TIMES ICE TO SORE AREAS AT 20 MINUTE INTERVALS. FOLLOW UP WITH DR. CASSIDY OR DR. ALEJO NEXT WEEK FOR FURTHER CARE--CALL Sunday TO SCHEDULE AN APPOINTMENT All discharge instructions reviewed with patient and/or family. Voiced under standing. Scripts Hydrocodone/Acetaminophen (Hydrocodone-Acetamin 5-325 mg) 5 Mg-325 Mg Tablet 1 EACH PO Q4-6 HOURS PRN for PAIN, #20 TAB Prov: ALVERTO ROE DO 12/09/22 ALVERTO ROE DO Dec 09, 2022 18:34
[2022-12-09 18:41] LABS: CHLORIDE 105 MMOL/L (98-107); POTASSIUM 4.1 MMOL/L (3.6-5.0); SODIUM 142 MMOL/L (135-145)
[2022-12-09 18:42] LABS: AMYLASE 47 U/L (25-125); CALCIUM 9.7 MG/DL (8.5-10.1)
[2022-12-09 18:43] LABS: GLUCOSE 123 MG/DL (70-105); TOTAL PROTEIN 7.2 GM/DL (6.4-8.2)
[2022-12-09 18:44] LABS: CARBON DIOXIDE 25 MMOL/L (21-32)
[2022-12-09 18:45] LABS: BILIRUBIN,TOTAL 0.4 MG/DL (0.1-1.0)
[2022-12-09] MEDS ORDERED: CATHETER FLUSH 10 ML SYR IV PRN (18:45)
[2022-12-09] MEDS ORDERED: HOLD METFORMIN - RECEIVED CONTRAST 20 ML VIAL IV SCH (18:45)
[2022-12-09] MEDS ORDERED: NS 100 ML (IVPB) BAG IV ONE (18:45)
[2022-12-09] MEDS ORDERED: IOHEXOL 350 MG/ML 100 ML (OMNIPAQUE 350) VIAL IV ONE (18:45)
[2022-12-09 18:46] LABS: ALKALINE PHOSPHATASE 67 U/L (40-136)
[2022-12-09 18:47] LABS: CREATININE SERUM 1.76 MG/DL (0.60-1.30); GFR ESTIMATED 37
[2022-12-09 18:48] LABS: BUN/CREATININE RATIO 15
[2022-12-09 18:50] LABS: ALANINE AMINOTRANSFERASE 28 U/L (0-55); FIBRIN DEGRADATION PRODUCTS 4.53 UG/ML (0.00-0.49); INR 1.2 (0.8-1.4); MAGNESIUM 2.2 MG/DL (1.6-2.4); PROTHROMBIN TIME PATIENT 16.1 SEC (12.2-14.7)
[2022-12-09 18:51] LABS: CREATINE KINASE 139 U/L (30-200); LIPASE 30 U/L (8-78)
[2022-12-09 18:58] LABS: CREATINE KINASE MB 4.1 NG/ML (<6.6)
--- NOTE | 2022-12-09 19:13 | Diagnostic Imaging Report ---
PROCEDURE: CT head, face, cervical spine without contrast. TECHNIQUE: Multiple contiguous axial images were obtained through the head, neck, and facial bones without the use of intravenous contrast. Sagittal and coronal reformations through the cervical spine and facial bones were also performed. All CT scans use one or more of the following dose optimizing techniques: automated exposure control, MA and/or KvP adjustment based on a patient size and exam type, or iterative reconstruction. INDICATION: Head and face and neck trauma COMPARISON: None available. FINDINGS: Head: There is streak artifact in the lower left aspect of the skull from cochlear implant. No hyperdense hemorrhage or space-occupying mass. No hydrocephalus or midline shift. No evidence of territorial infarct. Global atrophy is present. Basilar cisterns are patent. No focal scalp swelling. No skull fracture. Left mastoidectomy with associated cochlear implant. Face: No fracture of the nasal bones, osseous nasal septum or anterior nasal spine. The orbits, zygomatic arches, maxillary sinus barrientos, alveolar ridge of the maxilla and pterygoid plates are all intact. Normal alignment of the temporal mandibular joints. No acute mandibular fracture. Paranasal sinuses are clear. 1 bilateral lens surgery. No globe rupture. Cervical spine: No acute fracture or traumatic malalignment. No high-grade spinal canal narrowing. Airway is patent. No cervical lymphadenopathy. Visualized thyroid is normal. IMPRESSION: 1. No acute intracranial process or skull fracture. 2. No acute fracture in the mid face or mandible. 3. No acute fracture or traumatic malalignment of the cervical spine. Dictated by: Dictated on workstation # [id number]
--- NOTE | 2022-12-09 19:33 | Diagnostic Imaging Report ---
CT THORACIC/LUMBAR SPINE WO INDICATION: Back pain after trauma. COMPARISON: None available. TECHNIQUE: CT imaging of the thoracic and lumbar spine was performed without contrast. Automatic exposure controls were utilized for dose optimization. FINDINGS: Thoracic:No acute fracture. Alignment is normal. No high-grade spinal canal stenosis. Visualized aspects of posterior ribs are intact. Please see CT chest report for more complete details of the visualized lungs. Lumbar:No acute fracture within the lumbar spine or sacrum. Prior vertebral augmentation of L2 and L3 with kyphoplasty. No sites of high-grade spinal canal stenosis. Grade 1 anterolisthesis is chronic in nature and due to pars defects. Please see CT abdomen and pelvis report for details of the visualized portions of the abdomen. IMPRESSION: 1. No acute fracture in the thoracic or lumbar spine. 2. 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 3. Old fractures of L1-L2 and L3 have undergone kyphoplasties. Dictated by: Dictated on workstation # [id number]
--- NOTE | 2022-12-09 19:38 | Diagnostic Imaging Report ---
PROCEDURE: CT chest, abdomen, and pelvis with contrast. TECHNIQUE: Multiple contiguous axial images were obtained through the chest, abdomen, and pelvis after the administration of intravenous contrast. Auto Exposure Controls were utilized during the CT exam to meet ALARA standards for radiation dose reduction. INDICATION: Trauma COMPARISON: None available. FINDINGS: Chest: Normal thyroid. No subclavicular axillary lymphadenopathy. No evidence of mediastinal hemorrhage. No mediastinal or hilar lymphadenopathy. Normal heart size without pericardial effusion. Normal caliber thoracic aorta without evidence of acute traumatic injury. No pleural effusion or pneumothorax. No pulmonary consolidations to indicate laceration or contusion. Partially imaged surgical neck fracture in the proximal left humerus. No acute fracture within the ribs. No sternal fracture. Right IJ Port-A-Cath. Abdomen and pelvis: No free intraperitoneal air or fluid. The liver and spleen enhance normally without evidence of subcapsular hematoma or laceration. Cholecystectomy. The adrenals and pancreas are normal. The kidneys enhance symmetrically without evidence of traumatic injury. Delayed phase imaging demonstrates opacification of normal caliber ureters and the urinary bladder without evidence of ureteral injury or bladder rupture. No dilated loops of bowel. Normal caliber abdominal aorta without evidence of retroperitoneal hemorrhage. No abdominal or pelvic lymphadenopathy. No acute fracture of the pelvis or proximal femurs. IMPRESSION: CT CHEST 1. No acute intrathoracic injury. 2. Incompletely imaged comminuted fracturing of the proximal left humerus. Left shoulder radiographs are recommended for further assessment. CT ABDOMEN and PELVIS 1. No acute traumatic injury in the abdomen and pelvis. Dictated by: Dictated on workstation # [id number]
--- NOTE | 2022-12-09 20:04 | Diagnostic Imaging Report ---
CHEST 1 VIEW, AP/PA ONLY Indication: Chest trauma Comparison: CT chest performed earlier same day Findings: No focal airspace disease in the visualized lungs. No pleural effusion or pneumothorax. Normal cardiomediastinal silhouette. Right subclavian Port-A-Cath. Impression: 1. No acute cardiopulmonary process by portable radiography. Dictated by: Dictated on workstation # [id number]
--- NOTE | 2022-12-09 20:09 | Diagnostic Imaging Report ---
SHOULDER, LEFT, 3 VIEWS INDICATION: Left shoulder trauma COMPARISON: None available. TECHNIQUE: 3 views of the left shoulder. FINDINGS: There is an acute mildly impacted fracture of the surgical neck. No angulation of the humeral shaft. The fracture extends from the base of the greater tuberosity which is not significantly displaced. Glenoid is intact. AC joint alignment is normal. IMPRESSION: 1. Acute mildly impacted fracture of the surgical neck, as well as a nondisplaced fracture in the greater tuberosity. Dictated by: Dictated on workstation # [id number]
[2022-12-09] MEDS ORDERED: fentaNYL INJ 100 MCG/2 ML AMP IVP ONE ×2 (20:15→20:30)
--- NOTE | 2022-12-09 20:17 | Diagnostic Imaging Report ---
HUMERUS, LEFT, 2 VIEWS INDICATION: Trauma COMPARISON: None available. TECHNIQUE: 2 views of the left humerus. FINDINGS: Acute fracture in the proximal humerus is detailed on the shoulder report. A triangular 3.3 x 1.3 cm foreign body is potentially in the posterior soft tissues in the mid upper arm. A smaller 0.5 cm hyperdense focus may represent a additional foreign body. No fracture in distal humerus. IMPRESSION: 1. Acute proximal humeral fractures detailed in the shoulder report. 2. Potential 2 radiopaque foreign bodies in the posterior soft tissues of the upper arm. Dictated by: Dictated on workstation # [id number]
--- NOTE | 2022-12-09 20:21 | Diagnostic Imaging Report ---
PELVIS 1 TO 2 VIEWS INDICATION: Trauma COMPARISON: CT abdomen pelvis performed concurrently TECHNIQUE: AP view of the pelvis. FINDINGS: No diastases of the symphysis pubis or SI joints. No hip dislocation. No acute acute fracture within the pelvis is appreciated. IMPRESSION: No acute displaced fracture or traumatic malalignment. Dictated by: Dictated on workstation # [id number]
--- NOTE | 2022-12-09 20:23 | Diagnostic Imaging Report ---
KNEE, BILATERAL, W/SUNRISE 4V. INDICATION: Bilateral knee pain after trauma. COMPARISON: None available. TECHNIQUE: 4 views of each knee for total of 8 views. FINDINGS: No acute fracture on either side. No traumatic subluxation. No trochlear dysplasia. 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 No knee joint effusion or mineralized loose bodies. Vascular calcification is are noted. IMPRESSION: No acute fracture about either knee. Dictated by: Dictated on workstation # [id number]
[2022-12-09] MEDS ORDERED: ACHD5005 PO (20:34)
[2022-12-09 21:16] VITALS: BP 101/65
== END 2022-12-09 21:16 | disposition home or self-care (01) ==
LOC: EDUNIT# 16:27 → ER 16:33
DX: S42.292A Other displaced fracture of upper end of left humerus, initial encounter for closed fracture (principal); S16.1XXA Strain of muscle, fascia and tendon at neck level, initial encounter; S80.02XA Contusion of left knee, initial encounter; S80.01XA Contusion of right knee, initial encounter; S00.83XA Contusion of other part of head, initial encounter; S09.90XA Unspecified injury of head, initial encounter; E66.9 Obesity, unspecified; I25.10 Atherosclerotic heart disease of native coronary artery without angina pectoris; I10 Essential (primary) hypertension; Z95.5 Presence of coronary angioplasty implant and graft; Z79.82 Long term (current) use of aspirin; Z79.01 Long term (current) use of anticoagulants; Z23 Encounter for immunization; Z68.41 Body mass index [BMI] 40.0-44.9, adult; W18.30XA Fall on same level, unspecified, initial encounter; Y92.410 Unspecified street and highway as the place of occurrence of the external cause; Y99.0 Civilian activity done for income or pay
CPT/HCPCS: 70450; 70486; 71045; 71260; 72125; 72128; 72131; 72170; 73030; 73060; 73564; 74177; 80053; 82150; 82550; 82553; 83690; 83735; 83874; 84484; 85025; 85379; 85610; 85652; 85730; 86141; 90471; 93005; 93041; 96361; 96374; 96375; 96376; 99284; L3650; 36415; 90715

== ENCOUNTER → 2023-01-03 | Outpatient (CLI) | payer MEDICARE, OTHER ==
[~2023-01-03] MED LIST changes: +ACHD5005 PO; +CATHETER FLUSH 10 ML SYR IVP PRN; +REGADENOSON 0.4 MG/5 ML SYR (LEXISCAN) IV ONE
[2023-01-03 09:09] LABS: BILIRUBIN,TOTAL 0.4 MG/DL (0.1-1.0); CALCIUM 9.6 MG/DL (8.5-10.1); CREATININE SERUM 1.48 MG/DL (0.60-1.30); POTASSIUM 3.7 MMOL/L (3.6-5.0); TOTAL PROTEIN 7.5 GM/DL (6.4-8.2)
[2023-01-03 10:43] VITALS: BP 115/55
--- NOTE | 2023-01-03 13:57 | Cardiology Stress Test Report ---
Stress Test Report Date of Procedure/Referring: Date of Procedure: Jan 03, 2023 PCP No,Local Physician Admitting Physician Admitting Physician: Attending Physician: Patricia Beverly Baseline Heart Rate: 64 Baseline Blood Pressure: Blood Pressure Systolic: 115 Blood Pressure Diastolic: 55 Baseline Vitals Vital Signs Date Time Temp Pulse Resp B/P (MAP) Pulse Ox O2 Delivery O2 Flow Rate FiO2 01/03/23 10:43 77 17 115/55 (75) 98 Room Air Baseline EKG: Baseline EKG: NSR Summary After explaining the procedure to the patient, he signed a consent and then brought to the stress nuclear laboratory. Patient received 0.4 mg Lexiscan for stress test, ECG, heart rate and blood pressure were monitored continuously. Resting and stress dose of radio tracer were injected, imaging was acquired and reviewed in short axis, horizontal long axis and vertical long axis views. TID: 1.03 SSS: 7 SDS: 7 EF: 71 Patient tolerated Lexiscan well Reversible ischemia involving the mid to apical inferior wall and inferolateral wall Normal left ventricular size, ejection fraction 71% Copy Copies To 1: JENNA SÁNCHEZ MD, BASHAR J MD Jan 03, 2023 13:57
== END ==
LOC: CARD 08:39
PROVIDERS: ATTEND Physician Assistant
DX: I25.10 Atherosclerotic heart disease of native coronary artery without angina pectoris (principal); I10 Essential (primary) hypertension
CPT/HCPCS: 78452; 80053; 80061; 93017; A9502; 36415

== ENCOUNTER → 2023-03-09 | Outpatient (RCR) | payer MEDICARE, OTHER ==
[~2023-03-09] MED LIST changes: -CATHETER FLUSH 10 ML SYR IVP PRN; -REGADENOSON 0.4 MG/5 ML SYR (LEXISCAN) IV ONE
== END | disposition home or self-care (01) ==
PROVIDERS: ATTEND Family Medicine Sports Medicine
DX: S42.225D 2-part nondisplaced fracture of surgical neck of left humerus, subsequent encounter for fracture with routine healing (principal); X58.XXXD Exposure to other specified factors, subsequent encounter

== ENCOUNTER 2023-03-22 09:36 | Outpatient (RCR) | payer MEDICARE, OTHER | END 2023-04-09 | disposition home or self-care (01) | LOC: ONC 09:36 | PROVIDERS: ATTEND Internal Medicine Hematology & Oncology | DX: C21.0 Malignant neoplasm of anus, unspecified (principal); E66.9 Obesity, unspecified; J44.9 Chronic obstructive pulmonary disease, unspecified; I10 Essential (primary) hypertension; D69.3 Immune thrombocytopenic purpura; E78.2 Mixed hyperlipidemia; K21.9 Gastro-esophageal reflux disease without esophagitis; F17.208 Nicotine dependence, unspecified, with other nicotine-induced disorders; Z92.21 Personal history of antineoplastic chemotherapy; Z92.3 Personal history of irradiation | CPT/HCPCS: 99213 ==

== ENCOUNTER 2023-04-02 14:44 | Outpatient (RCR) | payer MEDICARE, OTHER | END 2023-04-09 | disposition home or self-care (01) | PROVIDERS: ATTEND Family Medicine Sports Medicine | DX: S42.225D 2-part nondisplaced fracture of surgical neck of left humerus, subsequent encounter for fracture with routine healing (principal); X58.XXXD Exposure to other specified factors, subsequent encounter; I10 Essential (primary) hypertension ==

== ENCOUNTER 2023-04-10 13:48 | Outpatient (RCR) | payer MEDICARE, OTHER | END 2023-04-27 11:51 | disposition home or self-care (01) | PROVIDERS: ATTEND Family Medicine Sports Medicine | DX: S42.225D 2-part nondisplaced fracture of surgical neck of left humerus, subsequent encounter for fracture with routine healing (principal); X58.XXXD Exposure to other specified factors, subsequent encounter; I10 Essential (primary) hypertension ==

== ENCOUNTER → 2023-05-30 | Outpatient (CLI) | payer MEDICARE, OTHER ==
[~2023-05-30] MED LIST changes: -GABA-490 PO; +GABA-491 PO; +HOLD METFORMIN - RECEIVED CONTRAST 20 ML VIAL IV SCH; +IOHEXOL 350 MG/ML 100 ML (OMNIPAQUE 350) VIAL IV ONE; +NS 100 ML (IVPB) BAG IV ONE
--- NOTE | 2023-05-30 11:35 | Diagnostic Imaging Report ---
EXAMINATION: CT chest, abdomen and pelvis with intravenous contrast. TECHNIQUE: Multiple contiguous axial images were obtained through the chest, abdomen and pelvis after the uneventful administration of intravenous contrast. All CT scans use one or more of the following dose optimizing techniques: automated exposure control, MA and/or KvP adjustment based on patient size and exam type or iterative reconstruction. HISTORY: Anal cancer follow-up COMPARISON: 12/09/2022 FINDINGS: Thyroid: The visualized thyroid gland is normal. Mediastinum: Heart size is normal without significant pericardial effusion. Calcifications of the aorta and coronary vessels. Thoracic aorta is normal in caliber. No suspicious lymphadenopathy. Lungs and airways: The lungs are clear without consolidation, pleural effusion, or pneumothorax. No suspicious pulmonary nodule. The airways are normal. Solid organs: The liver is normal without focal lesion. The gallbladder is surgically absent. There is no biliary ductal dilation. Pancreas is normal. Spleen is normal. Adrenal glands are normal. There are left renal cysts present. No hydronephrosis. Bowel: The stomach and small bowel are normal without obstruction. There is scattered colonic diverticulosis. There is mild wall thickening seen within the distal rectum and anal canal similar to prior exam. The appendix is normal. Peritoneum: There is no intraperitoneal free fluid or free air. No suspicious lymphadenopathy. Vasculature: Calcification of the aorta without aneurysm. Musculoskeletal: Degenerative changes of the spine without suspicious osseous lesion or acute compression fracture. Pelvis: The prostate gland is normal. The urinary bladder is normal. IMPRESSION: 1. Stable wall thickening of the distal rectum and anal canal which may be related to posttreatment changes or renal cancer. 2. No new findings of metastatic disease within the chest, abdomen, or pelvis. Dictated by: Dictated on workstation # [id number]
== END ==
LOC: RAD 10:27
PROVIDERS: ATTEND Internal Medicine Hematology & Oncology
DX: C21.1 Malignant neoplasm of anal canal (principal)
CPT/HCPCS: 71260; 74177